=== PATIENT | female | born 1945 | race Caucasian/White ===

== ENCOUNTER 2016-10-10 14:11 | Emergency (ER) | payer OTHER ==
[~2016-10-10] VITALS: Ht 152.4 cm; Wt 106.4 kg
[~2016-10-10 14:11] MED LIST: AMB5 PO; ASPEC325 PO; CLC100 PO; CLR10 PO; CMBIN INH; FRRG PO; HYDR-5688 PO; LYR75 PO; MLXESC PO; MOMLX PO; MULT-589 PO; PRT40 PO
[2016-10-10 14:21] VITALS: TEMP 36.8; Ht 152.4 cm; Wt 106.4 kg
[2016-10-10 14:27] VITALS: O2SAT 99
[2016-10-10] MEDS ORDERED: SODIUM CHLORIDE 0.9% 1000ML 1,000 ML IV STA (14:37)
--- NOTE | 2016-10-10 14:56 | EMERGENCY ROOM VISIT NOTE ---
History Report prepared by Charanjit: Brittney Houston Under the Supervision of: Dr. Kadie Weber D.O. 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 She had just finished eating lunch with her family at [facility] when she suddenly became very hot and nauseated. Her vision started to go black and she was dizzy. She denies feeling like the room was spinning and states that she just felt very lightheaded. Her states that suddenly her head dropped to the side while she was sitting down. He called to her, but she did not respond or look at him. states that she was very pale and her face felt cold, wet, and clammy. The patient does not think that she completely lost consciousness, but she does not remember hearing her talking to her. When she regained complete consciousness, she felt better and was no longer nauseated or lightheaded. denies any shaking or seizure-like activity with today's episode. The patient denies any personal or family history of seizures. Her states that the episodes lasted for about 5-10 minutes before the patient felt better. She states that she is feeling much better now and has no complaints at this time. The patient has had similar episodes over the past several months. She states that it seems to happen after she eats a big meal, although, it has also occurred before she has eaten a meal. She has talked to her telecommunications professional about these episodes. 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 Pt denies headache, blurry vision fevers, chills, chest pain, palpitations, shortness of breath, vomiting, diarrhea, pain with urination, melena, recent illness, and any new swelling in her legs. Source of History: patient, spouse/significant other Onset: SURVEILLANCE SPECIALIST Position: other (global) Quality: other (syncope) Timing: other (episode) Modifying Factors (Worsening): eating Modifying Factors (Relieving): other (time) Associated Symptoms: + nausea, No SOB, No chest pain, No chills, No diarrhea , No fevers, No headache, No melena, No urinary symptoms, No vomiting Note: Pt felt hot, dizzy, and lightheaded. Review of Systems See HPI for pertinent positives & negatives. A total of 10 systems reviewed and were otherwise negative. Past Medical & Surgical Medical Problems: (1) Esophageal reflux (2) Large cell lymphoma, lymph nodes of head, face, and neck (3) Lymphoma in remission (4) right hip AVN Family History No pertinent history stated. Social History Smoking Status: Former Smoker Alcohol Use: none Marital Status: Housing Status: lives with significant other Current/Historical Medications Scheduled Atorvastatin (Lipitor), 20 MG PO DAILY Lisinopril (Lisinopril), 5 MG PO DAILY Metoprolol Succinate (Metoprolol Succinate ER), 25 MG PO DAILY Scheduled PRN Diphenhydramine Hcl (Allergy Relief), 25 MG PO DAILY PRN for ALLERGIC REACTION Ibuprofen (Advil), 400 MG PO Q6 PRN for Pain Allergies Coded Allergies: Penicillins (Verified Allergy, Severe, ANAPHYLAXIS, 10/10/16) Uncoded Allergies: BASE METALS (Allergy, Mild, RASH, 10/30/12) Physical Exam Vital Signs Date Time Temp Pulse Resp B/P Pulse Ox O2 Delivery O2 Flow Rate FiO2 10/10/16 18:08 55 139/73 98 10/10/16 17:31 130/68 10/10/16 17:16 59 14 97 10/10/16 16:31 103/60 10/10/16 16:16 60 20 97 10/10/16 16:00 96/55 10/10/16 15:46 61 17 10/10/16 15:11 61 19 10/10/16 14:41 73 10/10/16 14:30 105/54 10/10/16 14:28 68 10/10/16 14:27 99 Room Air 10/10/16 14:21 36.8 72 19 106/61 99 Room Air 10/10/16 14:19 106/61 Physical Exam GENERAL: alert, well appearing, well nourished, no distress, non-toxic EYE EXAM: normal conjunctiva, PERRL and EOM's grossly intact OROPHARYNX: no exudate, no erythema, lips, buccal mucosa, and tongue normal and mucous membranes are moist NECK: supple, no nuchal rigidity, no adenopathy, non-tender LUNGS: Clear to auscultation. Normal chest wall mechanics HEART: no murmurs, S1 normal and S2 normal ABDOMEN: abdomen soft, non-tender, normo-active bowel sounds, no masses, no rebound or guarding. BACK: Back is symmetrical on inspection and there is no deformity, no midline tenderness, no CVA tenderness. SKIN: no rashes and no bruising UPPER EXTREMITIES: upper extremities are grossly normal. LOWER EXTREMITIES: No pitting edema. NEURO EXAM: Normal sensorium, cranial nerves II-XII grossly intact, normal speech, limited ROM testing of the bilateral lower extremities - pt states is chronic. Sensation intact. Negative pronator drift, no ataxia, no facial droop. Medical Decision & Procedures ER Provider Diagnostic Interpretation: Radiology results have been interpreted by the radiologist and reviewed by me. HEAD CT NONCONTRAST CT DOSE: 537.48 mGy.cm HISTORY: syncope, hx brain tumor TECHNIQUE: Multiaxial CT images of the head were performed without the use of intravenous contrast. Automated exposure control was utilized for this study. Comparison: Head CT 09/18/2008. Brain MRI 09/28/2008. Findings: The paranasal sinuses and mastoid air cells are clear. There are right frontal and parietal desiree holes. There is metallic plate overlying the right parietal desiree hole. No calvarial fractures. There are no masses identified on this noncontrast study. There is no hematoma, midline shift, acute infarct. There is abnormal hypodensity within the white matter of the frontal and parietal lobes. There is mild atrophy within the brain. Impression: 1. No acute hemorrhage. 2. No acute infarct. 3. Abnormal hypodensity within the white matter of the frontal and parietal lobes. This favors posttreatment changes. Comparison to a recent study would be helpful to assess for stability. No definite masses identified. Electronically signed by: Tarun Howard M.D. 10/10/2016 3:51 PM Dictated Date/Time: 10/10/2016 3:47 PM CHEST ONE VIEW PORTABLE HISTORY: syncope COMPARISON: Chest 09/28/2008. FINDINGS: No focal lung consolidations to suggest pneumonia. No evidence for pulmonary edema. The heart is top normal in size. There are low lung volumes. No pleural effusions. No pneumothorax. Cholecystectomy. Increased markings within the right medial lung base is likely due to vascular crowding from the low lung volumes. IMPRESSION: No acute process. Electronically signed by: Tarun Howard M.D. 10/10/2016 3:56 PM Dictated Date/Time: 10/10/2016 3:55 PM CHEST CTA for PULMONARY ARTERIES CT DOSE: 599.79 mGy.cm HISTORY: Syncope. TECHNIQUE: Multiaxial CT images of the chest were performed following the intravenous administration of contrast to evaluate the pulmonary arteries. Maximal intensity projection images were also obtained. COMPARISON STUDY: None. FINDINGS: There is a normal caliber thoracic aorta with no evidence for dissection. There is no evidence for pulmonary embolus. No pleural effusions. No pneumothorax. The liver and spleen are unremarkable. No mediastinal or hilar lymphadenopathy. The central airways are patent. Cholecystectomy. Mild elevation of the right hemidiaphragm. Question of bilateral faint perihilar airspace opacities and mild bronchial wall thickening. IMPRESSION: 1. No evidence for pulmonary embolus. 2. There appears be faint bilateral perihilar airspace opacities and mild bronchial wall thickening. This could be due to air trapping. However, a low-grade pneumonitis or developing mild congestive change could also have a similar appearance. Electronically signed by: Tarun Howard M.D. 10/10/2016 5:10 PM Dictated Date/Time: 10/10/2016 5:04 PM Laboratory Results 10/10/16 14:55 Red Blood Count 3.60, Mean Corpuscular Volume 99.7, Mean Corpuscular Hemoglobin 31.9, Mean Corpuscular Hemoglobin Concent 32.0, Mean Platelet Volume 10.6, Neutrophils (%) (Auto) 78.9, Lymphocytes (%) (Auto) 13.7, Monocytes (%) (Auto) 6.2, Eosinophils (%) (Auto) 0.8, Basophils (%) (Auto) 0.2, Neutrophils # (Auto) 4.98, Lymphocytes # (Auto) 0.86, Monocytes # (Auto) 0.39, Eosinophils # (Auto) 0.05, Basophils # (Auto) 0.01 10/10/16 14:55 Test 10/10/16 14:55 10/10/16 17:10 White Blood Count 6.30 K/uL (4.8-10.8) Red Blood Count 3.60 M/uL (4.2-5.4) Hemoglobin 11.5 g/dL (12.0-16.0) Hematocrit 35.9 % (37-47) Mean Corpuscular Volume 99.7 fL (80-100) Mean Corpuscular Hemoglobin 31.9 pg (25-34) Mean Corpuscular Hemoglobin Concent 32.0 g/dl (32-36) Platelet Count 170 K/uL (130-400) Mean Platelet Volume 10.6 fL (7.4-10.4) Neutrophils (%) (Auto) 78.9 % Lymphocytes (%) (Auto) 13.7 % Monocytes (%) (Auto) 6.2 % Eosinophils (%) (Auto) 0.8 % Basophils (%) (Auto) 0.2 % Neutrophils # (Auto) 4.98 K/uL (1.4-6.5) Lymphocytes # (Auto) 0.86 K/uL (1.2-3.4) Monocytes # (Auto) 0.39 K/uL (0.11-0.59) Eosinophils # (Auto) 0.05 K/uL (0-0.5) Basophils # (Auto) 0.01 K/uL (0-0.2) RDW Standard Deviation 50.8 fL (36.4-46.3) RDW Coefficient of Variation 13.9 % (11.5-14.5) Immature Granulocyte % (Auto) 0.2 % Immature Granulocyte # (Auto) 0.01 K/uL (0.00-0.02) D-Dimer 870 ug/L FEU (0-500) Anion Gap 7.0 mmol/L (3-11) Est Creatinine Clear Calc Drug Dose 60.1 ml/min Estimated GFR () 69.4 Estimated GFR (Non- 59.9 BUN/Creatinine Ratio 20.3 (10-20) Calcium Level 7.9 mg/dl (8.5-10.1) Total Bilirubin 0.4 mg/dl (0.2-1) Aspartate Amino Transf (AST/SGOT) 13 U/L (15-37) Alanine Aminotransferase (ALT/SGPT) 17 U/L (12-78) Alkaline Phosphatase 138 U/L (45-117) Troponin I < 0.015 ng/ml (0-0.045) Total Protein 6.2 gm/dl (6.4-8.2) Albumin 3.1 gm/dl (3.4-5.0) Globulin 3.1 gm/dl (2.5-4.0) Albumin/Globulin Ratio 1.0 (0.9-2) Urine Color YELLOW Urine Appearance CLEAR (CLEAR) Urine pH 5.0 (4.5-7.5) Urine Specific [place] 1.022 (1.000-1.030) Urine Protein NEG (NEG) Urine Glucose (UA) NEG (NEG) Urine Ketones NEG (NEG) Urine Occult Blood NEG (NEG) Urine Nitrite NEG (NEG) Urine Bilirubin NEG (NEG) Urine Urobilinogen NEG (NEG) Urine Leukocyte Esterase NEG (NEG) Laboratory results per my review. Medications Administered Medications (Trade) Dose Ordered Sig/Rissa Route Start Time Stop Time Status Last Admin Dose Admin Sodium Chloride (Nss 1000ml) 1,000 ml @ 250 mls/hr Q4H STAT IV 10/10/16 14:37 10/10/16 18:32 DC 10/10/16 15:39 250 MLS/HR ECG Indication: syncope Rate (beats per minute): 60 Rhythm: normal sinus Findings: LBBB, no acute ischemic change, other (normal axis) Comparison ECG Date: 10/14/14 Change: no significant change ED Course 1424: The patient was evaluated in room B9. A complete history and physical exam was performed. 1437: NSS 1000 ml @ 250 mls/hr IV 1526: The patient is at CT. 1610: I reevaluated the patient and she is doing well. 1735: I reassessed the patient at this time. She is feeling better and resting comfortably. She and states is similar to prior episodes and that they feel the episodes typically happen after eating a large meal. She was up to go to the bathroom and felt steady on her feet. I discussed the results and treatment plan with the patient and her family. I answered all pertaining questions that they had. They expressed understanding and verbalized agreement. The patient will be discharged home. Medical Decision Differential diagnosis includes etiologies such as vasovagal event, infection, hypoglycemia, electrolyte abnormalities, cardiac sources, intracerebral event, toxicologic, neurologic, as well as others were entertained. Patient well-appearing here throughout, labs and imaging reassuring. Discussed all results with patient at bedside. Patient and related with a steady gait, had no recurrence of any symptoms, and tolerated by mouth. Discussed given pattern of events related to eating and description of event today, more likely vasovagal event. No evidence of dysrhythmias noted on telemetry, doubt seizure , occult infectious etiology, ACS, dissection, no evidence of PE, doubt CVA, patient mildly dehydrated but otherwise well-appearing. No other change in patient's multiple chronic conditions and medications. Doubt adverse reaction of medication. Discussed with patient close follow-up with family doctor and cardiology as a precaution, symptoms to watch and return for, they verbalized understanding were agreeable with plan. Mild elevation patient's alkaline phosphatase, do not feel this is clinically significant or relevant to the patient's presentation today. Impression Primary Impression: Syncope Scribe Attestation The scribe's documentation has been prepared under my direction and personally reviewed by me in its entirety. I confirm that the note above accurately reflects all work, treatment, procedures, and medical decision making performed by me. Departure Information Dispostion Home / Self-Care Referrals Reid Young M.D.(ZAKIA) (PCP) Forms HOME CARE DOCUMENTATION FORM, IMPORTANT VISIT INFORMATION Patient Instructions My [facility] Additional Instructions Please follow-up with your family doctor about the episode you had today. Please continue regular medications as prescribed. Please drink plenty of water. If you have any recurrent episodes of lightheadedness, nausea, feel hot or cold, develop chest pain or pressure, trouble breathing, feel you are unable to walk, or you have any other new concerns, please return the emergency room. Problem Qualifiers Primary Impression: Syncope Syncope type: vasovagal syncope Qualified Codes: R55 - Syncope and collapse
[2016-10-10] MEDS ORDERED: LSN5 PO (15:08)
[2016-10-10] MEDS ORDERED: ATOR-22 PO (15:08)
[2016-10-10] MEDS ORDERED: TPRSR/25 PO (15:08)
[2016-10-10] MEDS ORDERED: DIPH25CA PO (15:10)
[2016-10-10] MEDS ORDERED: IBUP-1050 PO (15:10)
[2016-10-10 15:11] LABS: BASO % 0.2 %; BASO ABS # 0.01 K/uL (0-0.2); COMPLETE YES; EOS % 0.8 %; HEMATOCRIT 35.9 % (37-47); IG% 0.2 %; LYMPH % 13.7 %; LYMPH ABS # 0.86 K/uL (1.2-3.4); MEAN CELL VOLUME 99.7 fL (80-100); MEAN CORPUSCULAR HEMOGLOBIN 31.9 pg (25-34); MEAN PLATELET VOLUME 10.6 fL (7.4-10.4); MONO % 6.2 %; NEUT % 78.9 %; PLATELET COUNT 170 K/uL (130-400)
[2016-10-10 15:24] LABS: ALT/SGPT 17 U/L (12-78); AST/SGOT 13 U/L (15-37); BLOOD UREA NITROGEN 19 mg/dl (7-18); BUN/CREATININE RATIO 20.3 (10-20); CALCIUM 7.9 mg/dl (8.5-10.1); CARBON DIOXIDE 26 mmol/L (21-32); CHLORIDE 111 mmol/L (98-107); CREATININE 0.96 mg/dl (0.60-1.20); GLUCOSE 108 mg/dl (70-99); POTASSIUM 3.8 mmol/L (3.5-5.1); SODIUM 144 mmol/L (136-145)
[2016-10-10 15:29] LABS: ALKALINE PHOSPHATASE 138 U/L (45-117)
--- NOTE | 2016-10-10 15:53 | DIAGNOSTIC IMAGING REPORT ---
HEAD CT NONCONTRAST CT DOSE: 537.48 mGy.cm HISTORY: syncope, hx brain tumor TECHNIQUE: Multiaxial CT images of the head were performed without the use of intravenous contrast. Automated exposure control was utilized for this study. Comparison: Head CT 09/18/2008. Brain MRI 09/28/2008. Findings: The paranasal sinuses and mastoid air cells are clear. There are right frontal and parietal desiree holes. There is metallic plate overlying the right parietal desiree hole. No calvarial fractures. There are no masses identified on this noncontrast study. There is no hematoma, midline shift, acute infarct. There is abnormal hypodensity within the white matter of the frontal and parietal lobes. There is mild atrophy within the brain. Impression: 1. No acute hemorrhage. 2. No acute infarct. 3. Abnormal hypodensity within the white matter of the frontal and parietal lobes. This favors posttreatment changes. Comparison to a recent study would be helpful to assess for stability. No definite masses identified. Electronically signed by: Tarun Howard M.D. 10/10/2016 3:51 PM Dictated Date/Time: 10/10/2016 3:47 PM
--- NOTE | 2016-10-10 15:57 | DIAGNOSTIC IMAGING REPORT ---
CHEST ONE VIEW PORTABLE HISTORY: syncope COMPARISON: Chest 09/28/2008. FINDINGS: No focal lung consolidations to suggest pneumonia. No evidence for pulmonary edema. The heart is top normal in size. There are low lung volumes. No pleural effusions. No pneumothorax. Cholecystectomy. Increased markings within the right medial lung base is likely due to vascular crowding from the low lung volumes. IMPRESSION: No acute process. Electronically signed by: Tarun Howard M.D. 10/10/2016 3:56 PM Dictated Date/Time: 10/10/2016 3:55 PM
[2016-10-10] MEDS ORDERED: OPTIRAY 320 IV PRN (16:45)
--- NOTE | 2016-10-10 17:12 | DIAGNOSTIC IMAGING REPORT ---
CHEST CTA for PULMONARY ARTERIES CT DOSE: 599.79 mGy.cm HISTORY: Syncope. TECHNIQUE: Multiaxial CT images of the chest were performed following the intravenous administration of contrast to evaluate the pulmonary arteries. Maximal intensity projection images were also obtained. COMPARISON STUDY: None. FINDINGS: There is a normal caliber thoracic aorta with no evidence for dissection. There is no evidence for pulmonary embolus. No pleural effusions. No pneumothorax. The liver and spleen are unremarkable. No mediastinal or hilar lymphadenopathy. The central airways are patent. Cholecystectomy. Mild elevation of the right hemidiaphragm. Question of bilateral faint perihilar airspace opacities and mild bronchial wall thickening. IMPRESSION: 1. No evidence for pulmonary embolus. 2. There appears be faint bilateral perihilar airspace opacities and mild bronchial wall thickening. This could be due to air trapping. However, a low-grade pneumonitis or developing mild congestive change could also have a similar appearance. Electronically signed by: Tarun Howard M.D. 10/10/2016 5:10 PM Dictated Date/Time: 10/10/2016 5:04 PM
[2016-10-10 17:25] LABS: URINE APPEARANCE CLEAR (CLEAR); URINE BILIRUBIN NEG (NEG); URINE COLOR YELLOW; URINE NITRITE NEG (NEG); URINE SPECIFIC GRAVITY 1.022 (1.000-1.030); UROBILINOGEN NEG (NEG); ZZUR CULT IF INDIC CLEAN CATCH NO
[2016-10-10 17:29] LABS: MANUAL MICROSCOPIC REQUIRED? NO; REVIEW REQ? NO
[2016-10-10 18:08] VITALS: BP 139/73; PULSE 55; O2SAT 98
== END 2016-10-10 18:09 | disposition home or self-care (01) ==
LOC: EDBD 14:11 → C.EDB 14:12
DX: R55 Syncope and collapse (principal); R11.0 Nausea; R42 Dizziness and giddiness; Z85.72 Personal history of non-Hodgkin lymphomas; Z85.841 Personal history of malignant neoplasm of brain; M87.051 Idiopathic aseptic necrosis of right femur; K21.9 Gastro-esophageal reflux disease without esophagitis; Z87.891 Personal history of nicotine dependence

== ENCOUNTER 2016-11-19 08:16 | Emergency (ER) | payer OTHER ==
[~2016-11-19] VITALS: Ht 152.4 cm; Wt 102.0 kg
[~2016-11-19 08:16] MED LIST changes: -AMB5 PO; -ASPEC325 PO; +ATOR-22 PO; -CLC100 PO; -CLR10 PO; -CMBIN INH; +DIPH25CA PO; -FRRG PO; -HYDR-5688 PO; +IBUP-1050 PO; +LSN5 PO; -LYR75 PO; -MLXESC PO; -MOMLX PO; -MULT-589 PO; -PRT40 PO; +TPRSR/25 PO
[2016-11-19 08:20] VITALS: TEMP 36.6; Ht 152.4 cm; Wt 102.0 kg
[2016-11-19] MEDS ORDERED: ONDANSETRON INJ 2 MG/ML 2 ML VIAL IV STA (08:52)
[2016-11-19] MEDS ORDERED: MoRPHine SULFATE 4 MG/ML 1 ML CARP\\VIAL IV STA ×2 (08:52→11:02)
--- NOTE | 2016-11-19 08:59 | EMERGENCY ROOM VISIT NOTE ---
History Report prepared by Charanjit: Lizz Armendariz Under the Supervision of: Dr. Endy Long M.D. First contact with patient: 08:40 Chief Complaint: FALL Stated Complaint: FELL,HURT R SHOULDER/KNEE, A LOT OF PAIN History of Present Illness The patient is a 71 year old female who presents to the Emergency Room with complaints of an episode of a fall beginning 3 hours ago. The patient states that she fell this morning after getting out of bed and tripping on her cat. She reports that she fell onto her right side. She complains of throbbing pain in her right knee and right shoulder that radiates into the wrist. The patient denies any chest pain, dizziness, shortness of breath, neck pain, back pain, abdominal pain, numbness, and weakness. She notes that she has a history of cancer and hip replacement that is doing well. Source of History: patient, spouse/significant other Onset: 3 hours ago Position: other (global) Quality: other (throbbing) Timing: other (episode) Associated Symptoms: No neck pain, No chest pain, No SOB, No abdominal pain , No back pain, No weakness, No numbness Note: Pt complains of right knee and shoulder pain that radiates into the hip. The patient denies any dizziness. Review of Systems See HPI for pertinent positives & negatives. A total of 10 systems reviewed and were otherwise negative. Past Medical & Surgical Medical Problems: (1) Esophageal reflux (2) Large cell lymphoma, lymph nodes of head, face, and neck (3) Lymphoma in remission (4) right hip AVN Old medical records were reviewed. Nurse's notes were reviewed and I agree with. Family History No pertinent family history stated. Social History Smoking Status: Former Smoker Alcohol Use: none Marital Status: Housing Status: lives with significant other Current/Historical Medications Scheduled Atorvastatin (Lipitor), 20 MG PO DAILY Lisinopril (Lisinopril), 5 MG PO DAILY Metoprolol Succinate (Metoprolol Succinate ER), 25 MG PO DAILY Scheduled PRN Oxycodone Immediate Rel Tab (Roxicodone Ir), 1 TAB PO Q6 PRN for Severe Pain Allergies Coded Allergies: Penicillins (Verified Allergy, Severe, ANAPHYLAXIS, 10/10/16) Uncoded Allergies: BASE METALS (Allergy, Mild, RASH, 10/30/12) Physical Exam Vital Signs Date Time Temp Pulse Resp B/P (MAP) Pulse Ox O2 Delivery O2 Flow Rate FiO2 11/19/16 11:23 60 18 119/69 94 Room Air 11/19/16 10:54 60 18 131/80 94 11/19/16 08:20 36.6 96 18 101/60 95 Room Air Physical Exam General: Well developed well nourished in no acute distress, breathing comfortably on room air. Normal speech. Mildly uncomfortable appearing older female. HEENT: Normal cephalic atraumatic. Pupils are equal round and reactive to light. Sclerae are anicteric. Extraocular movements are intact. Oropharynx is pink with moist mucous membranes. No swelling of the mouth lips or tongue. Neck: Supple with a midline trachea. No meningeal signs or stiffness, no JVD or bruits. No Stridor. Chest: Clear to auscultation bilaterally. No wheezes or rhonchi. No increased work of breathing. Heart: regular rate and rhythm. Abdomen: Soft nontender, nondistended without rebound guarding or rigidity. Extremities: No cyanosis clubbing or edema. No calf tenderness or assymetry. Right shoulder has mild pain with movement but has full ROM, right knee is tender to palpation. Spine/Back. Non tender to palpation. No CVA tenderness Skin: Good turgor without rashes. Neurologic exam: Cranial nerves two through 12 are intact. Motor and sensation are intact and symmetrical throughout. GCS 15. Medical Decision & Procedures ER Provider Diagnostic Interpretation: X-ray results as stated below per interpretation by me and the radiologist: RIGHT SHOULDER 3 VIEWS FINDINGS: There is no fracture or dislocation. Soft tissues are unremarkable. No radiopaque foreign bodies. IMPRESSION: No fractures. Electronically signed by: Tarun Howard M.D. 11/19/2016 9:48 AM Dictated Date/Time: 11/19/2016 9:47 AM RIGHT KNEE 2 VIEWS FINDINGS: AP and crosstable lateral portable views of the right knee are obtained. No prior studies are available for comparison at the time of dictation. The skeletal structures are osteopenic. No fracture is seen. There is mild tricompartmental degenerative joint space narrowing. Small patellar enthesophytes are observed. No joint effusion is seen. Mild prepatellar soft tissue swelling is noted. IMPRESSION: 1. Mild soft tissue swelling. No fracture is identified. 2. Osteopenia and minimal degenerative change as above. Electronically signed by: Renaldo Leong M.D. 11/19/2016 9:46 AM Dictated Date/Time: 11/19/2016 9:45 AM CHEST ONE VIEW PORTABLE FINDINGS: The cardiac and mediastinal contours are normal. There is no evidence of focal pulmonary consolidation. There is no evidence of failure. No pleural effusions are visualized.[ There is no pneumothorax. Surgical clips are visualized the base the left neck. There are right upper quadrant surgical clips likely secondary to a prior cholecystectomy. IMPRESSION: No active disease in the chest. Electronically signed by: Domenico Dee M.D. 11/19/2016 9:52 AM Dictated Date/Time: 11/19/2016 9:51 AM Medications Administered Medications (Trade) Dose Ordered Sig/Rissa Route Start Time Stop Time Status Last Admin Dose Admin Morphine Sulfate (MoRPHine SULFATE INJ) 4 mg NOW STAT IV 11/19/16 08:52 11/19/16 08:54 DC 11/19/16 09:02 4 MG Ondansetron HCl (Zofran Inj) 4 mg NOW STAT IV 11/19/16 08:52 11/19/16 08:54 DC 11/19/16 09:02 4 MG Morphine Sulfate (MoRPHine SULFATE INJ) 4 mg NOW STAT IV 11/19/16 11:02 11/19/16 11:04 DC 11/19/16 11:17 4 MG ED Course 0840: Past medical records reviewed. The patient was evaluated in room B7, and a complete history and physical examination were performed. 0852: Zofran Inj 4mg IV, Morphine Sulfate 4mg IV. 1059: I reevaluated the patient. She is having some pain. 1102: Morphine Sulfate 4mg IV. 1131: Upon reevaluation, the patient is doing well. I discussed the results and treatment plan with the patient. She verbalized agreement of the treatment plan. The patient was discharged home. Medical Decision Differential diagnosis includes fracture, dislocation, sprain, contusion. Blood pressure Screening: Patient was found to have normal blood pressure on screening and does not require follow-up. Medication Reconciliation: I attest that I have personally reviewed the patient' s current medication list. This patient comes in as described above. She was placed in room B7. She is here for treatment and evaluation of a mechanical fall. She has pain in the right shoulder and knee. I obtained x-rays of the right knee, shoulder and chest. There are no acute fractures or abnormalities seen most likely she has sprains and contusions. She was given IV morphine and Zofran twice while she was here she was given a sling and Esteban wrap . she should rest, ice ,and elevate .use ibuprofen for pain. For breakthrough pain, she can use OxyIR 5 mg, one or 2 pills every 4-6 hours as needed. She was warned that OxyIR could make her drowsy and do not take for drinking, driving, working. She was happy with plan and discharged to home. Impression Primary Impression: Contusion of right shoulder Additional Impression: Contusion of right knee Scribe Attestation The scribe's documentation has been prepared under my direction and personally reviewed by me in its entirety. I confirm that the note above accurately reflects all work, treatment, procedures, and medical decision making performed by me. Departure Information Dispostion Home / Self-Care Prescriptions Oxycodone Immediate Rel Tab (ROXICODONE IR) 5 Mg Tab 1 TAB PO Q6 Y for Severe Pain, #24 TAB Prov: Endy Long M.D. 11/19/16 Referrals Reid Young M.D.([facility]) (PCP) Forms HOME CARE DOCUMENTATION FORM, IMPORTANT VISIT INFORMATION Patient Instructions My [facility] Additional Instructions Rest. Drink plenty of fluids. Ice intermittently. Use sling and Esteban wrap for comfort. Use ibuprofen 400 mg every 6 hours, take with food For more severe pain use OxyIR 5 mg, 1 pill every 6 hours as needed OxyIR may make you drowsy- do not take before drinking, driving, working Return if: Increasing pain, worseningof symptoms, shortness of breath, fever chills, any new problems or concerns. Follow-up with your doctor Tuesday for recheck Problem Qualifiers
--- NOTE | 2016-11-19 09:48 | DIAGNOSTIC IMAGING REPORT ---
RIGHT KNEE 2 VIEWS CLINICAL HISTORY: Right knee pain. FINDINGS: AP and crosstable lateral portable views of the right knee are obtained. No prior studies are available for comparison at the time of dictation. The skeletal structures are osteopenic. No fracture is seen. There is mild tricompartmental degenerative joint space narrowing. Small patellar enthesophytes are observed. No joint effusion is seen. Mild prepatellar soft tissue swelling is noted. IMPRESSION: 1. Mild soft tissue swelling. No fracture is identified. 2. Osteopenia and minimal degenerative change as above. Electronically signed by: Renaldo Leong M.D. 11/19/2016 9:46 AM Dictated Date/Time: 11/19/2016 9:45 AM
--- NOTE | 2016-11-19 09:49 | DIAGNOSTIC IMAGING REPORT ---
RIGHT SHOULDER 3 VIEWS HISTORY: Right shoulder pain. eval for trauma Right COMPARISON: None. FINDINGS: There is no fracture or dislocation. Soft tissues are unremarkable. No radiopaque foreign bodies. IMPRESSION: No fractures. Electronically signed by: Tarun Howard M.D. 11/19/2016 9:48 AM Dictated Date/Time: 11/19/2016 9:47 AM
--- NOTE | 2016-11-19 09:53 | DIAGNOSTIC IMAGING REPORT ---
CHEST ONE VIEW PORTABLE CLINICAL HISTORY: Atypical chest pain. Trauma. COMPARISON STUDY: 10/10/2016 FINDINGS: The cardiac and mediastinal contours are normal. There is no evidence of focal pulmonary consolidation. There is no evidence of failure. No pleural effusions are visualized.[ There is no pneumothorax. Surgical clips are visualized the base the left neck. There are right upper quadrant surgical clips likely secondary to a prior cholecystectomy. IMPRESSION: No active disease in the chest. Electronically signed by: Domenico Dee M.D. 11/19/2016 9:52 AM Dictated Date/Time: 11/19/2016 9:51 AM
[2016-11-19] MEDS ORDERED: OXYC1TAB3 PO (11:05)
[2016-11-19 11:23] VITALS: BP 119/69; PULSE 60; O2SAT 94
== END 2016-11-19 11:53 | disposition home or self-care (01) ==
LOC: C.EDB 08:17
DX: S40.011A Contusion of right shoulder, initial encounter (principal); S80.01XA Contusion of right knee, initial encounter; W01.0XXA Fall on same level from slipping, tripping and stumbling without subsequent striking against object, initial encounter; Z96.649 Presence of unspecified artificial hip joint; C85.91 Non-Hodgkin lymphoma, unspecified, lymph nodes of head, face, and neck; Z87.891 Personal history of nicotine dependence; Z79.899 Other long term (current) drug therapy

== ENCOUNTER 2017-10-12 17:43 | Emergency (ER) | payer OTHER ==
[~2017-10-12] VITALS: Ht 152.4 cm; Wt 96.4 kg
[~2017-10-12 17:43] MED LIST changes: -DIPH25CA PO; -IBUP-1050 PO
[2017-10-12 17:50] VITALS: TEMP 36.5; Ht 152.4 cm; Wt 96.4 kg
[2017-10-12] MEDS ORDERED: IBUPROFEN 600 MG TAB PO STA (18:13)
[2017-10-12] MEDS ORDERED: LSN25 PO (18:26)
[2017-10-12] MEDS ORDERED: DIPH1TAB87 PO (18:26)
[2017-10-12] MEDS ORDERED: IBUP-1050 PO (18:26)
--- NOTE | 2017-10-12 19:21 | DIAGNOSTIC IMAGING REPORT ---
HEAD CT NONCONTRAST CT DOSE: 720.95 mGycm HISTORY: fall, balance issues, chronic left sided weakness TECHNIQUE: Multiaxial CT images of the head were performed without the use of intravenous contrast. Automated exposure control was utilized for this study. A dose lowering technique was utilized adhering to the principles of ALARA. Comparison: Head CT 10/10/2016. Findings: The paranasal sinuses and mastoid air cells are clear. There are right frontal and parietal desiree holes. There is metallic plate overlying the right parietal desiree hole. No calvarial fractures. There are no masses identified on this noncontrast study. There is no hematoma, midline shift, acute infarct. There is abnormal hypodensity within the white matter of the frontal and parietal lobes. There is mild atrophy within the brain. Impression: 1. No acute hemorrhage. 2. No acute infarct. 3. Overall, no significant change. Abnormal hypodensity within the white matter of the frontal and parietal lobes. Electronically signed by: Tarun Howard M.D. 10/12/2017 7:20 PM Dictated Date/Time: 10/12/2017 7:13 PM
--- NOTE | 2017-10-12 19:21 | DIAGNOSTIC IMAGING REPORT ---
CERVICAL SPINE W/O CT DOSE: 583.66 mGycm CLINICAL HISTORY: 71 years-old Female with fall, balance issues, . Acute neck injury status post fall COMPARISON: CT head of same day TECHNIQUE: Multiple axial CT images of the cervical spine were obtained without contrast. A dose lowering technique was utilized adhering to the principles of ALARA. FINDINGS: The bones appear mildly demineralized. Circumscribed cystic lesion about the occiput, 1.6 cm suggests arachnoid granulation. Moderate multilevel facet arthrosis. Moderate intervertebral disc space narrowing at C4-C5, C5-C6 and C6-C7. Evaluation of the central canal and neural foramina is better assessed by MRI. Mastoid air cells and middle ear cavities appear clear. Mild mucoperiosteal thickening about the right maxillary sinus. There is no acute cervical spine fracture or subluxation identified. Ill-defined groundglass opacities of the right lung apex may reflect atelectasis. No pneumothorax. Surgical clips within the left supraclavicular tissues. No adenopathy. IMPRESSION: No acute cervical spine fracture or subluxation. The above report was generated using voice recognition software. It may contain grammatical, syntax or spelling errors. Electronically signed by: Naseem Tony M.D. 10/12/2017 7:19 PM Dictated Date/Time: 10/12/2017 7:16 PM
--- NOTE | 2017-10-12 19:23 | DIAGNOSTIC IMAGING REPORT ---
R SHOULDER MIN 2 VIEWS ROUTINE HISTORY: 71 years-old Female fall, r shoulder pain acute right shoulder pain status post fall COMPARISON: Right shoulder radiographs 11/19/2016 TECHNIQUE: 3 views of the right shoulder FINDINGS: Mild degenerative changes without acute fracture or dislocation. The bones appear mildly demineralized. Lung arciniega appear clear. IMPRESSION: No acute fracture or dislocation. The above report was generated using voice recognition software. It may contain grammatical, syntax or spelling errors. Electronically signed by: Naseem Tony M.D. 10/12/2017 7:22 PM Dictated Date/Time: 10/12/2017 7:21 PM
--- NOTE | 2017-10-12 19:25 | DIAGNOSTIC IMAGING REPORT ---
PELVIS/BILATERAL HIP 2 VIEWS HISTORY: 71 years-old Female fall, pelvic pain acute pelvic pain status post fall COMPARISON: None available TECHNIQUE: AP view the pelvis with 2 views of the bilateral hips FINDINGS: The bones appear mildly demineralized. Degenerative changes of the lower lumbar spine, SI joints and pubic symphysis. Moderate left hip osteoarthritis. Right hip arthroplasty with satisfactory alignment. No pelvic ring fracture identified. No opaque foreign body. Peripheral arterial calcifications are noted. IMPRESSION: No acute fracture or dislocation. The above report was generated using voice recognition software. It may contain grammatical, syntax or spelling errors. Electronically signed by: Naseem Tony M.D. 10/12/2017 7:24 PM Dictated Date/Time: 10/12/2017 7:22 PM
--- NOTE | 2017-10-12 20:35 | EMERGENCY ROOM VISIT NOTE ---
History First contact with patient: 17:49 Chief Complaint: FALL Stated Complaint: FALL, R HIP PAIN History of Present Illness The patient is a 71 year old female who presents to the Emergency Room with complaints of a fall 1 hour prior to arrival. Patient states she was in her bedroom, closing a door to put her cats in the bathroom when she lost her balance, fell backward into a window ledge and then ended up on the ground. Patient is chronically weak and states she never has the energy to lift herself up on her own. She does have a cane and walker to ambulate around her house but wasn't using it - she was balancing herself on the perea. Patient has had inpatient rehab at [facility] for previous falls. Patient's PMHx includes a lymphome and brain tumor that have given her chronic left sided weakness which is the reason for her abnormal balance. Patient states that she is in no pain at present but when she moves her limbs there's pain. She doesn't think she broke anything. She did fall about a year ago and didn't come to the ER and then was in a lot of pain. She states that this time she can earlier before her pain can go away. Pt is able to take Ibuprofen without contraindication according to her. Review of Systems See HPI for pertinent positives and negatives. A total of ten systems were reviewed and were otherwise negative. 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 Social History Smoking Status: Former Smoker Alcohol Use: none Marital Status: Housing Status: lives with significant other Current/Historical Medications Scheduled Atorvastatin (Lipitor), 20 MG PO DAILY Lisinopril (Lisinopril), 2.5 MG PO DAILY Metoprolol Succinate (Metoprolol Succinate ER), 12.5 MG PO DAILY Scheduled PRN Diphenhydramine Hcl (Benadryl Allergy), 25-50 MG PO DIRECTED PRN for Seasonal Allergies Ibuprofen (Advil), 200-600 MG PO Q4H PRN for Pain Physical Exam Vital Signs Date Time Temp Pulse Resp B/P (MAP) Pulse Ox O2 Delivery O2 Flow Rate FiO2 10/12/17 17:50 36.5 98 18 135/78 97 Room Air Physical Exam Gen: No acute distress. HEENT: Head - normocephalic and atraumatic. Pupils are equal, round, and reactive to light. Extraocular eye muscles are intact and sclera are anicteric. Nose - moist nasal mucosa without discharge. Mouth - moist buccal mucosa. Oropharynx is nonerythematous and there is no tonsillar exudate or edema noted. Neck: Supple; no JVD, nuchal rigidity, cervical lymphadenopathy, or auscultated bruits. Heart: Regular rate and rhythm. There is a normal S1 and S2 with no murmurs, clicks, or gallops appreciated. Lungs: Clear to auscultation bilaterally with no wheezes, rales, or rhonchi. Abdomen: Soft, completely nontender, nondistended, with good bowel sounds. There are no palpable pulsatile masses or hepatosplenomegaly. There is no guarding, rigidity, or rebound noted. Extremities: No evidence of cyanosis, clubbing, or edema. There are easily palpable peripheral pulses. Neuro:The patient is awake and alert, oriented to day, time, and place. MSK: Muscle strength is 5/5 in all 4 extremities. Pelvis is stable. FROM ( Active and passive) normal in the shoulders, elbows, hips, knees and ankles bilaterally. No obvious signs of trauma anywhere on the body. No cervical or lumbar tenderness. The patient has equal handle turner strength and equal pedal push and pull. There are no cerebellar signs. Medical Decision & Procedures ER Provider Diagnostic Interpretation: CERVICAL SPINE W/O CT DOSE: 583.66 mGycm CLINICAL HISTORY: 71 years-old Female with fall, balance issues, . Acute neck injury status post fall COMPARISON: CT head of same day TECHNIQUE: Multiple axial CT images of the cervical spine were obtained without contrast. A dose lowering technique was utilized adhering to the principles of ALARA. FINDINGS: The bones appear mildly demineralized. Circumscribed cystic lesion about the occiput, 1.6 cm suggests arachnoid granulation. Moderate multilevel facet arthrosis. Moderate intervertebral disc space narrowing at C4-C5, C5-C6 and C6-C7. Evaluation of the central canal and neural foramina is better assessed by MRI. Mastoid air cells and middle ear cavities appear clear. Mild mucoperiosteal thickening about the right maxillary sinus. There is no acute cervical spine fracture or subluxation identified. Ill-defined groundglass opacities of the right lung apex may reflect atelectasis. No pneumothorax. Surgical clips within the left supraclavicular tissues. No adenopathy. IMPRESSION: No acute cervical spine fracture or subluxation. HEAD CT NONCONTRAST CT DOSE: 720.95 mGycm HISTORY: fall, balance issues, chronic left sided weakness TECHNIQUE: Multiaxial CT images of the head were performed without the use of intravenous contrast. Automated exposure control was utilized for this study. A dose lowering technique was utilized adhering to the principles of ALARA. Comparison: Head CT 10/10/2016. Findings: The paranasal sinuses and mastoid air cells are clear. There are right frontal and parietal desiree holes. There is metallic plate overlying the right parietal desiree hole. No calvarial fractures. There are no masses identified on this noncontrast study. There is no hematoma, midline shift, acute infarct. There is abnormal hypodensity within the white matter of the frontal and parietal lobes. There is mild atrophy within the brain. Impression: 1. No acute hemorrhage. 2. No acute infarct. 3. Overall, no significant change. Abnormal hypodensity within the white matter of the frontal and parietal lobes. PELVIS/BILATERAL HIP 2 VIEWS HISTORY: 71 years-old Female fall, pelvic pain acute pelvic pain status post fall COMPARISON: None available TECHNIQUE: AP view the pelvis with 2 views of the bilateral hips FINDINGS: The bones appear mildly demineralized. Degenerative changes of the lower lumbar spine, SI joints and pubic symphysis. Moderate left hip osteoarthritis. Right hip arthroplasty with satisfactory alignment. No pelvic ring fracture identified. No opaque foreign body. Peripheral arterial calcifications are noted. IMPRESSION: No acute fracture or dislocation. R SHOULDER MIN 2 VIEWS ROUTINE HISTORY: 71 years-old Female fall, r shoulder pain acute right shoulder pain status post fall COMPARISON: Right shoulder radiographs 11/19/2016 TECHNIQUE: 3 views of the right shoulder FINDINGS: Mild degenerative changes without acute fracture or dislocation. The bones appear mildly demineralized. Lung arciniega appear clear. IMPRESSION: No acute fracture or dislocation. Medications Administered Medications (Trade) Dose Ordered Sig/Rissa Route Start Time Stop Time Status Last Admin Dose Admin Ibuprofen (Motrin Tab) 600 mg NOW STAT PO 10/12/17 18:13 10/12/17 18:16 DC 10/12/17 19:14 600 MG Medical Decision The patient's care and disposition was discussed with Dr. Weber, Attending ED Physician. This is a 71F presenting after a fall. Differential diagnosis include vasovagal event, mechanical fall, hypoglycemia, electrolyte abnormalities, cardiac sources, intracerebral event, toxicologic, neurologic, as well as others were entertained. Triage Nursing notes were reviewed. ED Course included an extensive history and physical exam, labs X-ray and CT Scan. Due to this patients known history of unsteady gait and previous falls the fall is likely due to pt's underlying medical condition causing her unsteady gait. X-rays and CT Scan were unremarkable. See above. The pt was informed about the findings as listed above. All questions were answered. Return instructions were outlined and the patient was discharged in good condition. The patient was referred to PCP for recheck of the current condition. Head Trauma GCS Score: 15 Impression Primary Impression: Fall Departure Information Dispostion Home / Self-Care Condition GOOD Referrals No Doctor, Assigned (PCP) Patient Instructions ED Prevention Fall, Falls Prevent Exercise, My [facility] Additional Instructions The CT scan of your head and the X-rays of your pelvis, right hip and right shoulder were normal. Please take 400mg Ibuprofen every 8 hours for the next two days to prevent swelling and inflammation from your fall. You may take Ibuprofen every 8 hours as needed thereafter. Please follow up with your primary care provider. You might benefit from a physical therapy referral to strengthen your muscles and improve your balance. Please walk with a walker or other assisting device. Please avoid wearing flip flops or sandals around the house. We recommend wearing proper shoes. Return to the ER if your pain becomes unbearable or you are unable to bear weight on your legs in a standing position. Also return if you become confused , extremely dizzy or delirious. Information on preventing falls will be printed for you on discharge. Please read this information carefully. Resident Involvement: Resident Care Provided Care Provided: Adult [facility]
[2017-10-12 20:53] VITALS: BP 130/72; PULSE 75; O2SAT 95
--- NOTE | 2017-10-12 21:08 | EMERGENCY ROOM VISIT NOTE ---
History Report prepared by Charanjit: Lata Hillman Under the Supervision of: Dr. Kadie Weber D.O. First contact with patient: 17:44 Chief Complaint: FALL Stated Complaint: FALL, R HIP PAIN History of Present Illness The patient is a 71 year old female who presents to the Emergency Room with complaints of an episode of fall ONLINE MERCHANDISING COORDINATOR. The patient was closing a door when lost her balance and fell backwards. She did not have her cane or walker with her. She hit her lower back on the door frame. She complains of right hip, right knee , lower back, and right arm pain. She denies any head injury, LOC, or dizziness. She has a history of right hip replacement. 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 This causes her to be off balance at times making her fall. She last fell several months ago. She is not on blood thinners. She denies any history of back problems. This patient was seen in conjunction with the resident. Please see his notes for additional details also. Source of History: patient Onset: ONLINE MERCHANDISING COORDINATOR Position: back Quality: other (fall) Timing: other (episodic) Associated Symptoms: + back pain Note: Pt reports right hip pain, right knee pain, right arm pain. Review of Systems See HPI for pertinent positives & negatives. A total of 10 systems reviewed and were otherwise negative. Past Medical & Surgical Medical Problems: (1) Esophageal reflux (2) Large cell lymphoma, lymph nodes of head, face, and neck (3) Lymphoma in remission (4) right hip AVN Family History FHx: cancer Heart disease Social History Smoking Status: Former Smoker Alcohol Use: none Marital Status: Housing Status: lives with significant other Current/Historical Medications Scheduled Atorvastatin (Lipitor), 20 MG PO DAILY Lisinopril (Lisinopril), 2.5 MG PO DAILY Metoprolol Succinate (Metoprolol Succinate ER), 12.5 MG PO DAILY Scheduled PRN Diphenhydramine Hcl (Benadryl Allergy), 25-50 MG PO DIRECTED PRN for Seasonal Allergies Ibuprofen (Advil), 200-600 MG PO Q4H PRN for Pain Allergies Coded Allergies: Penicillins (Verified Allergy, Severe, ANAPHYLAXIS, 10/12/17) POLLEN (Verified Allergy, Intermediate, ITCHY EYES, SNEEZING, CONGESTION, 10/12/17) Uncoded Allergies: BASE METALS (Allergy, Mild, RASH, 10/30/12) Physical Exam Vital Signs Date Time Temp Pulse Resp B/P (MAP) Pulse Ox O2 Delivery O2 Flow Rate FiO2 10/12/17 20:53 75 18 130/72 95 10/12/17 20:00 84 18 151/90 98 Room Air 10/12/17 17:50 36.5 98 18 135/78 97 Room Air Physical Exam GENERAL: obese, alopecia, alert, well appearing, no distress, non-toxic EYE EXAM: normal conjunctiva, PERRL and EOM's grossly intact OROPHARYNX: no exudate, no erythema, lips, buccal mucosa, and tongue normal and mucous membranes are moist NECK: supple, no nuchal rigidity, no adenopathy, non-tender LUNGS: Clear to auscultation. Normal chest wall mechanics HEART: no murmurs, S1 normal and S2 normal ABDOMEN: abdomen soft, non-tender, normo-active bowel sounds, no masses, no rebound or guarding. BACK: Back is symmetrical on inspection and there is no deformity, no midline tenderness, no CVA tenderness. SKIN: no rashes and no bruising UPPER EXTREMITIES: Point tenderness at the AC joint, but FROM. No other bony tenderness. LUE was atraumatic. LOWER EXTREMITIES: Right hip pain at the area of the inguinal ligament, no pain over the hip. Knee was tender in the suprapatellar region, no joint effusion. No evidence of trauma to bilateral lower extremities. Good pulses. NEURO EXAM: Normal sensorium, cranial nerves II-XII grossly intact, normal speech, no gross weakness of arms, no gross weakness of legs. Medical Decision & Procedures ER Provider Diagnostic Interpretation: Radiology results have been interpreted by the radiologist and reviewed by me. R SHOULDER MIN 2 VIEWS ROUTINE HISTORY: 71 years-old Female fall, r shoulder pain acute right shoulder pain status post fall COMPARISON: Right shoulder radiographs 11/19/2016 TECHNIQUE: 3 views of the right shoulder FINDINGS: Mild degenerative changes without acute fracture or dislocation. The bones appear mildly demineralized. Lung arciniega appear clear. IMPRESSION: No acute fracture or dislocation. The above report was generated using voice recognition software. It may contain grammatical, syntax or spelling errors. Electronically signed by: Naseem Tony M.D. 10/12/2017 7:22 PM Dictated Date/Time: 10/12/2017 7:21 PM PELVIS/BILATERAL HIP 2 VIEWS HISTORY: 71 years-old Female fall, pelvic pain acute pelvic pain status post fall COMPARISON: None available TECHNIQUE: AP view the pelvis with 2 views of the bilateral hips FINDINGS: The bones appear mildly demineralized. Degenerative changes of the lower lumbar spine, SI joints and pubic symphysis. Moderate left hip osteoarthritis. Right hip arthroplasty with satisfactory alignment. No pelvic ring fracture identified. No opaque foreign body. Peripheral arterial calcifications are noted. IMPRESSION: No acute fracture or dislocation. The above report was generated using voice recognition software. It may contain grammatical, syntax or spelling errors. Electronically signed by: Naseem Tony M.D. 10/12/2017 7:24 PM Dictated Date/Time: 10/12/2017 7:[address]AST CT DOSE: 720.95 mGycm HISTORY: fall, balance issues, chronic left sided weakness TECHNIQUE: Multiaxial CT images of the head were performed without the use of intravenous contrast. Automated exposure control was utilized for this study. A dose lowering technique was utilized adhering to the principles of ALARA. Comparison: Head CT 10/10/2016. Findings: The paranasal sinuses and mastoid air cells are clear. There are right frontal and parietal desiree holes. There is metallic plate overlying the right parietal desiree hole. No calvarial fractures. There are no masses identified on this noncontrast study. There is no hematoma, midline shift, acute infarct. There is abnormal hypodensity within the white matter of the frontal and parietal lobes. There is mild atrophy within the brain. Impression: 1. No acute hemorrhage. 2. No acute infarct. 3. Overall, no significant change. Abnormal hypodensity within the white matter of the frontal and parietal lobes. Electronically signed by: Tarun Howard M.D. 10/12/2017 7:20 PM Dictated Date/Time: 10/12/2017 7:13 PM CERVICAL SPINE W/O CT DOSE: 583.66 mGycm CLINICAL HISTORY: 71 years-old Female with fall, balance issues, . Acute neck injury status post fall COMPARISON: CT head of same day TECHNIQUE: Multiple axial CT images of the cervical spine were obtained without contrast. A dose lowering technique was utilized adhering to the principles of ALARA. FINDINGS: The bones appear mildly demineralized. Circumscribed cystic lesion about the occiput, 1.6 cm suggests arachnoid granulation. Moderate multilevel facet arthrosis. Moderate intervertebral disc space narrowing at C4-C5, C5-C6 and C6-C7. Evaluation of the central canal and neural foramina is better assessed by MRI. Mastoid air cells and middle ear cavities appear clear. Mild mucoperiosteal thickening about the right maxillary sinus. There is no acute cervical spine fracture or subluxation identified. Ill-defined groundglass opacities of the right lung apex may reflect atelectasis. No pneumothorax. Surgical clips within the left supraclavicular tissues. No adenopathy. IMPRESSION: No acute cervical spine fracture or subluxation. The above report was generated using voice recognition software. It may contain grammatical, syntax or spelling errors. Electronically signed by: Naseem Tony M.D. 10/12/2017 7:19 PM Dictated Date/Time: 10/12/2017 7:16 PM Medications Administered Medications (Trade) Dose Ordered Sig/Rissa Route Start Time Stop Time Status Last Admin Dose Admin Ibuprofen (Motrin Tab) 600 mg NOW STAT PO 10/12/17 18:13 10/12/17 18:16 DC 10/12/17 19:14 600 MG ED Course 1932: The patient was evaluated in room B12B. A complete history and physical exam was performed. 1812: Ibuprofen 600 mg PO. 2049: Upon reevaluation, the patient is feeling better. Discussed the findings and the treatment plan with the patient. She verbalizes agreement and understanding. She was discharged home. Patient unable to ambulate here in her usual fashion and felt improved. Patient had no worsening shoulder, neck, back, or hip pain. Patient felt steady on her feet. Patient encouraged to use her cane or walker at all times to help avoid any additional falls. Discussed with patient symptoms to watch and return for. The resident is going to help assure close follow-up with her family doctor. Medical Decision Differential diagnoses include major intracranial, cervical, spinal, thoracic, abdominal, pelvic and neurologic injury. Fracture, contusion, sprain, strain, laceration, abrasions included as well. Patient well-appearing here throughout, imaging negative. Did not feel warranted additional imaging at this time. Patient able to ambulate here without any worsening pain and I have a low suspicion for any additional occult fracture or other occult traumatic injury. Patient not anticoagulated and low risk of additional occult bleeding secondary to trauma. Patient encouraged to use her ambulatory assistive device at all times to help minimize any additional falls. Medication Reconcilliation Current Medication List: was personally reviewed by me Blood Pressure Screening Patient's blood pressure: Elevated blood pressure Blood pressure disposition: Elevated BP felt to be situational Impression Primary Impression: Fall Additional Impressions: Right hip pain Right shoulder pain Scribe Attestation The scribe's documentation has been prepared under my direction and personally reviewed by me in its entirety. I confirm that the note above accurately reflects all work, treatment, procedures, and medical decision making performed by me. Departure Information Dispostion Home / Self-Care Referrals No Doctor, Assigned (PCP) Forms HOME CARE DOCUMENTATION FORM, IMPORTANT VISIT INFORMATION Patient Instructions ED Prevention Fall, Falls Prevent Exercise, [facility] Additional Instructions The CT scan of your head and the X-rays of your pelvis, right hip and right shoulder were normal. Please take 400mg Ibuprofen every 8 hours for the next two days to prevent swelling and inflammation from your fall. You may take Ibuprofen every 8 hours as needed thereafter. Please follow up with your primary care provider. You might benefit from a physical therapy referral to strengthen your muscles and improve your balance. Please walk with a walker or other assisting device. Please avoid wearing flip flops or sandals around the house. We recommend wearing proper shoes. Return to the ER if your pain becomes unbearable or you are unable to bear weight on your legs in a standing position. Also return if you become confused , extremely dizzy or delirious. Information on preventing falls will be printed for you on discharge. Please read this information carefully. Problem Qualifiers Primary Impression: Fall Encounter type: initial encounter Qualified Codes: W19.XXXA - Unspecified fall, initial encounter Additional Impressions: Right shoulder pain Chronicity: acute Qualified Codes: M25.511 - Pain in right shoulder
== END 2017-10-12 20:54 | disposition home or self-care (01) ==
LOC: EDBD 17:43 → C.EDB 17:44
DX: M25.551 Pain in right hip (principal); M25.511 Pain in right shoulder; W19.XXXA Unspecified fall, initial encounter; Y92.003 Bedroom of unspecified non-institutional (private) residence as the place of occurrence of the external cause; E66.9 Obesity, unspecified; Z85.72 Personal history of non-Hodgkin lymphomas; Z91.81 History of falling; Z87.891 Personal history of nicotine dependence; Z79.899 Other long term (current) drug therapy; Z88.0 Allergy status to penicillin; Z91.048 Other nonmedicinal substance allergy status

== ENCOUNTER 2020-06-29 00:57 | Inpatient (IN) ==
[2020-06-29 01:58] LABS: Appearance Urine Turbid (Clear); Bacteria Urine Automated 1+ (Negative); Bilirubin Urine Negative (Negative); Blood Urine 2+ (Negative); Color Urine Yellow; Epithelial Cell Urine Auto >30 /lpf (0-5); Glucose Urine UA Negative (Negative); Ketones Urine Negative (Negative); Leukocyte Esterase Urine 3+ (Negative); Nitrite Urine Positive (Negative); Protein Urine 1+ (Negative); Urobilinogen Urine Negative (Negative); WBC Urine Automated >30 /hpf (0-5); pH Urine 5.5 (4.5-7.5)
[2020-06-29 02:05] LABS: Basophils # (auto) 0.01 K/uL (0-0.2); Basophils % (auto) 0.1 %; Eosinophils # (auto) 0.06 K/uL (0-0.5); Eosinophils % (auto) 0.7 %; Hemoglobin 11.6 g/dL (12.0-16.0); Immature Granulocytes # (auto) 0.02 K/uL (0.00-0.02); Immature Granulocytes % (auto) 0.2 %; Lymphocytes % (auto) 10.9 %; Mean Corpuscular Hemoglobin 32.2 pg (25-34); Mean Corpuscular Hgb Conc 32.2 g/dL (32-36); Mean Platelet Volume 10.6 fL (7.4-10.4); Monocytes # (auto) 0.88 K/uL (0.11-0.59); Monocytes % (auto) 10.6 %; Neutrophils # (auto) 6.42 K/uL (1.4-6.5); Neutrophils % (auto) 77.5 %; Platelet Count 203 K/uL (130-400); RDW Coefficient of Variation 13.2 % (11.5-14.5); RDW Standard Deviation 48.3 fL (36.4-46.3); White Blood Count 8.29 K/uL (4.8-10.8)
[2020-06-29] MEDS ORDERED: SODIUM CHLORIDE 0.9% 500 ML IV ONE ×2 (02:07→03:18)
[2020-06-29 02:15] LABS: INR 0.9 (0.9-1.1); Partial Thromboplastin Ratio 0.8; Partial Thromboplastin Time 22.9 Seconds (21.0-31.0); Prothrombin Time 9.9 Seconds (9.0-12.0)
[2020-06-29 02:18] LABS: Cast Urine Automated 0 /lpf (0-5)
[2020-06-29 02:23] LABS: Alanine Aminotransferase 15 U/L (12-78); Albumin Level 2.7 gm/dl (3.4-5.0); Aspartate Aminotransferase 14 U/L (15-37); BUN Creatinine Ratio 18.6 (10-20); Blood Urea Nitrogen 24 mg/dl (7-18); Calcium 8.2 mg/dl (8.5-10.1); Carbon Dioxide 30 mmol/L (21-32); Chloride 112 mmol/L (98-107); Est GFR (African American) 47.2; Est GFR (Non-African American) 40.8; Glucose 101 mg/dl (70-99); Magnesium 2.4 mg/dl (1.8-2.4); Potassium 4.3 mmol/L (3.5-5.1); Sodium 143 mmol/L (136-145)
[2020-06-29 02:25] LABS: Albumin Globulin Ratio 0.7 (0.9-2); Alkaline Phosphatase 134 U/L (45-117); Bilirubin,Total 0.2 mg/dl (0.2-1); Globulin 3.9 gm/dl (2.5-4.0); Total Protein 6.6 gm/dl (6.4-8.2)
[2020-06-29] MEDS ORDERED: levoFLOXacin/D5W 750 MG/150 ML BAG IV STA (03:22)
--- NOTE | 2020-06-29 03:48 | Emergency Department Note ---
Impression & Plan Acute hypotension, Acute UTI ED Provider Note NAME: SVETA NAVARRO AGE: 74 SEX: F ARRIVES VIA: Ambulance INFORMANT: Patient ED PROVIDER(S): Mari Harrison DO CHIEF COMPLAINT: Dysuria PLAN: Disposition: Admitted to the [facility] Condition: Guarded MEDICAL DECISION MAKING: This is a 74-year-old female patient who has had worsening dysuria over the past 3 to 4 days. Patient has a history of previous urinary tract infections. Tonight, she had such extreme weakness that she was unable to get off of the toilet. EMS was called and found her to be significantly hypotensive. They initiated an IV and gave her a bolus of IV fluids. Patient remained hypertensive here in the emergency department was given IV crystalloid therapy. Urinalysis revealed evidence of UTI. Previous urine cultures were reviewed. 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 She was treated with IV Levaquin. A septic protocol was performed. She had a lactate of 2.1. Despite being hypotensive, the patient was not tachycardic and was easily able to mentate. She was bolused with 30 mL/kg of normal saline solution for ideal body weight. I discussed the case with the [facility] and they will evaluate for further management. Triage Nursing notes reviewed and agree them. Prior medical records reviewed Vital Signs: reviewed and remarkable for hypotension Differential diagnosis: UTI; sepsis; dehydration; renal failure; hypoglycemia ER treatment provided: IV normal saline boluses IV Levaquin Diagnostics interpreted by me: ECG: Normal sinus rhythm at a rate of 69. There is a left bundle branch block with no ectopy. There are no obvious signs of ischemia. This is compared to an EKG from November 2019 and is unchanged. Cardiac Monitoring: Normal sinus rhythm at a rate of 70 Laboratory studies: See below HPI: 74/F arrives for evaluation of dysuria. The patient has had worsening dysuria over the past 3 to 4 days and has developed increasing weakness. Patient has a previous history of urinary tract infections. Patient states that she has been eating and drinking normally but has become increasingly weak to the point that she was unable to get off the toilet today and had to call EMS. Her tried to help her but was unsuccessful. She denies any nausea or vomiting. She denies any fever. ROS: See above HPI for pertinent positives & negatives. A total of 10 systems reviewed and were otherwise negative. PAST MEDICAL HISTORY:See Below PAST SURGICAL HISTORY:See Below FAMILY HISTORY:See Below SOCIAL HISTORY:See Below HOME MEDICATIONS:See list ALLERGIES:See list VITALS:See Below PHYSICAL EXAMINATION: HEENT: Head - normocephalic and atraumatic Pupils are equal, round, and reactive to light. Extraocular eye muscles are intact, and sclera are a nicteric. Nose - moist nasal mucosa without discharge. Mouth - moist buccal mucosa. Oropharynx is nonerythematous and there is no tonsillar exudate or edema noted. Neck: Supple; no JVD or thyromegaly Heart: Regular rate and rhythm. There is a normal S1 and S2 with no murmurs, clicks, or gallops appreciated. Lungs: Clear to auscultation bilaterally with no wheezes, rales, or rhonchi. Abdomen: Soft, completely nontender, mildly distended, with good bowel sounds. There are no palpable pulsatile masses or hepatosplenomegaly. There is no guarding, rigidity, or rebound noted. Extremities: No evidence of cyanosis, clubbing, or edema. There are easily palpable peripheral pulses. Skin: Pale, warm and dry with good turgor and no rashes. ED COURSE: Times/Reassessments: 0115: Patient was evaluated in room a 11. A complete history and physical was performed. An order was placed for continuous cardiac monitoring. The patient was in a normal sinus rhythm at a rate of 70. A septic protocol was performed. The patient was bolused with IV normal saline solution as she was hypotensive. Patient was catheterized for a urine specimen. The patient has severe excoriation around the genitalia. She complained of extreme dysuria. I reviewed multiple previous urine cultures and sensitivities. She will receive IV Levaquin for the urine. She remained hypotensive and was given another bolus of IV normal saline solution. 0320: Patient's blood pressure has improved at this time. I will discuss the case with the [facility] and they can evaluate for further management. I have personally spent greater than 50 minutes of critical care time in the direct management of this patient. This includes bedside care, interpretation of diagnostic studies, and testing, discussion with consultants, patient, and family members, and other required patient management activities. This 50 minutes is in excess of all separately billable procedures. Mari Harrison DO Past Med/Surg History Medical History (Updated 06/30/20 @ 00:47 by Mari Harrison DO) Brain tumor Esophageal reflux Large cell lymphoma, lymph nodes of head, face, and neck Lymphoma in remission Surgical History S/P hip replacement Family History Other Cancer Heart disease Social History Smoking Status: Former smoker Tobacco Type: Cigarettes Hx Alcohol Use: No Hx Substance Use: No Preferred Language: Pashto Communication Ability: Effective [employer] Required: No Beliefs That Will Affect Care: None marital status: Current Living Situation: Spouse current occupational status: retired Feels Safe at Home: Yes Safety Concerns: Feels Safe At This Time Assistive Devices: Walker Allergies Allergies Allergy/AdvReac Type Severity Reaction Status Date / Time Penicillins Allergy Severe Anaphylaxis Verified 06/29/20 01:38 pollen extracts Allergy Intermediate ITCHY Verified 06/29/20 01:38 EYES, SNEEZING, CONGESTION BASE METALS Allergy Mild Rash Uncoded 06/29/20 01:38 Home Meds Home Medications Medication Instructions Recorded Confirmed atorvastatin 20 mg PO QAM 11/10/18 06/29/20 ibuprofen 200 - 600 mg PO Q6H PRN 11/10/18 06/29/20 lisinopril 2.5 mg PO QAM 11/10/18 06/29/20 metoprolol succinate 12.5 mg PO QAM 11/10/18 06/29/20 escitalopram oxalate 5 mg PO DAILY 12/05/19 06/29/20 gabapentin 100 mg PO BID 12/05/19 06/29/20 pantoprazole 40 mg PO DAILY 12/05/19 06/29/20 sulfamethoxazole-trimethoprim 1 tab PO BID 06/29/20 06/29/20 Results & Data (ED) Vital Signs Vital Signs - 24 hr 06/29/20 01:10 06/29/20 01:41 06/29/20 02:17 Temperature 36.5 C Temperature Source Oral Pulse Rate 69 69 Pulse Rate [Left Brachial] 69 69 70 Pulse Rhythm Regular Pulse Rhythm [Left Brachial] Regular Pulse Strength Normal Respiratory Rate 16 20 20 Respiratory Effort / Characteristics Non-Labored Non-Labored Non-Labored Respiratory Depth Normal Blood Pressure 103/64 Blood Pressure [Right Arm] 103/64 98/68 L 96/51 L Blood Pressure Mean 77 Blood Pressure Mean [Right Arm] 77 78 66 Blood Pressure Position Lying Blood Pressure Position [Right Arm] Lying Pulse Oximetry 97 98 98 Oxygen Delivery Method Room Air Room Air Room Air Sepsis Recent Fever Within 48 Hours No Sepsis New/Unexplained Change in Mental Status Yes Sepsis Action Taken by Nursing No Action Required 06/29/20 03:14 06/29/20 03:38 Temperature Temperature Source Pulse Rate Pulse Rate [Left Brachial] 72 67 Pulse Rhythm Pulse Rhythm [Left Brachial] Pulse Strength Respiratory Rate 20 20 Respiratory Effort / Characteristics Non-Labored Non-Labored Respiratory Depth Blood Pressure Blood Pressure [Right Arm] 94/46 L 118/48 L Blood Pressure Mean Blood Pressure Mean [Right Arm] 62 71 Blood Pressure Position Blood Pressure Position [Right Arm] Pulse Oximetry 98 97 Oxygen Delivery Method Room Air Room Air Sepsis Recent Fever Within 48 Hours Sepsis New/Unexplained Change in Mental Status Sepsis Action Taken by Nursing Laboratory Data Result diagrams: 06/29/20 01:56 06/29/20 01:56 Lab Results 06/29/20 06/29/20 06/29/20 Range/Units 01:56 01:56 01:56 WBC 8.29 (4.8-10.8) K/uL RBC 3.60 L (4.2-5.4) M/uL Hgb 11.6 L (12.0-16.0) g/dL Hct 36.0 L (37-47) % MCV 100.0 (80-100) fL MCH 32.2 (25-34) pg MCHC 32.2 (32-36) g/dL RDW Std Deviation 48.3 H (36.4-46.3) fL RDW Coeff of Lizette 13.2 (11.5-14.5) % Plt Count 203 (130-400) K/uL MPV 10.6 H (7.4-10.4) fL Immature Gran % (Auto) 0.2 % Neut % (Auto) 77.5 % Lymph % (Auto) 10.9 % Meeker % (Auto) 10.6 % Eos % (Auto) 0.7 % Baso % (Auto) 0.1 % Neut # (Auto) 6.42 (1.4-6.5) K/uL Lymph # (Auto) 0.90 L (1.2-3.4) K/uL Meeker # (Auto) 0.88 H (0.11-0.59) K/uL Eos # (Auto) 0.06 (0-0.5) K/uL Baso # (Auto) 0.01 (0-0.2) K/uL Immature Gran # (Auto) 0.02 (0.00-0.02) K/uL PT 9.9 (9.0-12.0) Seconds INR 0.9 (0.9-1.1) APTT 22.9 (21.0-31.0) Seconds PTT Ratio 0.8 Sodium 143 (136-145) mmol/L Potassium 4.3 (3.5-5.1) mmol/L Chloride 112 H (98-107) mmol/L Carbon Dioxide 30 (21-32) mmol/L Anion Gap 1.0 L (3-11) BUN 24 H (7-18) mg/dl Creatinine 1.29 H (0.6-1.2) mg/dl Est Cr Clr Drug Dosing 40.0 ml/min Est GFR ( Amer) 47.2 Est GFR (Non-Af Amer) 40.8 BUN/Creatinine Ratio 18.6 (10-20) Glucose 101 H (70-99) mg/dl Lactate (0.4-2.0) mmol/L Calcium 8.2 L (8.5-10.1) mg/dl Magnesium 2.4 (1.8-2.4) mg/dl Total Bilirubin 0.2 (0.2-1) mg/dl AST 14 L (15-37) U/L ALT 15 (12-78) U/L Alkaline Phosphatase 134 H (45-117) U/L Troponin I < 0.015 (0-0.045) ng/ml Total Protein 6.6 (6.4-8.2) gm/dl Albumin 2.7 L (3.4-5.0) gm/dl Globulin 3.9 (2.5-4.0) gm/dl Albumin/Globulin Ratio 0.7 L (0.9-2) TSH 3.160 (0.300-4.500) uIu/ml COVID-19 Eval Order SARS-CoV-2, RNA, NAAT (NEGATIVE) 06/29/20 06/29/20 06/29/20 Range/Units 02:06 03:58 03:58 WBC (4.8-10.8) K/uL RBC (4.2-5.4) M/uL Hgb (12.0-16.0) g/dL Hct (37-47) % MCV (80-100) fL MCH (25-34) pg MCHC (32-36) g/dL RDW Std Deviation (36.4-46.3) fL RDW Coeff of Lizette (11.5-14.5) % Plt Count (130-400) K/uL MPV (7.4-10.4) fL Immature Gran % (Auto) % Neut % (Auto) % Lymph % (Auto) % Meeker % (Auto) % Eos % (Auto) % Baso % (Auto) % Neut # (Auto) (1.4-6.5) K/uL Lymph # (Auto) (1.2-3.4) K/uL Meeker # (Auto) (0.11-0.59) K/uL Eos # (Auto) (0-0.5) K/uL Baso # (Auto) (0-0.2) K/uL Immature Gran # (Auto) (0.00-0.02) K/uL PT (9.0-12.0) Seconds INR (0.9-1.1) APTT (21.0-31.0) Seconds PTT Ratio Sodium (136-145) mmol/L Potassium (3.5-5.1) mmol/L Chloride (98-107) mmol/L Carbon Dioxide (21-32) mmol/L Anion Gap (3-11) BUN (7-18) mg/dl Creatinine (0.6-1.2) mg/dl Est Cr Clr Drug Dosing ml/min Est GFR ( Amer) Est GFR (Non-Af Amer) BUN/Creatinine Ratio (10-20) Glucose (70-99) mg/dl Lactate 2.1 H* (0.4-2.0) mmol/L Calcium (8.5-10.1) mg/dl Magnesium (1.8-2.4) mg/dl Total Bilirubin (0.2-1) mg/dl AST (15-37) U/L ALT (12-78) U/L Alkaline Phosphatase (45-117) U/L Troponin I (0-0.045) ng/ml Total Protein (6.4-8.2) gm/dl Albumin (3.4-5.0) gm/dl Globulin (2.5-4.0) gm/dl Albumin/Globulin Ratio (0.9-2) TSH (0.300-4.500) uIu/ml COVID-19 Eval Order Covid19 IDNow [facility] SARS-CoV-2, RNA, NAAT NEGATIVE (NEGATIVE) Administered Medications Atorvastatin Calcium (Atorvastatin 20 Mg Tab) 20 mg PO QAM STEVE Stop: 07/29/20 08:59 Last Admin: 06/29/20 09:07 Dose: 20 mg Documented by: [id number] Escitalopram Oxalate (Escitalopram Oxalate 10 Mg Tab) 5 mg PO DAILY STEVE Stop: 07/29/20 08:59 Last Admin: 06/29/20 09:07 Dose: 5 mg Documented by: [id number] Pantoprazole Sodium (Pantoprazole 40 Mg Tab) 40 mg PO DAILY STEVE Stop: 07/29/20 08:59 Last Admin: 06/29/20 09:07 Dose: 40 mg Documented by: [id number] Discontinued Medications Sodium Chloride (Nss) 500 mls @ 999 mls/hr IV .Q31M ONE Stop: 06/29/20 02:37 Last Infusion: 06/29/20 03:14 Dose: 0 mls/hr Documented by: [id number] Admin: 06/29/20 02:17 Dose: 999 mls/hr Documented by: [id number] Sodium Chloride (Nss) 500 mls @ 999 mls/hr IV .Q31M ONE Stop: 06/29/20 03:48 Last Infusion: 06/29/20 03:52 Dose: 0 mls/hr Documented by: [id number] Admin: 06/29/20 03:20 Dose: 999 mls/hr Documented by: [id number] Levofloxacin/Dextrose (Levaquin/D5w) 750 mg in 150 mls @ 100 mls/hr IV NOW STA Stop: 06/29/20 04:51 Last Infusion: 06/29/20 04:49 Dose: 0 mls/hr Documented by: [id number] Admin: 06/29/20 03:32 Dose: 100 mls/hr Documented by: [id number] Cefepime HCl (Maxipime) 2,000 mg in 20 mls @ 5 mls/min IV NOW STA; Protocol Stop: 06/29/20 04:11 Last Admin: 06/29/20 04:44 Dose: 5 mls/min Documented by: [id number] Sodium Chloride (1/2 Nss) 1,000 mls @ 50 mls/hr IV .Q20H STEVE Stop: 06/30/20 00:44 Last Admin: 06/29/20 04:54 Dose: 50 mls/hr Documented by: [id number] Discharge Plan Visit Data Chief Complaint: Hypotension Stated Complaint: LETHARGIC/ALTERED MENTAL STATUS ED Provider: Mari Harrison Discharge Problem: Acute hypotension, Acute UTI Patient Disposition: Admitted As Inpatient Discharge Instructions Interventions: ED Discharge Assessment Last Done: 06/29/20 05:12
[2020-06-29] MEDS ORDERED: CEFEPIME 2,000 MG/20 ML VIAL IV STA (04:08)
--- NOTE | 2020-06-29 04:08 | History & Physical Report ---
Date of Service June 29, 2020 Assessment & Plan (1) Encephalopathy: Patient currently mentating well after initial intervention at the ER. 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 It may contain grammatical or spelling errors. Kindly contact undersigned for clarification of any documentation item in question. History of Present Illness Chief Complaint: Weakness, UTI, altered mental status as per records Primary Care Provider: Reid Young MD History obtained from patient and records. 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 Last confinement 2014 under Orthopedics service for right hip surgery. 1 week history of urinary frequency and dysuria with back pain symptoms. No hematuria symptoms. No fever, no chills. No chest pain, no S OB, no cough symptoms. No headache symptoms. PCP office ordered UA. Bactrim prescribed outpatient. Increasing generalized weakness. Patient unable to get up from the toilet. EMS summoned by patient's spouse. Patient found to be hypotensive at the ER. SBP 90s to 100s upon arrival at the ER. Levaquin given for UTI. Medical History as above Surgical History : Lymph node biopsy, VPS shunt placement, ankle surgery, vascular device placement, cataract surgery, BTL, cholecystectomy, hip replacement Family History : Breast cancer, multiple myeloma, AAA, heart disease, stroke, DM Personal/Social history : Past tobacco abuse, occasional EtOH intake, retired manager military Allergies Allergy/AdvReac Type Severity Reaction Status Date / Time Penicillins Allergy Severe Anaphylaxis Verified 06/29/20 01:38 pollen extracts Allergy Intermediate ITCHY Verified 06/29/20 01:38 EYES, SNEEZING, CONGESTION BASE METALS Allergy Mild Rash Uncoded 06/29/20 01:38 Home Medications Medication Instructions Recorded Confirmed Type atorvastatin 20 mg PO QAM 11/10/18 06/29/20 History ibuprofen 200 - 600 mg PO Q6H PRN 11/10/18 06/29/20 History lisinopril 2.5 mg PO QAM 11/10/18 06/29/20 History metoprolol succinate 12.5 mg PO QAM 11/10/18 06/29/20 History escitalopram oxalate 5 mg PO DAILY 12/05/19 06/29/20 History gabapentin 100 mg PO BID 12/05/19 06/29/20 History pantoprazole 40 mg PO DAILY 12/05/19 06/29/20 History sulfamethoxazole-trimethoprim 1 tab PO BID 06/29/20 06/29/20 History Past Med/Surg History Medical History (Updated 06/29/20 @ 04:41 by Rl Hodgson MD) Brain tumor Esophageal reflux Large cell lymphoma, lymph nodes of head, face, and neck Lymphoma in remission Surgical History S/P hip replacement Family History Other Cancer Heart disease Social History Smoking Status: Former smoker Tobacco Type: Cigarettes Hx Alcohol Use: No Hx Substance Use: No Preferred Language: Namibian Communication Ability: Effective Marine Structural Designer Required: No Beliefs That Will Affect Care: None marital status: Current Living Situation: Spouse current occupational status: retired Feels Safe at Home: Yes Safety Concerns: Feels Safe At This Time Assistive Devices: Cane, Denture - Lower and Glasses Review of Systems Review of Systems: As per HPI, all 10 systems reviewed, all other ROS negative Physical Exam Physical Exam: GENERAL: Slightly uncomfortable, morbidly obese, coherent, no respiratory distress SKIN: Pallor , warm HEENT: Sparse hair, pale palpebral conjunctivae, no ptosis, dry buccal mucosa NECK : Supple, short neck, no tenderness CHEST : CTA, no tenderness HEART : Diminished S1-S2 , no obvious murmurs ABDOMEN: Some distention, nontender EXTREMITIES : Minimal LE swelling, no LE tenderness, no other conspicuous deformities noted NEUROLOGIC : Coherent, no facial asymmetry, no other gross focality Results & Data Results & Data ([facility]) Vital Signs (Past 12 Hours) Vital Signs Temp Pulse Pulse Resp BP BP Pulse Ox 06/29/20 03:38 67 20 118/48 L 97 06/29/20 03:14 72 20 94/46 L 98 06/29/20 02:17 70 20 96/51 L 98 06/29/20 01:41 69 69 20 98/68 L 98 06/29/20 01:10 36.5 C 69 69 16 103/64 103/64 97 Laboratory Results Laboratory Results WBC 8.29 K/uL (4.8-10.8) 06/29/20 01:56 RBC 3.60 M/uL (4.2-5.4) L 06/29/20 01:56 Hgb 11.6 g/dL (12.0-16.0) L 06/29/20 01:56 Hct 36.0 % (37-47) L 06/29/20 01:56 MCV 100.0 fL (80-100) 06/29/20 01:56 MCH 32.2 pg (25-34) 06/29/20 01:56 MCHC 32.2 g/dL (32-36) 06/29/20 01:56 RDW Std Deviation 48.3 fL (36.4-46.3) H 06/29/20 01:56 RDW Coeff of Lizette 13.2 % (11.5-14.5) 06/29/20 01:56 Plt Count 203 K/uL (130-400) 06/29/20 01:56 MPV 10.6 fL (7.4-10.4) H 06/29/20 01:56 Immature Gran % (Auto) 0.2 % 06/29/20 01:56 Neut % (Auto) 77.5 % 06/29/20 01:56 Lymph % (Auto) 10.9 % 06/29/20 01:56 [place] % (Auto) 10.6 % 06/29/20 01:56 Eos % (Auto) 0.7 % 06/29/20 01:56 Baso % (Auto) 0.1 % 06/29/20 01:56 Neut # (Auto) 6.42 K/uL (1.4-6.5) 06/29/20 01:56 Lymph # (Auto) 0.90 K/uL (1.2-3.4) L 06/29/20 01:56 [place] # (Auto) 0.88 K/uL (0.11-0.59) H 06/29/20 01:56 Eos # (Auto) 0.06 K/uL (0-0.5) 06/29/20 01:56 Baso # (Auto) 0.01 K/uL (0-0.2) 06/29/20 01:56 Immature Gran # (Auto) 0.02 K/uL (0.00-0.02) 06/29/20 01:56 PT 9.9 Seconds (9.0-12.0) 06/29/20 01:56 INR 0.9 (0.9-1.1) 06/29/20 01:56 APTT 22.9 Seconds (21.0-31.0) 06/29/20 01:56 PTT Ratio 0.8 06/29/20 01:56 Sodium 143 mmol/L (136-145) 06/29/20 01:56 Potassium 4.3 mmol/L (3.5-5.1) 06/29/20 01:56 Chloride 112 mmol/L (98-107) H 06/29/20 01:56 Carbon Dioxide 30 mmol/L (21-32) 06/29/20 01:56 Anion Gap 1.0 (3-11) L 06/29/20 01:56 BUN 24 mg/dl (7-18) H 06/29/20 01:56 Creatinine 1.29 mg/dl (0.6-1.2) H 06/29/20 01:56 Est Cr Clr Drug Dosing 40.0 ml/min 06/29/20 01:56 Est GFR ( Amer) 47.2 06/29/20 01:56 Est GFR (Non-Af Amer) 40.8 06/29/20 01:56 BUN/Creatinine Ratio 18.6 (10-20) 06/29/20 01:56 Glucose 101 mg/dl (70-99) H 06/29/20 01:56 Lactate 2.1 mmol/L (0.4-2.0) H* 06/29/20 02:06 Calcium 8.2 mg/dl (8.5-10.1) L 06/29/20 01:56 Magnesium 2.4 mg/dl (1.8-2.4) 06/29/20 01:56 Total Bilirubin 0.2 mg/dl (0.2-1) 06/29/20 01:56 AST 14 U/L (15-37) L 06/29/20 01:56 ALT 15 U/L (12-78) 06/29/20 01:56 Alkaline Phosphatase 134 U/L (45-117) H 06/29/20 01:56 Total Protein 6.6 gm/dl (6.4-8.2) 06/29/20 01:56 Albumin 2.7 gm/dl (3.4-5.0) L 06/29/20 01:56 Globulin 3.9 gm/dl (2.5-4.0) 06/29/20 01:56 Albumin/Globulin Ratio 0.7 (0.9-2) L 06/29/20 01:56 TSH 3.160 uIu/ml (0.300-4.500) 06/29/20 01:56 Urine Color Yellow 06/29/20 Unknown Urine Appearance Turbid (Clear) A 06/29/20 Unknown Urine pH 5.5 (4.5-7.5) 06/29/20 Unknown Ur Specific [place] 1.020 (1.000-1.030) 06/29/20 Unknown Urine Protein 1+ (Negative) H 06/29/20 Unknown Urine Glucose (UA) Negative (Negative) 06/29/20 Unknown Urine Ketones Negative (Negative) 06/29/20 Unknown Urine Blood 2+ (Negative) H 06/29/20 Unknown Urine Nitrite Positive (Negative) A 06/29/20 Unknown Urine Bilirubin Negative (Negative) 06/29/20 Unknown Urine Urobilinogen Negative (Negative) 06/29/20 Unknown Ur Leukocyte Esterase 3+ (Negative) H 06/29/20 Unknown Urine WBC (Auto) >30 /hpf (0-5) H 06/29/20 Unknown Urine RBC (Auto) 10-30 /hpf (0-4) H 06/29/20 Unknown U Hyaline Cast (Auto) 0 /lpf (0-5) 06/29/20 Unknown U Epithel Cells (Auto) >30 /lpf (0-5) H 06/29/20 Unknown Urine Bacteria (Auto) 1+ (Negative) H 06/29/20 Unknown Urine Yeast Not Reportable 06/29/20 Unknown COVID-19 Eval Order Covid19 IDNow [facility] 06/29/20 03:[address] head initial read: No intracranial hemorrhage or mass-effect, advanced white matter changes most pronounced in the frontal lobes. PMS and mastoid air cells are clear. No fracture. CT abdomen pelvis initial read: No acute abnormality along GI tract. Normal appendix. Status post cholecystectomy. Grossly unremarkable liver pancreas spleen. Extrarenal pelvis in the kidneys. No free fluid or free air. Chest x-ray as per my interpretation elevated right hemidiaphragm EKG as per my interpretation : Rate 70, NSR, LAD, LAFB, LBBB
[2020-06-29] MEDS ORDERED: SODIUM CHLORIDE 0.45 % 1,000 ML IV SCH (04:45)
[2020-06-29 04:56] LABS: Troponin I < 0.015 ng/ml (0-0.045)
[2020-06-29] MEDS ORDERED: ACETAMINOPHEN 325 MG TAB PO PRN (05:51)
[2020-06-29] MEDS ORDERED: CEFEPIME CONSULT ACTIVE PRN (05:51)
[2020-06-29] MEDS ORDERED: oxyCODONE HCL IR 5 MG TAB (IMMEDIATE RELEASE) PO PRN (05:51)
[2020-06-29] MEDS ORDERED: PROMETHAZINE HCL 12.5 MG in SODIUM CHLORIDE 0.9% 50 ML IV PRN (05:51)
--- NOTE | 2020-06-29 07:36 | CT Scan Report ---
CT OF THE HEAD WITHOUT CONTRAST CLINICAL HISTORY: ams, hx brain tumor COMPARISON STUDY: Head CT December 05, 2019. MRI of the brain May 15, 2019. CT DOSE: 2609.59 mGy.cm TECHNIQUE: Helical axial images of the head were obtained without IV contrast. Automated exposure con trol was utilized for the study. A dose lowering technique was utilized adhering to the principles o f ALARA. FINDINGS: No acute intracranial hemorrhage, midline shift or mass effect is present. Ventricular syst em is stable. Basilar cisterns are patent. There are no extra-axial collections. Extensive white remi er hypodensities are unchanged. There are no findings to suggest acute dural sinus thrombosis or acut e territorial infarct. No calvarial fracture is present. [place] holes are again noted. IMPRESSION: No acute intracranial findings. No change in appearance of the brain with extensive white matter hypo densities which may reflect posttreatment change. ACT 112: Negative or not required by law. Electronically signed by: Rancho Bauer M.D. 06/29/2020 7:34 AM
--- NOTE | 2020-06-29 07:49 | CT Scan Report ---
CT OF THE ABDOMEN AND PELVIS WITHOUT CONTRAST CLINICAL HISTORY: back pain, uti COMPARISON STUDY: CT of the abdomen and pelvis November 10, 2018. TECHNIQUE: Axial images of the abdomen and pelvis were obtained without IV contrast. Images were revi ewed in the axial, sagittal, and coronal planes. Automated exposure control was utilized for the joshua dy. A dose lowering technique was utilized adhering to the principles of ALARA. FINDINGS: Lung bases are unremarkable. No pneumatosis, free air or portal venous gas is present. No r enal, ureteral or bladder calculi are identified although evaluation of the distal ureters is subopti mal given streak artifact from right hip arthroplasty. Right collecting system dilatation is similar to CT of November 10, 2018. Note is made of hypodensities within the left renal sinus which could reflect collecting system dilatation or parapelvic cysts. This is similar to prior exam as well. Unenhanced images of liver, spleen, adrenal glands and pancreas are unremarkable. There is no biliary ductal dil atation status post cholecystectomy. There is no evidence for a bowel obstruction. Avascular necrosis of the left femoral head is noted. No acute fracture is noted within visualized skeletal structures. IMPRESSION: 1. No urinary calculi. No change in right collecting system dilatation since prior CT. This suggests a UPJ type obstruction. Hypodensities within the left renal sinus could reflect parapelvic cysts or c ollecting system dilatation. 2. No bowel obstruction. No bowel wall thickening on unenhanced examination. 3. Avascular necrosis of the left femoral head. ACT 112: Negative or not required by law. Electronically signed by: Rancho Bauer M.D. 06/29/2020 7:47 AM
--- NOTE | 2020-06-29 08:05 | XRay Report ---
XR chest 1V portable CLINICAL HISTORY: Renal failure. COMPARISON STUDY: Chest radiograph May 13, 2019. FINDINGS: Lung volumes are normal. Lungs are clear. There is no pneumothorax or pleural effusion. Car diac size is normal. Mediastinal contours are normal. There is no evidence for pulmonary edema. Incid ental note is made of cholecystectomy clips. IMPRESSION: No acute cardiopulmonary findings. ACT 112: Negative or not required by law. Electronically signed by: Rancho Bauer M.D. 06/29/2020 8:03 AM
[2020-06-29] MEDS: PANTOprazole 40 MG TAB PO SCH (09:07)
[2020-06-29] MEDS: ATORVASTATIN 20 MG TAB PO SCH (09:07)
[2020-06-29] MEDS: ESCITALOPRAM OXALATE 10 MG TAB PO SCH (09:07)
--- NOTE | 2020-06-29 12:35 | Electrocardiogram Report ---
Test Reason : Blood Pressure : / mmHG Vent. Rate : 069 BPM Atrial Rate : 069 BPM P-R Int : 200 ms QRS Dur : 126 ms QT Int : 476 ms P-R-T Axes : 071 -25 142 degrees QTc Int : 510 ms Poor data quality, interpretation may be adversely affected Normal sinus rhythm Left bundle branch block Abnormal ECG When compared with ECG of 05-DEC-2019 13:47, No significant change was found Confirmed by Bobby Scott ([id number]) on 06/29/2020 12:35:17 PM Referred By: REFERRED SELF Confirmed By:Bobby Scott
--- NOTE | 2020-06-29 13:14 | Hospitalist Progress Note ---
Date of Service June 29, 2020 Assessment & Plan (1) Encephalopathy: Metabolic encephalopathy likely secondary to Multifactorial : Complicated UTI, possible sepsis ARF, hypotension Home neuropsychotropic meds contributory --Patient today awake, alert, oriented x3 Afebrile, no leukocytosis, lactic acidosis resolved --CT head:No acute intracranial findings. No change in appearance of the brain with extensive white matter hypodensities which may reflect posttreatment change. 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 Full code Admission and Anticipated Discharge Date Admission Date: June 29, 2020 Subjective Follow-up for encephalopathy, UTI, etc. Pain sitting up in chair, just had lunch, awake and alert, oriented x2, answers all questions appropriately States she feels fine overall Denies headache, fevers chills, nausea vomiting, abdominal pain or flank pain or back pain, denies urinary symptoms No chest pain, shortness of breath or palpitations, dizziness No other symptoms Review of Systems Review of Systems: All systems reviewed & are unremarkable except as noted in Subjective Physical Exam Physical Exam: General- oriented x 3, not in distress, speaks in sentences with no effort or accessory muscle use Head- atraumatic Positive alopecia Eyes- PERRL, EOMI, anicteric ENT- oropharynx clear Neck- supple, no JVD, no adenopathy, no thyromegaly; carotids +2/2, no bruits appreciated Lungs- clear to auscultation bilaterally, no rales/wheezes Heart- normal rate, regular rhythm; no murmur, no gallop, no rub appreciated Abdomen- normal bowel sounds, nondistended, soft, nontender, no masses or hepatosplenomegaly Extremities- no pretibial edema, no calf tenderness; peripheral pulses intact Neuro- alert, oriented x 3; CN 2-12 grossly intact; motor 5/5 bilaterally;sensation 100% on all extremities; no other gross focal neurologic deficits Skin- warm & dry Results & Data Results & Data ([facility]) Vital Signs (Past 12 Hours) Vital Signs Temp Pulse Pulse Resp BP BP BP 06/29/20 11:00 36.7 C 89 18 107/67 06/29/20 08:00 69 06/29/20 07:47 36.9 C 70 20 121/77 06/29/20 06:15 73 06/29/20 05:24 36.9 C 72 16 115/82 06/29/20 04:48 75 20 103/67 06/29/20 03:38 67 20 118/48 L 06/29/20 03:14 72 20 94/46 L 06/29/20 02:17 70 20 96/51 L 06/29/20 01:41 69 69 20 98/68 L 06/29/20 01:10 36.5 C 69 69 16 103/64 103/64 Pulse Ox 06/29/20 11:00 94 06/29/20 08:00 06/29/20 07:47 96 06/29/20 06:15 06/29/20 05:24 95 06/29/20 04:48 96 06/29/20 03:38 97 06/29/20 03:14 98 06/29/20 02:17 98 06/29/20 01:41 98 06/29/20 01:10 97 Laboratory Results Laboratory Results - last 24 hr 06/29/20 06/29/20 06/29/20 01:56 01:56 01:56 WBC 8.29 RBC 3.60 L Hgb 11.6 L Hct 36.0 L MCV 100.0 MCH 32.2 MCHC 32.2 RDW Std Deviation 48.3 H RDW Coeff of Lizette 13.2 Plt Count 203 MPV 10.6 H Immature Gran % (Auto) 0.2 Neut % (Auto) 77.5 Lymph % (Auto) 10.9 [place] % (Auto) 10.6 Eos % (Auto) 0.7 Baso % (Auto) 0.1 Neut # (Auto) 6.42 Lymph # (Auto) 0.90 L [place] # (Auto) 0.88 H Eos # (Auto) 0.06 Baso # (Auto) 0.01 Immature Gran # (Auto) 0.02 PT 9.9 INR 0.9 APTT 22.9 PTT Ratio 0.8 Sodium 143 Potassium 4.3 Chloride 112 H Carbon Dioxide 30 Anion Gap 1.0 L BUN 24 H Creatinine 1.29 H Est Cr Clr Drug Dosing 40.0 Est GFR ( Amer) 47.2 Est GFR (Non-Af Amer) 40.8 BUN/Creatinine Ratio 18.6 Glucose 101 H Lactate Calcium 8.2 L Magnesium 2.4 Total Bilirubin 0.2 AST 14 L ALT 15 Alkaline Phosphatase 134 H Troponin I < 0.015 Total Protein 6.6 Albumin 2.7 L Globulin 3.9 Albumin/Globulin Ratio 0.7 L TSH 3.160 Urine Color Urine Appearance Urine pH Ur Specific [place] Urine Protein Urine Glucose (UA) Urine Ketones Urine Blood Urine Nitrite Urine Bilirubin Urine Urobilinogen Ur Leukocyte Esterase Urine WBC (Auto) Urine RBC (Auto) U Hyaline Cast (Auto) U Epithel Cells (Auto) Urine Bacteria (Auto) Urine Yeast COVID-19 Eval Order SARS-CoV-2, RNA, NAAT 06/29/20 06/29/20 06/29/20 02:06 03:58 03:58 WBC RBC Hgb Hct MCV MCH MCHC RDW Std Deviation RDW Coeff of Lizette Plt Count MPV Immature Gran % (Auto) Neut % (Auto) Lymph % (Auto) [place] % (Auto) Eos % (Auto) Baso % (Auto) Neut # (Auto) Lymph # (Auto) [place] # (Auto) Eos # (Auto) Baso # (Auto) Immature Gran # (Auto) PT INR APTT PTT Ratio Sodium Potassium Chloride Carbon Dioxide Anion Gap BUN Creatinine Est Cr Clr Drug Dosing Est GFR ( Amer) Est GFR (Non-Af Amer) BUN/Creatinine Ratio Glucose Lactate 2.1 H* Calcium Magnesium Total Bilirubin AST ALT Alkaline Phosphatase Troponin I Total Protein Albumin Globulin Albumin/Globulin Ratio TSH Urine Color Urine Appearance Urine pH Ur Specific [place] Urine Protein Urine Glucose (UA) Urine Ketones Urine Blood Urine Nitrite Urine Bilirubin Urine Urobilinogen Ur Leukocyte Esterase Urine WBC (Auto) Urine RBC (Auto) U Hyaline Cast (Auto) U Epithel Cells (Auto) Urine Bacteria (Auto) Urine Yeast COVID-19 Eval Order Covid19 IDNow [facility] SARS-CoV-2, RNA, NAAT NEGATIVE 06/29/20 06/29/20 05:03 Unknown WBC RBC Hgb Hct MCV MCH MCHC RDW Std Deviation RDW Coeff of Lizette Plt Count MPV Immature Gran % (Auto) Neut % (Auto) Lymph % (Auto) [place] % (Auto) Eos % (Auto) Baso % (Auto) Neut # (Auto) Lymph # (Auto) [place] # (Auto) Eos # (Auto) Baso # (Auto) Immature Gran # (Auto) PT INR APTT PTT Ratio Sodium Potassium Chloride Carbon Dioxide Anion Gap BUN Creatinine Est Cr Clr Drug Dosing Est GFR ( Amer) Est GFR (Non-Af Amer) BUN/Creatinine Ratio Glucose Lactate 1.6 Calcium Magnesium Total Bilirubin AST ALT Alkaline Phosphatase Troponin I Total Protein Albumin Globulin Albumin/Globulin Ratio TSH Urine Color Yellow Urine Appearance Turbid A Urine pH 5.5 Ur Specific [place] 1.020 Urine Protein 1+ H Urine Glucose (UA) Negative Urine Ketones Negative Urine Blood 2+ H Urine Nitrite Positive A Urine Bilirubin Negative Urine Urobilinogen Negative Ur Leukocyte Esterase 3+ H Urine WBC (Auto) >30 H Urine RBC (Auto) 10-30 H U Hyaline Cast (Auto) 0 U Epithel Cells (Auto) >30 H Urine Bacteria (Auto) 1+ H Urine Yeast Not Reportable COVID-19 Eval Order SARS-CoV-2, RNA, NAAT
[2020-06-30] MEDS: CEFEPIME 2,000 MG in SYRINGE 0 ML IV SCH (05:35)
[2020-06-30 06:59] LABS: Basophils # (auto) 0.01 K/uL (0-0.2); Basophils % (auto) 0.2 %; Eosinophils # (auto) 0.18 K/uL (0-0.5); Eosinophils % (auto) 3.3 %; Hematocrit (blood only) 32.4 % (37-47); Hemoglobin 10.3 g/dL (12.0-16.0); Lymphocytes # (auto) 0.95 K/uL (1.2-3.4); Lymphocytes % (auto) 17.5 %; Mean Corpuscular Hemoglobin 31.4 pg (25-34); Mean Corpuscular Hgb Conc 31.8 g/dL (32-36); Mean Corpuscular Volume 98.8 fL (80-100); Mean Platelet Volume 10.3 fL (7.4-10.4); Monocytes # (auto) 0.62 K/uL (0.11-0.59); Monocytes % (auto) 11.4 %; Neutrophils # (auto) 3.66 K/uL (1.4-6.5); Neutrophils % (auto) 67.6 %; Platelet Count 172 K/uL (130-400); RDW Coefficient of Variation 13.4 % (11.5-14.5); RDW Standard Deviation 48.2 fL (36.4-46.3); Red Blood Count 3.28 M/uL (4.2-5.4); White Blood Count 5.42 K/uL (4.8-10.8)
[2020-06-30 07:27] LABS: Calcium 8.7 mg/dl (8.5-10.1); Creatinine Clr Calc Pharmacy 41.6 ml/min; Est GFR (Non-African American) 43.2; Potassium 4.5 mmol/L (3.5-5.1)
[2020-06-30] MEDS: ESCITALOPRAM OXALATE 10 MG TAB PO SCH (08:42)
[2020-06-30] MEDS: ATORVASTATIN 20 MG TAB PO SCH (08:43)
[2020-06-30] MEDS: PANTOprazole 40 MG TAB PO SCH (08:43)
[2020-06-30] MEDS: METOPROLOL SUCC 25MG EXT REL TAB PO SCH (08:44)
--- NOTE | 2020-06-30 13:32 | Hospitalist Progress Note ---
Date of Service June 30, 2020 Assessment & Plan (1) Encephalopathy: Metabolic encephalopathy likely secondary to Multifactorial : Complicated UTI, possible sepsis ARF, hypotension Home neuropsychotropic meds contributory --Patient awake, alert, oriented x3 Afebrile, no leukocytosis, lactic acidosis resolved --CT head:No acute intracranial findings. No change in appearance of the brain with extensive white matter hypodensities which may reflect posttreatment change. --Urine culture: Gram negative bacilli Blood cultures pending --Continue IV cefepime day #2 given gentle IV fluids --Monitor closely PT and OT evaluation Chronic systolic heart failure secondary to chemotherapy-induced cardiomyopathy (EF 37%, TTE 2018) --Patient on the dry side given gentle IV hydration -- now appears euvolemic Chronic LBBB Hypertension --Patient presented with low blood pressure --Hold lisinopril for now BP stable overall Hyperlipidemia on statin Rx Recurrent NHL with intracranial spread status post chemotherapy status post radiation, currently in remission Chronic anemia, hemoglobin at baseline Past tobacco abuse DVT prophylaxis. 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 Full code Disposition pending PT recommending d/c to Rehab Admission and Anticipated Discharge Date Admission Date: June 29, 2020 Subjective ff up for UTI, encephalopathy, etc seen resting in bed, comfortable oriented x 3 states she continues to feel improved still has some suprapubic discomfort and dysuria denies headache, nausea/vomiting, chills no chest pain, dyspnea, palpitations no other symptoms Review of Systems Review of Systems: All systems reviewed & are unremarkable except as noted in Subjective Physical Exam Physical Exam: General- oriented x 3, not in distress, speaks in sentences with no effort or accessory muscle use Eyes- anicteric Neck- no JVD Lungs- clear BS BL no crackles, no wheezing Heart- normal rate, regular rhythm; no murmurs Abdomen- normal bowel sounds, nondistended, soft, nontender no CVA tenderness Extremities- no pretibial edema, no calf tenderness Neuro- alert, oriented x 3; no gross focal neurologic deficits Skin- warm & dry Results & Data Results & Data ([facility]) Vital Signs (Past 12 Hours) Vital Signs Temp Pulse Pulse Resp BP Pulse Ox 06/30/20 11:45 36.7 C 67 20 128/69 90 06/30/20 07:36 36.7 C 61 20 137/78 95 02/01/21 07:33 58 L 06/30/20 04:18 36.6 C 63 20 110/73 96 06/30/20 02:18 63 Laboratory Results Laboratory Results - last 24 hr 06/30/20 06/30/20 06:29 06:29 WBC 5.42 RBC 3.28 L Hgb 10.3 L Hct 32.4 L MCV 98.8 MCH 31.4 MCHC 31.8 L RDW Std Deviation 48.2 H RDW Coeff of [place] 13.4 Plt Count 172 MPV 10.3 Immature Gran % (Auto) 0.0 Neut % (Auto) 67.6 Lymph % (Auto) 17.5 [place] % (Auto) 11.4 Eos % (Auto) 3.3 Baso % (Auto) 0.2 Neut # (Auto) 3.66 Lymph # (Auto) 0.95 L [place] # (Auto) 0.62 H Eos # (Auto) 0.18 Baso # (Auto) 0.01 Immature Gran # (Auto) 0.00 Sodium 142 Potassium 4.5 Chloride 111 H Carbon Dioxide 27 Anion Gap 3.0 BUN 18 Creatinine 1.23 H Est Cr Clr Drug Dosing 41.6 Est GFR ( Amer) 50.0 Est GFR (Non-Af Amer) 43.2 BUN/Creatinine Ratio 15.0 Glucose 96 Calcium 8.7
[2020-07-01] MEDS: CEFEPIME 2,000 MG in SYRINGE 0 ML IV SCH (05:46)
[2020-07-01] MEDS: PANTOprazole 40 MG TAB PO SCH (07:34)
[2020-07-01] MEDS: ATORVASTATIN 20 MG TAB PO SCH (07:34)
[2020-07-01] MEDS: METOPROLOL SUCC 25MG EXT REL TAB PO SCH (07:34)
[2020-07-01] MEDS: ESCITALOPRAM OXALATE 10 MG TAB PO SCH (07:34)
--- NOTE | 2020-07-01 12:35 | Hospitalist Progress Note ---
Date of Service July 01, 2020 Assessment & Plan (1) Encephalopathy: Metabolic encephalopathy likely secondary to Multifactorial : Complicated UTI, possible sepsis ARF, hypotension Home neuropsychotropic meds contributory --Patient awake, alert, oriented x3 Afebrile, no leukocytosis, lactic acidosis resolved --CT head:No acute intracranial findings. No change in appearance of the brain with extensive white matter hypodensities which may reflect posttreatment change. 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 Full code Disposition transition to [facility] ff up with PCP in 1 week after discharge from Rehab Admission and Anticipated Discharge Date Admission Date: June 29, 2020 Subjective ff up for UTI seen resting in bed, comfortable oriented x 3, answers all questions appropriately states she feels fine overall no headache, dizziness, chest pain, dyspnea, abdominal pain, nausea/vomiting, abdominal pain no other symptoms states she is ready for discharge today Review of Systems Review of Systems: All systems reviewed & are unremarkable except as noted in Subjective Physical Exam Physical Exam: General- oriented x 3, not in distress, speaks in sentences with no effort or accessory muscle use Eyes- anicteric Neck- no JVD Lungs- clear breath sounds BL no rales/wheezing Heart- normal rate, regular rhythm; no murmurs Abdomen- normal bowel sounds, nondistended, soft, nontender Extremities- no pretibial edema, no calf tenderness Neuro- alert, oriented x 3; no gross focal neurologic deficits Skin- warm & dry Results & Data Results & Data ([facility]) Vital Signs (Past 12 Hours) Vital Signs Temp Pulse Resp BP BP Pulse Ox 07/01/20 11:36 36.6 C 59 L 18 142/81 H 95 07/01/20 07:28 36.6 C 52 L 16 122/58 L 95 07/01/20 03:19 37.0 C 59 L 18 120/63 96
[2020-07-01] MEDS ORDERED: lisinopril 2.5 MG TAB PO SCH (13:00)
--- NOTE | 2020-07-01 14:11 | Discharge Summary ---
Date of Service July 01, 2020 Admission HPI Per Admitting Provider History obtained from patient and records. Medical history significant for chronic systolic heart failure secondary to chemotherapy-induced cardiomyopathy (EF 37%, TTE 2018), chronic LBBB, HTN, hyperlipidemia, history recurrent NHL with intracranial spread status post chemotherapy status post radiation, recurrent UTIs, chronic anemia (baseline hemoglobin of 11), past tobacco abuse. Last confinement 2014 under Orthopedics service for right hip surgery. 1 week history of urinary frequency and dysuria with back pain symptoms. No hematuria symptoms. No fever, no chills. No chest pain, no S OB, no cough symptoms. No headache symptoms. PCP office ordered UA. Bactrim prescribed outpatient. Increasing generalized weakness. Patient unable to get up from the toilet. EMS summoned by patient's spouse. Patient found to be hypotensive at the ER. SBP 90s to 100s upon arrival at the ER. Levaquin given for UTI. Medical History as above Surgical History : Lymph node biopsy, VPS shunt placement, ankle surgery, vascular device placement, cataract surgery, BTL, cholecystectomy, hip replacement Family History : Breast cancer, multiple myeloma, AAA, heart disease, stroke, DM Personal/Social history : Past tobacco abuse, occasional EtOH intake, retired fast food attendant Admission Exam Per Admitting Provider GENERAL: Slightly uncomfortable, morbidly obese, coherent, no respiratory distress SKIN: Pallor , warm HEENT: Sparse hair, pale palpebral conjunctivae, no ptosis, dry buccal mucosa NECK : Supple, short neck, no tenderness CHEST : CTA, no tenderness HEART : Diminished S1-S2 , no obvious murmurs ABDOMEN: Some distention, nontender EXTREMITIES : Minimal LE swelling, no LE tenderness, no other conspicuous deformities noted NEUROLOGIC : Coherent, no facial asymmetry, no other gross focality Principal Diagnosis ENCEPHALOPATHY FROM E COLI URINARY TRACT INFECTION Discharge Exam General- oriented x 3, not in distress, speaks in sentences with no effort or accessory muscle use Eyes- anicteric Neck- no JVD Lungs- clear breath sounds BL no rales/wheezing Heart- normal rate, regular rhythm; no murmurs Abdomen- normal bowel sounds, nondistended, soft, nontender Extremities- no pretibial edema, no calf tenderness Neuro- alert, oriented x 3; no gross focal neurologic deficits Skin- warm & dry Discharge Data Allergies Allergy/AdvReac Type Severity Reaction Status Date / Time Penicillins Allergy Severe Anaphylaxis Verified 06/29/20 01:38 pollen extracts Allergy Intermediate ITCHY Verified 06/29/20 01:38 EYES, SNEEZING, CONGESTION BASE METALS Allergy Mild Rash Uncoded 06/29/20 01:38 Consultations 06/29/20 03:25 ED Decision to Admit Stat Ordered Studies 06/29/20 04:08 CT abd pelvis wo con [facility] COMPARISON STUDY: CT of the abdomen and pelvis November 10, 2018. TECHNIQUE: Axial images of the abdomen and pelvis were obtained without IV contrast. Images were reviewed in the axial, sagittal, and coronal planes. Automated exposure control was utilized for the study. A dose lowering technique was utilized adhering to the principles of ALARA. FINDINGS: Lung bases are unremarkable. No pneumatosis, free air or portal venous gas is present. No renal, ureteral or bladder calculi are identified although evaluation of the distal ureters is suboptimal given streak artifact from right hip arthroplasty. Right collecting system dilatation is similar to CT of November 10, 2018. Note is made of hypodensities within the left renal sinus which could reflect collecting system dilatation or parapelvic cysts. This is similar to prior exam as well. Unenhanced images of liver, spleen, adrenal glands and pancreas are unremarkable. There is no biliary ductal dilatation status post cholecystectomy. There is no evidence for a bowel obstruction. Avascular necrosis of the left femoral head is noted. No acute fracture is noted within visualized skeletal structures. IMPRESSION: 1. No urinary calculi. No change in right collecting system dilatation since prior CT. This suggests a UPJ type obstruction. Hypodensities within the left renal sinus could reflect parapelvic cysts or collecting system dilatation. 2. No bowel obstruction. No bowel wall thickening on unenhanced examination. 3. Avascular necrosis of the left femoral head. CT head/brain wo con [facility] FINDINGS: No acute intracranial hemorrhage, midline shift or mass effect is present. Ventricular system is stable. Basilar cisterns are patent. There are no extra-axial collections. Extensive white matter hypodensities are unchanged. There are no findings to suggest acute dural sinus thrombosis or acute territorial infarct. No calvarial fracture is present. Dewey holes are again noted. IMPRESSION: No acute intracranial findings. No change in appearance of the brain with extensive white matter hypodensities which may reflect posttreatment change. Hospital Course (1) Encephalopathy: Metabolic encephalopathy likely secondary to Complicated UTI, possible sepsis --Patient awake, alert, oriented x3 Afebrile, no leukocytosis, lactic acidosis resolved --CT head:No acute intracranial findings. No change in appearance of the brain with extensive white matter hypodensities which may reflect posttreatment change. 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 Full code Disposition transition to [facility] ff up with PCP in 1 week after discharge from Rehab Total Time Total Time Spent Total Time Spent (In Minutes): 45 minutes Discharge Plan Discharge Items Patient Disposition: Transfer Inpatient Rehab Fac Reason For Visit: TRANSIENT HYPOTENSION, COMP UTI Discharge Diagnosis: ENCEPHALPATHY SERCONDARY TO E COLI UTI Activity: Resume your previous activity Activity Comment: FALL PRECAUTIONS Non-emergency contact: Primary Care Provider Call non-emergency contact if: you have any medication questions, your symptoms worsen, your pain is not controlled, your pain is worsening, your pain is unusual for you, your pain is concerning for you and you have a fever Follow-up/Referrals: Reid Young MD [Primary Care Provider] - Diet: Heart Healthy Addtl Attending Provider Instructions: PLEASE REFER TO [facility] DISCHARGE SUMMARY. Pending Studies at Discharge: No Stand-Alone Forms: [facility] Skilled Items Patient informed of condition?: Yes DNR: No Discharge Level of Care: Acute rehab Communicable Disease: No Discharge Prognosis: Stable Lines: None Urinary Catheter: No Medications and DC Order Prescriptions: New cefdinir 300 mg Capsule 300 mg PO BID Qty: 10 RF: 0 Continued atorvastatin 20 mg tablet 20 mg PO QAM RF: 0 metoprolol succinate 25 mg tablet extended release 24 hr 12.5 mg PO QAM RF: 0 lisinopril 2.5 mg tablet 2.5 mg PO QAM RF: 0 pantoprazole 40 mg Tablet,Delayed Release (Dr/Ec) 40 mg PO DAILY RF: 0 gabapentin 100 mg Capsule 100 mg PO BID RF: 0 escitalopram oxalate 5 mg Tablet 5 mg PO DAILY RF: 0 Discontinued ibuprofen 200 mg Tablet 200 - 600 mg PO Q6H PRN (Reason: Pain) RF: 0 sulfamethoxazole-trimethoprim 800-160 mg tablet 1 tab PO BID RF: 0 Discharge Orders: Discharge Order (Routine); Ordered 07/01/20 Ordered By: Terry Shah Admission Data Admit Date/Time: 06/29/20 04:35 Attending Provider: Terry Shah Admit Provider: Rl Hodgson Primary Care Provider: Reid Young Other Providers: Rl Hodgson ; [facility] Other Interventions: Discharge Summary Assessment (RN) Last Done: 07/01/20 13:07
--- NOTE | 2020-07-01 15:57 | Hospitalist Progress Note ---
Date of Service July 01, 2020 Assessment & Plan (1) Encephalopathy: Metabolic encephalopathy likely secondary to Complicated UTI, possible sepsis --Patient awake, alert, oriented x3 Afebrile, no leukocytosis, lactic acidosis resolved --CT head:No acute intracranial findings. No change in appearance of the brain with extensive white matter hypodensities which may reflect posttreatment change. 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
[2020-07-01] MEDS ORDERED: CEFDINIR 300 MG CAP PO SCH (21:00)
== END 2020-07-01 16:09 | DRG 871 ==
LOC: ED 00:57 → 2N 04:35 → 2W 07-01 02:26

== ENCOUNTER 2020-10-23 12:10 | Inpatient (IN) ==
--- NOTE | 2020-10-23 13:19 | XRay Report ---
XR chest 1V portable CLINICAL HISTORY: weakness COMPARISON STUDY: 06/29/2020 FINDINGS: The cardiac and mediastinal contours are normal. There is no evidence of focal pulmonary co nsolidation. There is no evidence of failure. No pleural effusions are visualized.[Surgical clips pro ject over the left apex/base of the left neck. IMPRESSION: No active disease in the chest. ACT 112: Negative or not required by law. Electronically signed by: Domenico Dee M.D. 10/23/2020 1:17 PM
--- NOTE | 2020-10-23 13:30 | CT Scan Report ---
CT head/brain wo con CLINICAL HISTORY: Head pain status post trauma COMPARISON STUDY: 06/29/2020 TECHNIQUE: Axial CT of the brain is performed from the vertex to the skull base. IV contrast was not administered for this examination. A dose lowering technique was utilized adhering to the principles of ALARA. CT DOSE: 729.78 mGycm FINDINGS: No intra or extra-axial mass lesions are visualized. There is no CT evidence of acute cortical infarc tion. There is no evidence of midline shift. There is no acute hemorrhage. No calvarial fractures ar e visualized. There are extensive white matter hypodensities possibly secondary to post radiation change or other t reatment given the history of SCOUT LEASER lymphoma.. There is a right frontal desiree hole with an area of right frontal encephalomalacia unchanged from the prior study. There is a right posterior parietal desiree ho le. There is no evidence of pathologic ventricular dilatation. 9 due to IMPRESSION: No acute intracranial findings ACT 112: Negative or not required by law. Electronically signed by: Domenico Dee M.D. 10/23/2020 1:29 PM
--- NOTE | 2020-10-23 13:41 | Emergency Department Note ---
Impression & Plan COVID-19, Weakness, High serum chloride ED Provider Note NAME: SVETA NAVARRO AGE: 74 SEX: F : 1945 ARRIVES VIA: Ambulance INFORMANT: Patient ED PROVIDER(S): Reyes Preston DO CHIEF COMPLAINT: Weakness HPI: Patient is a 74-year-old female that presents to the ER for weakness. Office of aging has been following this family. The can long no longer take care on the . She is unable to get up and to go to the bathroom. She denies any headache or neck pain. No chest pain or shortness of breath. No nausea, vomiting, or diarrhea. She has had some delusions. ROS: See above HPI for pertinent positives & negatives. A total of 10 systems reviewed and were otherwise negative. PAST MEDICAL HISTORY:See Below PAST SURGICAL HISTORY:See Below FAMILY HISTORY:See Below SOCIAL HISTORY:See Below HOME MEDICATIONS:See Below ALLERGIES:See Below VITALS:See Below PHYSICAL EXAMINATION: GENERAL: Sitting up in bed, alert, well appearing, well nourished, no distress, non-toxic EYE EXAM: normal conjunctiva. OROPHARYNX: mucous membranes are dry NECK: supple, no nuchal rigidity, no adenopathy, non-tender LUNGS: Clear to auscultation. Normal chest wall mechanics HEART: no murmurs, S1 normal and S2 normal ABDOMEN: abdomen soft, non-tender, normo-active bowel sounds, no masses, no rebound or guarding. UPPER EXTREMITIES: upper extremities are grossly normal. LOWER EXTREMITIES: No pitting edema. NEURO EXAM: Oriented to person, place, year and month, cranial nerves II-XII intact, normal speech, no gross weakness of arms, no gross weakness of legs. MEDICAL DECISION MAKING: Patient is a 74-year-old female was brought in as the can no longer take care of her at home. IV was established blood work was obtained. Labs show no significant leukocytosis or anemia. INR unremarkable. BMP with a slightly e levated chloride. LFTs bilirubin was unremarkable. Magnesium slightly elevated. Troponin was negative. TSH was unremarkable. UA was negative. Covid was positive. CT head was negative. Patient was updated bedside. Unable to place currently due to the Covid positive per care management. Discussed with hospitalist Dr. Heard for further evaluation. Observation Status: Indication: Placement Patient with a family history of cancer, was seen first at 1210 hrs and was necessary in order to determine placement and avoid unnecessary admission. Upon reevaluation, 4 hours of observation revealed that the patient should be admitted. Disposition date and time 10/17 at 5 PM. Triage Nursing notes reviewed. Limited review of prior medical records performed Vital Signs: reviewed and remarkable for HTN Differential diagnosis: Infection, dehydration, metabolic abnormality, hypo/hyperglycemia, electrolyte disturbance, anemia, hypoxia, cardiac sources, intracerebral event, toxicologic, neurologic, as well as other pathologies. ER treatment provided: See below Diagnostics interpreted by me: ECG: none Cardiac Monitoring: An order was placed for continuous cardiac monitoring. The monitor shows a rate of 58 with sinus rhythm. Laboratory studies: As discussed below and above Consultation(s): CT head shows no acute pathology Portable AP upright 1 view of the chest was unremarkable Procedures: none Critical Care: None Past Med/Surg History Medical History (Updated 10/23/20 @ 17:15 by Reyes Preston DO) Brain tumor Esophageal reflux Large cell lymphoma, lymph nodes of head, face, and neck Lymphoma in remission Surgical History S/P hip replacement Family History Other Cancer Heart disease Social History Smoking Status: Never smoker Tobacco Type: Cigarettes Hx Alcohol Use: No Hx Substance Use: No Preferred Language: Tamazight Communication Ability: Effective Dental Treatment Coordinator Required: No Beliefs That Will Affect Care: None marital status: Current Living Situation: Spouse current occupational status: retired Feels Safe at Home: Yes Assistive Devices: Walker Allergies Allergies Allergy/AdvReac Type Severity Reaction Status Date / Time Penicillins Allergy Severe Anaphylaxis Verified 10/23/20 16:32 pollen extracts Allergy Intermediate ITCHY Verified 10/23/20 16:32 EYES, SNEEZING, CONGESTION BASE METALS Allergy Mild Rash Uncoded 10/23/20 16:32 Home Meds Home Medications Medication Instructions Recorded Confirmed atorvastatin 20 mg PO QAM 11/10/18 10/23/20 lisinopril 2.5 mg PO QAM 11/10/18 10/23/20 metoprolol succinate 12.5 mg PO QAM 11/10/18 10/23/20 escitalopram oxalate 5 mg PO DAILY 12/05/19 10/23/20 gabapentin 100 mg PO BID 12/05/19 10/23/20 pantoprazole 40 mg PO DAILY 12/05/19 10/23/20 Results & Data (ED) Vital Signs Vital Signs - 24 hr 10/23/20 12:18 10/23/20 14:00 10/23/20 14:30 Temperature 36.5 C Temperature Source Oral Pulse Rate 66 55 L 57 L Respiratory Rate 18 13 17 Blood Pressure 145/82 H 121/69 124/60 Blood Pressure Mean 103 86 81 Pulse Oximetry 97 95 95 Oxygen Delivery Method Room Air Sepsis Recent Fever Within 48 Hours No Sepsis New/Unexplained Change in Mental Status N/A Sepsis Action Taken by Nursing No Action Required Laboratory Data Result diagrams: 10/23/20 13:40 10/23/20 13:40 Lab Results 10/23/20 10/23/20 10/23/20 Range/Units 13:40 13:40 13:40 WBC 5.61 (4.8-10.8) K/uL RBC 3.75 L (4.2-5.4) M/uL Hgb 12.2 (12.0-16.0) g/dL Hct 37.5 (37-47) % MCV 100.0 (80-100) fL MCH 32.5 (25-34) pg MCHC 32.5 (32-36) g/dL RDW Std Deviation 53.0 H (36.4-46.3) fL RDW Coeff of Lizette 14.5 (11.5-14.5) % Plt Count 173 (130-400) K/uL MPV 10.7 H (7.4-10.4) fL Immature Gran % (Auto) 0.2 % Neut % (Auto) 63.4 % Lymph % (Auto) 24.6 % [place] % (Auto) 9.6 % Eos % (Auto) 2.0 % Baso % (Auto) 0.2 % Neut # (Auto) 3.56 (1.4-6.5) K/uL Lymph # (Auto) 1.38 (1.2-3.4) K/uL [place] # (Auto) 0.54 (0.11-0.59) K/uL Eos # (Auto) 0.11 (0-0.5) K/uL Baso # (Auto) 0.01 (0-0.2) K/uL Immature Gran # (Auto) 0.01 (0.00-0.02) K/uL PT 9.7 (9.0-12.0) Seconds INR 1.0 (0.9-1.1) Sodium 141 (136-145) mmol/L Potassium 4.0 (3.5-5.1) mmol/L Chloride 109 H (98-107) mmol/L Carbon Dioxide 28 (21-32) mmol/L Anion Gap 4.0 (3-11) BUN 23 H (7-18) mg/dl Creatinine 0.96 (0.6-1.2) mg/dl Est Cr Clr Drug Dosing 54.1 ml/min Est GFR ( Amer) 67.5 ml/min Est GFR (Non-Af Amer) 58.3 ml/min BUN/Creatinine Ratio 23.5 H (10-20) Glucose 88 (70-99) mg/dl Calcium 9.0 (8.5-10.1) mg/dl Magnesium 2.5 H (1.8-2.4) mg/dl Total Bilirubin 0.5 (0.2-1) mg/dl AST 13 L (15-37) U/L ALT 14 (12-78) U/L Alkaline Phosphatase 118 H (45-117) U/L Troponin I < 0.015 (0-0.045) ng/ml Total Protein 6.9 (6.4-8.2) gm/dl Albumin 3.2 L (3.4-5.0) gm/dl Globulin 3.7 (2.5-4.0) gm/dl Albumin/Globulin Ratio 0.9 (0.9-2) TSH 2.080 (0.300-4.500) uIu/ml Urine Color Urine Appearance (Clear) Urine pH (4.5-7.5) Ur Specific [place] (1.000-1.030) Urine Protein (Negative) Urine Glucose (UA) (Negative) Urine Ketones (Negative) Urine Blood (Negative) Urine Nitrite (Negative) Urine Bilirubin (Negative) Urine Urobilinogen (Negative) Ur Leukocyte Esterase (Negative) COVID-19 Eval Order SARS-CoV-2 (PCR) (Negative) 05/27/21 05/27/21 05/27/21 Range/Units 14:00 14:14 14:14 WBC (4.8-10.8) K/uL RBC (4.2-5.4) M/uL Hgb (12.0-16.0) g/dL Hct (37-47) % MCV (80-100) fL MCH (25-34) pg MCHC (32-36) g/dL RDW Std Deviation (36.4-46.3) fL RDW Coeff of Lizette (11.5-14.5) % Plt Count (130-400) K/uL MPV (7.4-10.4) fL Immature Gran % (Auto) % Neut % (Auto) % Lymph % (Auto) % [place] % (Auto) % Eos % (Auto) % Baso % (Auto) % Neut # (Auto) (1.4-6.5) K/uL Lymph # (Auto) (1.2-3.4) K/uL [place] # (Auto) (0.11-0.59) K/uL Eos # (Auto) (0-0.5) K/uL Baso # (Auto) (0-0.2) K/uL Immature Gran # (Auto) (0.00-0.02) K/uL PT (9.0-12.0) Seconds INR (0.9-1.1) Sodium (136-145) mmol/L Potassium (3.5-5.1) mmol/L Chloride (98-107) mmol/L Carbon Dioxide (21-32) mmol/L Anion Gap (3-11) BUN (7-18) mg/dl Creatinine (0.6-1.2) mg/dl Est Cr Clr Drug Dosing ml/min Est GFR ( Amer) ml/min Est GFR (Non-Af Amer) ml/min BUN/Creatinine Ratio (10-20) Glucose (70-99) mg/dl Calcium (8.5-10.1) mg/dl Magnesium (1.8-2.4) mg/dl Total Bilirubin (0.2-1) mg/dl AST (15-37) U/L ALT (12-78) U/L Alkaline Phosphatase (45-117) U/L Troponin I (0-0.045) ng/ml Total Protein (6.4-8.2) gm/dl Albumin (3.4-5.0) gm/dl Globulin (2.5-4.0) gm/dl Albumin/Globulin Ratio (0.9-2) TSH (0.300-4.500) uIu/ml Urine Color Yellow Urine Appearance Clear (Clear) Urine pH 7.0 (4.5-7.5) Ur Specific [place] 1.020 (1.000-1.030) Urine Protein Negative (Negative) Urine Glucose (UA) Negative (Negative) Urine Ketones Negative (Negative) Urine Blood Negative (Negative) Urine Nitrite Negative (Negative) Urine Bilirubin Negative (Negative) Urine Urobilinogen Negative (Negative) Ur Leukocyte Esterase Negative (Negative) COVID-19 Eval Order Covid19 at [facility] SARS-CoV-2 (PCR) POSITIVE A* (Negative) Imaging Data Radiologist's Impression: Chest X-Ray 10/23/20 12:58 XR chest 1V portable CLINICAL HISTORY: weakness COMPARISON STUDY: 06/29/2020 FINDINGS: The cardiac and mediastinal contours are normal. There is no evidence of focal pulmonary consolidation. There is no evidence of failure. No pleural effusions are visualized.[Surgical clips project over the left apex/base of the left neck. IMPRESSION: No active disease in the chest. ACT 112: Negative or not required by law. Electronically signed by: Domenico Dee M.D. 10/23/2020 1:[address] 10/23/20 13:03 CT head/brain wo con CLINICAL HISTORY: Head pain status post trauma COMPARISON STUDY: 06/29/2020 TECHNIQUE: Axial CT of the brain is performed from the vertex to the skull base. IV contrast was not administered for this examination. A dose lowering technique was utilized adhering to the principles of ALARA. CT DOSE: 729.78 mGycm FINDINGS: No intra or extra-axial mass lesions are visualized. There is no CT evidence of acute cortical infarction. There is no evidence of midline shift. There is no acute hemorrhage. No calvarial fractures are visualized. There are extensive white matter hypodensities possibly secondary to post radiation change or other treatment given the history of [employer] lymphoma.. There is a right frontal desiree hole with an area of right frontal encephalomalacia unchanged from the prior study. There is a right posterior parietal desiree hole. There is no evidence of pathologic ventricular dilatation. 9 due to IMPRESSION: No acute intracranial findings ACT 112: Negative or not required by law. Electronically signed by: Domenico Dee M.D. 10/23/2020 1:29 PM Chest X-Ray 10/23/20 13:48 XR chest 1V portable HISTORY: Respiratory distress c/w COVID-19 COMPARISON: Chest 10/23/2020. FINDINGS: The lungs are clear. Cardiac silhouette remains borderline enlarged. No pleural effusions. No pneumothorax. Left supraclavicular surgical clips are again noted. Prior cholecystectomy. IMPRESSION: Borderline cardiomegaly, unchanged. No new focal lung consolidations to suggest pneumonia. ACT 112: Negative or not required by law. Electronically signed by: Tarun Howard M.D. 10/23/2020 2:33 PM Discharge Plan Visit Data Chief Complaint: Weakness Stated Complaint: weakness/decline ED Provider: Reyes Preston Discharge Problem: COVID-19, Weakness, High serum chloride Forms Stand Alone Forms: My [facility] Prescriptions Prescriptions: No Action atorvastatin 20 mg tablet 20 mg PO QAM RF: 0 metoprolol succinate 25 mg tablet extended release 24 hr 12.5 mg PO QAM RF: 0 lisinopril 2.5 mg tablet 2.5 mg PO QAM RF: 0 pantoprazole 40 mg Tablet,Delayed Release (Dr/Ec) 40 mg PO DAILY RF: 0 gabapentin 100 mg Capsule 100 mg PO BID RF: 0 escitalopram oxalate 5 mg Tablet 5 mg PO DAILY RF: 0
[2020-10-23 13:52] LABS: Basophils # (auto) 0.01 K/uL (0-0.2); Basophils % (auto) 0.2 %; Eosinophils # (auto) 0.11 K/uL (0-0.5); Hematocrit (blood only) 37.5 % (37-47); Hemoglobin 12.2 g/dL (12.0-16.0); Immature Granulocytes # (auto) 0.01 K/uL (0.00-0.02); Immature Granulocytes % (auto) 0.2 %; Lymphocytes # (auto) 1.38 K/uL (1.2-3.4); Lymphocytes % (auto) 24.6 %; Mean Corpuscular Hemoglobin 32.5 pg (25-34); Mean Corpuscular Hgb Conc 32.5 g/dL (32-36); Mean Platelet Volume 10.7 fL (7.4-10.4); Monocytes # (auto) 0.54 K/uL (0.11-0.59); Monocytes % (auto) 9.6 %; Neutrophils # (auto) 3.56 K/uL (1.4-6.5); Neutrophils % (auto) 63.4 %; Platelet Count 173 K/uL (130-400); RDW Coefficient of Variation 14.5 % (11.5-14.5); Red Blood Count 3.75 M/uL (4.2-5.4); White Blood Count 5.61 K/uL (4.8-10.8)
[2020-10-23 14:02] LABS: Prothrombin Time 9.7 Seconds (9.0-12.0)
[2020-10-23 14:10] LABS: Blood Urea Nitrogen 23 mg/dl (7-18); Carbon Dioxide 28 mmol/L (21-32); Chloride 109 mmol/L (98-107); Sodium 141 mmol/L (136-145)
[2020-10-23 14:11] LABS: Alanine Aminotransferase 14 U/L (12-78); Albumin Level 3.2 gm/dl (3.4-5.0); Aspartate Aminotransferase 13 U/L (15-37); BUN Creatinine Ratio 23.5 (10-20); Creatinine Clr Calc Pharmacy 54.1 ml/min; Est GFR (African American) 67.5 ml/min; Est GFR (Non-African American) 58.3 ml/min; Glucose 88 mg/dl (70-99); Magnesium 2.5 mg/dl (1.8-2.4)
[2020-10-23 14:12] LABS: Appearance Urine Clear (Clear); Bilirubin Urine Negative (Negative); Blood Urine Negative (Negative); Color Urine Yellow; Glucose Urine UA Negative (Negative); Ketones Urine Negative (Negative); Leukocyte Esterase Urine Negative (Negative); Nitrite Urine Negative (Negative); Protein Urine Negative (Negative); Urobilinogen Urine Negative (Negative)
[2020-10-23 14:21] LABS: Albumin Globulin Ratio 0.9 (0.9-2); Alkaline Phosphatase 118 U/L (45-117); Bilirubin,Total 0.5 mg/dl (0.2-1); Globulin 3.7 gm/dl (2.5-4.0); Total Protein 6.9 gm/dl (6.4-8.2); Troponin I < 0.015 ng/ml (0-0.045)
--- NOTE | 2020-10-23 14:34 | XRay Report ---
XR chest 1V portable HISTORY: Respiratory distress c/w COVID-19 COMPARISON: Chest 10/23/2020. FINDINGS: The lungs are clear. Cardiac silhouette remains borderline enlarged. No pleural effusions. No pneumothorax. Left supraclavicular surgical clips are again noted. Prior cholecystectomy. IMPRESSION: Borderline cardiomegaly, unchanged. No new focal lung consolidations to suggest pneumonia. ACT 112: Negative or not required by law. Electronically signed by: Tarun Howard M.D. 10/23/2020 2:33 PM
--- NOTE | 2020-10-23 15:52 | Electrocardiogram Report ---
Test Reason : Blood Pressure : / mmHG Vent. Rate : 057 BPM Atrial Rate : 056 BPM P-R Int : 000 ms QRS Dur : 140 ms QT Int : 500 ms P-R-T Axes : 000 -33 049 degrees QTc Int : 486 ms Sinus bradycardia Left axis deviation Left bundle branch block Abnormal ECG When compared with ECG of 29-JUN-2020 01:12, No significant change Confirmed by Bobby Scott ([id number]) on 10/23/2020 3:51:44 PM Referred By: REFERRED SELF Confirmed By:Bobby Scott
--- NOTE | 2020-10-23 15:54 | History & Physical Report ---
Date of Service October 23, 2020 Assessment & Plan (1) Weakness: Generalized weakness Generalized debility/deconditioning secondary to comorbidities Multiple Falls CT head: No acute intracranial findings TSH: Normal Check Vit B12 Fall precautions PT OT May need permanent placement Case management consulted (2) COVID-19: COVID-19 infection CXR:Borderline cardiomegaly, unchanged. No new focal lung consolidations to suggest pneumonia. Reports minimal nonexpectorant cough Saturating well on room air Currently does not meet any treatment criteria Chronic hallucinations Unclear etiology Will consult Psychiatry Hypertension Continue lisinopril, metoprolol Dyslipidemia Continue atorvastatin Chronic left bundle branch block Chemotherapy-induced cardiomyopathy Monitor volume status Not on diuretics chronically Consider diuretics as needed GERD Continue pantoprazole CKD stage III Renal function at baseline Monitor renal function Past tobacco use As per records History of recurrent non-Hodgkin's lymphoma History of brain metastasis S/P chemotherapy, radiation therapy Currently in remission DVT Px: SCDs Code Status Full Code Disposition To be determined History of Present Illness Chief Complaint: Generalized weakness Primary Care Provider: NO PCP Patient is a 74-year-old female with history of chemotherapy-induced cardiomyopathy, CKD stage III, dyslipidemia, non-Hodgkin's lymphoma with intracranial spread, lymphoma, chronic left bundle branch block, past tobacco use and other medical problems presents with history of generalized weakness since 2 weeks duration. Patient is a poor historian. History is also obtained from patient's , old records and ER physician. Patient has been states that she has been falling multiple times since last few weeks secondary to lower extremity weakness. He states that he is no longer able to take care of his . Patient is having difficulty even to go to bathroom. Patient has been having hallucinations since about 2 years as per family. Patient uses walker for ambulation at baseline. She was tested positive for Covid while in ED. She denies any sick contact, recent travel but admits that her was tested positive as well. She has minimal non expectorant cough intermittently. She denies getting vaccinated for Covid. Denies any history of chest pain, SOB, dizziness, hemoptysis, fever, chills, headache, change in vision, nausea, vomiting, abdominal pain, diarrhea, change in appetite, weight loss, dysuria, hematuria, recent change in medications. Allergies Allergy/AdvReac Type Severity Reaction Status Date / Time Penicillins Allergy Severe Anaphylaxis Verified 10/23/20 16:32 pollen extracts Allergy Intermediate ITCHY Verified 10/23/20 16:32 EYES, SNEEZING, CONGESTION BASE METALS Allergy Mild Rash Uncoded 10/23/20 16:32 Home Medications Medication Instructions Recorded Confirmed Type atorvastatin 20 mg PO QAM 11/10/18 10/23/20 History lisinopril 2.5 mg PO QAM 11/10/18 10/23/20 History metoprolol succinate 12.5 mg PO QAM 11/10/18 10/23/20 History escitalopram oxalate 5 mg PO DAILY 12/05/19 10/23/20 History gabapentin 100 mg PO BID 12/05/19 10/23/20 History pantoprazole 40 mg PO DAILY 12/05/19 10/23/20 History Past Med/Surg History Medical History Brain tumor Esophageal reflux Large cell lymphoma, lymph nodes of head, face, and neck Lymphoma in remission Surgical History S/P hip replacement Family History Other Cancer Heart disease Social History Smoking Status: Never smoker Tobacco Type: Cigarettes Hx Alcohol Use: No Hx Substance Use: No Preferred Language: Nauruan Communication Ability: Effective Head Counselor Required: No Beliefs That Will Affect Care: None marital status: Current Living Situation: Spouse current occupational status: retired Feels Safe at Home: Yes Assistive Devices: Walker Review of Systems Review of Systems: All systems reviewed & are unremarkable except as noted in HPI & below Physical Exam Physical Exam: Physical Exam: Vitals signs as noted above General Appearance:Obese, +Alopecia, Chronic ill appearing, no apparent distress Head: normocephalic, Atraumatic Eyes: normal inspection, EOMI Neck: supple, Trachea midline Respiratory/Chest: Normal breath sounds, CTA Cardiovascular: S1, S2, No murmur Abdomen/GI:Soft, Non tender, Bowel sounds present Extremities/Musculoskeletal:normal inspection, 1-1+ B/L LE edema Neurologic/Psych:AAOX3, grossly moves all extremities Skin: normal color, warm Results & Data Results & Data ([place]) Vital Signs (Past 12 Hours) Vital Signs Temp Pulse Resp BP Pulse Ox 10/23/20 14:30 57 L 17 124/60 95 10/23/20 14:00 55 L 13 121/69 95 10/23/20 12:18 36.5 C 66 18 145/82 H 97 Laboratory Results Short CBC 10/23/20 Range/Units 13:40 WBC 5.61 (4.8-10.8) K/uL Hgb 12.2 (12.0-16.0) g/dL Hct 37.5 (37-47) % Plt Count 173 (130-400) K/uL BMP 10/23/20 13:40 Sodium 141 Potassium 4.0 Chloride 109 H Carbon Dioxide 28 BUN 23 H Creatinine 0.96 Glucose 88 Calcium 9.0 Cardiac Enzymes 10/23/20 Range/Units 13:40 Troponin I < 0.015 (0-0.045) ng/ml Liver Function 10/23/20 Range/Units 13:40 Total Bilirubin 0.5 (0.2-1) mg/dl AST 13 L (15-37) U/L ALT 14 (12-78) U/L Alkaline Phosphatase 118 H (45-117) U/L Albumin 3.2 L (3.4-5.0) gm/dl Urine 10/23/20 Range/Units 14:00 Urine Color Yellow Urine Appearance Clear (Clear) Urine pH 7.0 (4.5-7.5) Ur Specific [place] 1.020 (1.000-1.030) Urine Protein Negative (Negative) Urine Glucose (UA) Negative (Negative) Diagnostic Findings CXR:Borderline cardiomegaly, unchanged. No new focal lung consolidations to suggest pneumonia. CT Head:No acute intracranial findings ECG Additional Comments: EKG: Sinus bradycardia, left axis deviation, left bundle branch block, QTC 486.
[2020-10-23] MEDS ORDERED: ACETAMINOPHEN 325 MG TAB PO PRN (19:47)
[2020-10-23] MEDS ORDERED: SODIUM CHLORIDE 0.9% 1000ML 1,000 ML IV ONE (19:47)
[2020-10-23] MEDS ORDERED: POLYETHYLENE (MIRALAX) 17 GM PACK PO PRN (19:47)
[2020-10-23] MEDS: GABAPENTIN 100 MG CAP PO SCH (21:16)
[2020-10-24 07:14] LABS: Hematocrit (blood only) 36.2 % (37-47); Hemoglobin 11.5 g/dL (12.0-16.0); Mean Corpuscular Hemoglobin 32.1 pg (25-34); Mean Corpuscular Hgb Conc 31.8 g/dL (32-36); Mean Corpuscular Volume 101.1 fL (80-100); Mean Platelet Volume 10.4 fL (7.4-10.4); Platelet Count 161 K/uL (130-400); RDW Coefficient of Variation 14.6 % (11.5-14.5); RDW Standard Deviation 54.2 fL (36.4-46.3); Red Blood Count 3.58 M/uL (4.2-5.4); White Blood Count 5.19 K/uL (4.8-10.8)
[2020-10-24 07:44] LABS: BUN Creatinine Ratio 23.1 (10-20); Calcium 8.1 mg/dl (8.5-10.1); Creatinine Clr Calc Pharmacy 63.7 ml/min; Est GFR (African American) 71.1 ml/min; Est GFR (Non-African American) 61.3 ml/min; Magnesium 2.5 mg/dl (1.8-2.4); Potassium 4.1 mmol/L (3.5-5.1)
[2020-10-24] MEDS: GABAPENTIN 100 MG CAP PO SCH ×2 (07:56→20:15)
[2020-10-24] MEDS: PANTOprazole 40 MG TAB PO SCH (07:56)
[2020-10-24] MEDS: lisinopril 2.5 MG TAB PO SCH (07:57)
[2020-10-24] MEDS: ESCITALOPRAM OXALATE 10 MG TAB PO SCH (07:57)
[2020-10-24] MEDS: METOPROLOL SUCC 25MG EXT REL TAB PO SCH (07:57)
[2020-10-24] MEDS: ATORVASTATIN 20 MG TAB PO SCH (07:57)
--- NOTE | 2020-10-24 09:20 | Hospitalist Progress Note ---
Date of Service October 24, 2020 Assessment & Plan (1) Weakness: Generalized weakness Generalized debility/deconditioning secondary to comorbidities Multiple Falls CT head: No acute intracranial findings TSH: Normal Check Vit B12 Fall precautions PT OT May need permanent placement Case management consulted (2) COVID-19: COVID-19 infection CXR:Borderline cardiomegaly, unchanged. No new focal lung consolidations to suggest pneumonia. Reports minimal nonexpectorant cough Saturating well on room air Currently does not meet any treatment criteria Chronic hallucinations Unclear etiology Will consult Psychiatry Hypertension Continue lisinopril, metoprolol Dyslipidemia Continue atorvastatin Chronic left bundle branch block Chemotherapy-induced cardiomyopathy Monitor volume status Not on diuretics chronically Consider diuretics as needed GERD Continue pantoprazole CKD stage III Renal function at baseline Monitor renal function Past tobacco use As per records History of recurrent non-Hodgkin's lymphoma History of brain metastasis S/P chemotherapy, radiation therapy Currently in remission DVT Px: SCDs Code Status Full Code Disposition To be determined Labs Checked ROS-No Headache, No Visual Changes, No Nausea, No Vomiting, No Fever, No Chills, No Neck Pain or Stiffness, No Chest Pain, No Palpitations, No SOB, No NELSON, No Cough, No Sputum, No Wheezing, No Abdominal Pain, No Diarrhea, No Hematemesis, No Hemoptysis, No Unexpected Weight Loss, No Flank pain, No Melena, No Hematochezia, No Frequency, No Urgency, No Burning, No Hematuria, No Rashes, No Diaphoresis. Appetite is Normal, Weak Physical Exam Gen-AAO x 3, NAD, Afebrile, obese Head-NCAT, EOMI, PERRLA, Anicteric Sclera, No Posterior Pharyngeal Erythema Neck-Supple, No JVD, No Thyromegaly, No Masses, No LAD, No Bruits Lungs-Clear to Auscultation Bilaterally, No Rales, No Rhonchi, No Wheezing, No Crepitus Chest-No S4, +S1, +S2, No S3, No Murmurs, No Rubs, No Gallops, No Ectopy Abdomen-Soft, Bowel Sounds Present, Non Tender, Non Distended, No Hepatomegaly, No Splenomegaly, No Palpable Masses, No Rebound, No Rigidity, No Guarding Musculoskeletal-Full Range of Motion Bilaterally, No CVAT Extremities-No Cyanosis, No Clubbing, No Edema Nuero-Cranial Nerves II-XII grossly intact, Motor WNL, DTRs WNL, Strength WNL, Non Focal Psych-Normal Mood Admission and Anticipated Discharge Date Admission Date: October 23, 2020 Results & Data Results & Data ([facility]) Vital Signs (Past 12 Hours) Vital Signs Temp Pulse Pulse Resp BP Pulse Ox 10/24/20 07:46 61 20 119/78 98 10/24/20 03:50 36.5 C 66 19 115/73 94 10/24/20 03:38 64 10/23/20 22:19 36.5 C 62 19 114/69 97
--- NOTE | 2020-10-24 12:46 | Psychiatric Consultation ---
Date of Consultation October 24, 2020 Impression / Recommendations Impression 74 yo female with a history of brain tumor presents with progressive physical and cognitive decline prior to COVID. Visual ernandez seem most explained by her neurologic condition and do not seem to indicate any sign of underlying psychosis, delirium, or seizure. Although they occur with some regularity, they do not result in agitated behavior that would justify risks of an atypical antipsychotic. She is psychiatric stable for discharge to appropriate level of nursing care, ie SNF as recommended by primary service. Psych History Identifying Data 74 yo female admit for progressive decline at home, COVID positive with hx of visual ernandez. Consult is by hospitalist group and is limited by isolation status and patient's limited ability to provide history by phone. Liaison nurse gathered collateral from . Chief Complaint "whatever world she is in seems happy"--per to liaison. History of Present Illness Reported as having paranoia since 2019, on clarification reports doesn't believe things she sees aren't real or where she is at times. 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 EEG on file shows R posterior slowing which was ordered to rule out seizure for encephalopathy/intermittent worsening of AMS. visual ernandze initial started as part of UTIs but currently occur intermittently at home, perhaps more toward evening seeing a child or branches on the floor. reports she is sleeping well and denies depression or anxiety. She doesn't become agitated and never aggressive in response to these visual phenomena. Appears that she has been on steady, low dose of Lexapro following her cancer treatment. Otherwise no reported stigmata of serotonin syndrome such as tachy, flushing, hyperreflexia. Past Psychiatric History Previous Psych History: none Allergies Allergy/AdvReac Type Severity Reaction Status Date / Time Penicillins Allergy Severe Anaphylaxis Verified 10/23/20 16:32 pollen extracts Allergy Intermediate ITCHY Verified 10/23/20 16:32 EYES, SNEEZING, CONGESTION BASE METALS Allergy Mild Rash Uncoded 10/23/20 16:32 Home Medications Medication Instructions Recorded Confirmed Type atorvastatin 20 mg PO QAM 11/10/18 10/23/20 History lisinopril 2.5 mg PO QAM 11/10/18 10/23/20 History metoprolol succinate 12.5 mg PO QAM 11/10/18 10/23/20 History escitalopram oxalate 5 mg PO DAILY 12/05/19 10/23/20 History gabapentin 100 mg PO BID 12/05/19 10/23/20 History pantoprazole 40 mg PO DAILY 12/05/19 10/23/20 History Family History denies Substance Abuse History denies Personal History Living Arrangements: Home Employment Status: Retired Marital Status: Beliefs That Will Affect Care: None Patient History Medical History Brain tumor Esophageal reflux Large cell lymphoma, lymph nodes of head, face, and neck Lymphoma in remission Surgical History S/P hip replacement Family History Other Cancer Heart disease Social History Smoking Status: Former smoker Tobacco Type: Cigarettes Smoking End Date: 20 years ago; Second Hand Exposure: No; Do You Dip or Chew Tobacco: No; Tobacco Cessation Education Requested by Patient: No Hx Alcohol Use: No Hx Substance Use: No Preferred Language: Greek Communication Ability: Effective Concrete Buster Operator Required: No Beliefs That Will Affect Care: None marital status: Current Living Situation: Spouse current occupational status: retired Other Information That Helps Us Care for You: No Feels Safe at Home: Yes Safety Concerns: Feels Safe At This Time Assistive Devices: Walker Physical Exam Mental Examination: pleasant on the phone, poor memory, brief answers, denies ernandez at this time. Denies SI. Vital Signs (Past 24 Hours): Last Vital Signs Temp 36.3 C L 10/24/20 11:57 Pulse 63 10/24/20 11:57 Resp 18 10/24/20 11:57 BP 136/81 10/24/20 11:57 Pulse Ox 95 10/24/20 11:57 Review of Systems Unobtainable due to cognitive status Results & Data (PSY) Medications Administered Atorvastatin Calcium (Atorvastatin 20 Mg Tab) 20 mg PO QAM [facility] Stop: 11/23/20 08:59 Last Admin: 10/24/20 07:57 Dose: 20 mg Documented by: [id number] Escitalopram Oxalate (Escitalopram Oxalate 10 Mg Tab) 5 mg PO DAILY [facility] Stop: 11/23/20 08:59 Last Admin: 10/24/20 07:57 Dose: 5 mg Documented by: [id number] Gabapentin (Gabapentin 100 Mg Cap) 100 mg PO BID [facility] Stop: 11/22/20 20:59 Last Admin: 10/24/20 07:56 Dose: 100 mg Documented by: [id number] Admin: 10/23/20 21:16 Dose: 100 mg Documented by: [id number] Lisinopril (Lisinopril 2.5 Mg Tab) [facility] Stop: 11/23/20 08:59 Last Admin: 10/24/20 07:57 Dose: 2.5 mg Documented by: [id number] Metoprolol Succinate (Metoprolol Succ 25mg Ext Rel Tab) 12.5 mg PO [facility] Stop: 11/23/20 08:59 Last Admin: 10/24/20 07:57 Dose: 12.5 mg Documented by: [id number] Pantoprazole Sodium (Pantoprazole 40 Mg Tab) 40 mg PO DAILY [facility] Stop: 11/23/20 08:59 Last Admin: 10/24/20 07:56 Dose: 40 mg Documented by: [id number] Coding Level of Care Code 16487 U Intl Hosp Care Lvl 1
[2020-10-25] MEDS ORDERED: MICONAZOLE NITRATE POWDER 43 GM EXT PRN (04:42)
[2020-10-25 06:57] LABS: Basophils # (auto) 0.01 K/uL (0-0.2); Basophils % (auto) 0.2 %; Eosinophils # (auto) 0.14 K/uL (0-0.5); Eosinophils % (auto) 2.8 %; Hematocrit (blood only) 35.1 % (37-47); Hemoglobin 11.3 g/dL (12.0-16.0); Immature Granulocytes # (auto) 0.01 K/uL (0.00-0.02); Immature Granulocytes % (auto) 0.2 %; Lymphocytes # (auto) 1.57 K/uL (1.2-3.4); Lymphocytes % (auto) 31.4 %; Mean Corpuscular Hemoglobin 31.8 pg (25-34); Mean Corpuscular Hgb Conc 32.2 g/dL (32-36); Mean Corpuscular Volume 98.9 fL (80-100); Mean Platelet Volume 10.6 fL (7.4-10.4); Monocytes # (auto) 0.47 K/uL (0.11-0.59); Monocytes % (auto) 9.4 %; Platelet Count 157 K/uL (130-400); RDW Coefficient of Variation 14.4 % (11.5-14.5); RDW Standard Deviation 51.6 fL (36.4-46.3); Red Blood Count 3.55 M/uL (4.2-5.4)
[2020-10-25 07:31] LABS: BUN Creatinine Ratio 27.9 (10-20); Calcium 8.6 mg/dl (8.5-10.1); Creatinine Clr Calc Pharmacy 49.2 ml/min; Est GFR (African American) 52.1 ml/min; Est GFR (Non-African American) 44.9 ml/min; Potassium 4.3 mmol/L (3.5-5.1)
[2020-10-25] MEDS: METOPROLOL SUCC 25MG EXT REL TAB PO SCH (08:39)
--- NOTE | 2020-10-25 09:03 | Hospitalist Progress Note ---
Date of Service October 25, 2020 Assessment & Plan (1) Weakness: Generalized weakness Generalized debility/deconditioning secondary to comorbidities Multiple Falls CT head: No acute intracranial findings TSH: Normal Check Vit B12 Fall precautions PT/OT May need permanent placement Case management consulted (2) COVID-19: COVID-19 infection CXR:Borderline cardiomegaly, unchanged. No new focal lung consolidations to suggest pneumonia. Reports cough Saturating well on room air Currently does not meet any treatment criteria Chronic hallucinations Unclear etiology Psychiatry note reviewed Hypertension Continue lisinopril, metoprolol Dyslipidemia Continue atorvastatin Chronic left bundle branch block Chemotherapy-induced cardiomyopathy GERD Continue pantoprazole CKD stage III Renal function at baseline Monitor renal function Past tobacco use As per records History of recurrent non-Hodgkin's lymphoma History of brain metastasis S/P chemotherapy, radiation therapy Currently in remission DVT Px: SCDs Code Status Full Code Disposition To be determined Labs Checked ROS-No Headache, No Visual Changes, No Nausea, No Vomiting, No Fever, No Chills, No Neck Pain or Stiffness, No Chest Pain, No Palpitations, No SOB, No NELSON, No Cough, No Sputum, No Wheezing, No Abdominal Pain, No Diarrhea, No Hematemesis, No Hemoptysis, No Unexpected Weight Loss, No Flank pain, No Melena, No Hematochezia, No Frequency, No Urgency, No Burning, No Hematuria, No Rashes, No Diaphoresis. Appetite is Normal, Weak Physical Exam Gen-AAO x 3, NAD, Afebrile, obese Head-NCAT, EOMI, PERRLA, Anicteric Sclera, No Posterior Pharyngeal Erythema Neck-Supple, No JVD, No Thyromegaly, No Masses, No LAD, No Bruits Lungs-Clear to Auscultation Bilaterally, No Rales, No Rhonchi, No Wheezing, No Crepitus Chest-No S4, +S1, +S2, No S3, No Murmurs, No Rubs, No Gallops, No Ectopy Abdomen-Soft, Bowel Sounds Present, Non Tender, Non Distended, No Hepatomegaly, No Splenomegaly, No Palpable Masses, No Rebound, No Rigidity, No Guarding Musculoskeletal-Full Range of Motion Bilaterally, No CVAT Extremities-No Cyanosis, No Clubbing, No Edema Nuero-Cranial Nerves II-XII grossly intact, Motor WNL, DTRs WNL, Strength WNL, Non Focal Psych-Normal Mood Admission and Anticipated Discharge Date Admission Date: October 23, 2020 Results & Data Results & Data ([facility]) Vital Signs (Past 12 Hours) Vital Signs Temp Pulse Pulse Resp BP Pulse Ox 10/25/20 08:02 36.6 C 58 L 18 126/72 96 10/25/20 07:20 50 L 10/25/20 03:49 36.6 C 68 18 126/68 93 10/25/20 00:50 58 L 10/24/20 23:33 36.9 C 59 L 16 116/70 97
[2020-10-25] MEDS: ESCITALOPRAM OXALATE 10 MG TAB PO SCH (09:09)
[2020-10-25] MEDS: GABAPENTIN 100 MG CAP PO SCH ×2 (09:09→21:21)
[2020-10-25] MEDS: ATORVASTATIN 20 MG TAB PO SCH (09:09)
[2020-10-25] MEDS: PANTOprazole 40 MG TAB PO SCH (09:10)
[2020-10-25] MEDS: lisinopril 2.5 MG TAB PO SCH (09:10)
[2020-10-26 07:36] LABS: BUN Creatinine Ratio 33.4 (10-20); Calcium 8.5 mg/dl (8.5-10.1); Creatinine Clr Calc Pharmacy 54.7 ml/min; Est GFR (African American) 59.2 ml/min; Est GFR (Non-African American) 51.1 ml/min; Potassium 4.3 mmol/L (3.5-5.1)
[2020-10-26 08:39] LABS: Hematocrit (blood only) 34.9 % (37-47); Hemoglobin 11.3 g/dL (12.0-16.0); Mean Corpuscular Hemoglobin 31.8 pg (25-34); Mean Corpuscular Hgb Conc 32.4 g/dL (32-36); Mean Corpuscular Volume 98.3 fL (80-100); Mean Platelet Volume 11.2 fL (7.4-10.4); Platelet Count 147 K/uL (130-400); RDW Coefficient of Variation 14.6 % (11.5-14.5); RDW Standard Deviation 52.6 fL (36.4-46.3); Red Blood Count 3.55 M/uL (4.2-5.4); White Blood Count 5.22 K/uL (4.8-10.8)
--- NOTE | 2020-10-26 08:50 | Hospitalist Progress Note ---
Date of Service October 26, 2020 Assessment & Plan (1) Weakness: Generalized weakness Generalized debility/deconditioning secondary to comorbidities Multiple Falls CT head: No acute intracranial findings TSH: Normal Check Vit B12 Fall precautions PT/OT May need permanent placement Case management consulted (2) COVID-19: COVID-19 infection CXR:Borderline cardiomegaly, unchanged. No new focal lung consolidations to suggest pneumonia. Reports cough Saturating well on room air Currently does not meet any treatment criteria Chronic hallucinations Unclear etiology Psychiatry note reviewed Hypertension Continue lisinopril, metoprolol Dyslipidemia Continue atorvastatin Chronic left bundle branch block Chemotherapy-induced cardiomyopathy GERD Continue pantoprazole CKD stage III Renal function at baseline Monitor renal function Past tobacco use As per records History of recurrent non-Hodgkin's lymphoma History of brain metastasis S/P chemotherapy, radiation therapy Currently in remission DVT Px: SCDs Code Status Full Code Disposition To be determined Labs Checked ROS-No Headache, No Visual Changes, No Nausea, No Vomiting, No Fever, No Chills, No Neck Pain or Stiffness, No Chest Pain, No Palpitations, No SOB, No NELSON, No Cough, No Sputum, No Wheezing, No Abdominal Pain, No Diarrhea, No Hematemesis, No Hemoptysis, No Unexpected Weight Loss, No Flank pain, No Melena, No Hematochezia, No Frequency, No Urgency, No Burning, No Hematuria, No Rashes, No Diaphoresis. Appetite is Normal, Weak Physical Exam Gen-AAO x 3, NAD, Afebrile, obese Head-NCAT, EOMI, PERRLA, Anicteric Sclera, No Posterior Pharyngeal Erythema Neck-Supple, No JVD, No Thyromegaly, No Masses, No LAD, No Bruits Lungs-Clear to Auscultation Bilaterally, No Rales, No Rhonchi, No Wheezing, No Crepitus Chest-No S4, +S1, +S2, No S3, No Murmurs, No Rubs, No Gallops, No Ectopy Abdomen-Soft, Bowel Sounds Present, Non Tender, Non Distended, No Hepatomegaly, No Splenomegaly, No Palpable Masses, No Rebound, No Rigidity, No Guarding Musculoskeletal-Full Range of Motion Bilaterally, No CVAT Extremities-No Cyanosis, No Clubbing, No Edema Nuero-Cranial Nerves II-XII grossly intact, Motor WNL, DTRs WNL, Strength WNL, Non Focal Psych-Normal Mood Admission and Anticipated Discharge Date Admission Date: October 23, 2020 Results & Data Results & Data ([facility]) Vital Signs (Past 12 Hours) Vital Signs Temp Pulse Pulse Resp BP Pulse Ox 10/26/20 07:08 64 10/26/20 03:37 36.5 C 72 18 104/59 L 94 10/25/20 23:30 64 10/25/20 22:04 36.4 C L 65 16 125/82 96
[2020-10-26] MEDS ORDERED: SODIUM CHLORIDE 0.9% 1000ML 1,000 ML IV SCH (09:00)
[2020-10-26] MEDS: lisinopril 2.5 MG TAB PO SCH (09:35)
[2020-10-26] MEDS: PANTOprazole 40 MG TAB PO SCH (09:35)
[2020-10-26] MEDS: ESCITALOPRAM OXALATE 10 MG TAB PO SCH (09:36)
[2020-10-26] MEDS: ATORVASTATIN 20 MG TAB PO SCH (09:36)
[2020-10-26] MEDS: GABAPENTIN 100 MG CAP PO SCH ×2 (09:37→20:45)
[2020-10-26] MEDS: METOPROLOL SUCC 25MG EXT REL TAB PO SCH (09:37)
--- NOTE | 2020-10-27 07:08 | Hospitalist Progress Note ---
Date of Service October 27, 2020 Assessment & Plan (1) Weakness: Generalized weakness Generalized debility/deconditioning secondary to comorbidities Multiple Falls CT head: No acute intracranial findings TSH: Normal Check Vit B12 Fall precautions PT/OT May need permanent placement Case management consulted (2) COVID-19: COVID-19 infection CXR:Borderline cardiomegaly, unchanged. No new focal lung consolidations to suggest pneumonia. Reports cough Saturating well on room air Currently does not meet any treatment criteria Chronic hallucinations Unclear etiology Psychiatry note reviewed Hypertension Continue lisinopril, metoprolol Dyslipidemia Continue atorvastatin Chronic left bundle branch block Chemotherapy-induced cardiomyopathy GERD Continue pantoprazole CKD stage III Renal function at baseline Monitor renal function Past tobacco use As per records History of recurrent non-Hodgkin's lymphoma History of brain metastasis S/P chemotherapy, radiation therapy Currently in remission DVT Px: SCDs Code Status Full Code Disposition Placement tomorrow Labs Checked ROS-No Headache, No Visual Changes, No Nausea, No Vomiting, No Fever, No Chills, No Neck Pain or Stiffness, No Chest Pain, No Palpitations, No SOB, No NELSON, No Cough, No Sputum, No Wheezing, No Abdominal Pain, No Diarrhea, No Hematemesis, No Hemoptysis, No Unexpected Weight Loss, No Flank pain, No Melena, No Hematochezia, No Frequency, No Urgency, No Burning, No Hematuria, No Rashes, No Diaphoresis. Appetite is Normal, Weak Physical Exam Gen-AAO x 3, NAD, Afebrile, obese Head-NCAT, EOMI, PERRLA, Anicteric Sclera, No Posterior Pharyngeal Erythema Neck-Supple, No JVD, No Thyromegaly, No Masses, No LAD, No Bruits Lungs-Clear to Auscultation Bilaterally, No Rales, No Rhonchi, No Wheezing, No Crepitus Chest-No S4, +S1, +S2, No S3, No Murmurs, No Rubs, No Gallops, No Ectopy Abdomen-Soft, Bowel Sounds Present, Non Tender, Non Distended, No Hepatomegaly, No Splenomegaly, No Palpable Masses, No Rebound, No Rigidity, No Guarding Musculoskeletal-Full Range of Motion Bilaterally, No CVAT Extremities-No Cyanosis, No Clubbing, No Edema Nuero-Cranial Nerves II-XII grossly intact, Motor WNL, DTRs WNL, Strength WNL, Non Focal Psych-Normal Mood Admission and Anticipated Discharge Date Admission Date: October 23, 2020 Results & Data Results & Data ([facility]) Vital Signs (Past 12 Hours) Vital Signs Temp Pulse Resp BP Pulse Ox 10/26/20 23:02 36.5 C 72 18 104/60 94 10/26/20 19:11 36.6 C 64 18 100/57 L 98
[2020-10-27 07:27] LABS: Hematocrit (blood only) 35.8 % (37-47); Hemoglobin 11.5 g/dL (12.0-16.0); Mean Corpuscular Hemoglobin 31.8 pg (25-34); Mean Corpuscular Hgb Conc 32.1 g/dL (32-36); Mean Corpuscular Volume 98.9 fL (80-100); Mean Platelet Volume 10.7 fL (7.4-10.4); Platelet Count 172 K/uL (130-400); RDW Coefficient of Variation 14.6 % (11.5-14.5); RDW Standard Deviation 51.8 fL (36.4-46.3); Red Blood Count 3.62 M/uL (4.2-5.4); White Blood Count 5.33 K/uL (4.8-10.8)
[2020-10-27 08:09] LABS: Est GFR (African American) 45.9 ml/min; Est GFR (Non-African American) 39.6 ml/min; Potassium 4.3 mmol/L (3.5-5.1)
[2020-10-27 08:10] LABS: BUN Creatinine Ratio 23.7 (10-20); Calcium 8.6 mg/dl (8.5-10.1); Creatinine Clr Calc Pharmacy 44.3 ml/min
[2020-10-27] MEDS: PANTOprazole 40 MG TAB PO SCH (08:20)
[2020-10-27] MEDS: ATORVASTATIN 20 MG TAB PO SCH (08:20)
[2020-10-27] MEDS: METOPROLOL SUCC 25MG EXT REL TAB PO SCH (08:20)
[2020-10-27] MEDS: lisinopril 2.5 MG TAB PO SCH (08:21)
[2020-10-27] MEDS: GABAPENTIN 100 MG CAP PO SCH ×2 (08:21→20:18)
[2020-10-27] MEDS: ESCITALOPRAM OXALATE 10 MG TAB PO SCH (08:21)
[2020-10-28] MEDS: GABAPENTIN 100 MG CAP PO SCH ×2 (08:21→21:43)
[2020-10-28] MEDS: PANTOprazole 40 MG TAB PO SCH (08:22)
[2020-10-28] MEDS: ESCITALOPRAM OXALATE 10 MG TAB PO SCH (08:22)
[2020-10-28] MEDS: METOPROLOL SUCC 25MG EXT REL TAB PO SCH (08:22)
[2020-10-28] MEDS: ATORVASTATIN 20 MG TAB PO SCH (08:22)
[2020-10-28] MEDS: lisinopril 2.5 MG TAB PO SCH (08:22)
--- NOTE | 2020-10-28 09:23 | Discharge Summary ---
Date of Service October 28, 2020 Admission HPI Per Admitting Provider Patient is a 74-year-old female with history of chemotherapy-induced cardiomyopathy, CKD stage III, dyslipidemia, non-Hodgkin's lymphoma with intracranial spread, lymphoma, chronic left bundle branch block, past tobacco use and other medical problems presents with history of generalized weakness since 2 weeks duration. Patient is a poor historian. History is also obtained from patient's , old records and ER physician. Patient has been states that she has been falling multiple times since last few weeks secondary to lower extremity weakness. He states that he is no longer able to take care of his . Patient is having difficulty even to go to bathroom. Patient has been having hallucinations since about 2 years as per family. Patient uses walker for ambulation at baseline. She was tested positive for Covid while in ED. She denies any sick contact, recent travel but admits that her was tested positive as well. She has minimal non expectorant cough intermittently. She denies getting vaccinated for Covid. Denies any history of chest pain, SOB, dizziness, hemoptysis, fever, chills, headache, change in vision, nausea, vomiting, abdominal pain, diarrhea, change in appetite, weight loss, dysuria, hematuria, recent change in medications. Admission Exam Per Admitting Provider Physical Exam: Vitals signs as noted above General Appearance:Obese, +Alopecia, Chronic ill appearing, no apparent distress Head: normocephalic, Atraumatic Eyes: normal inspection, EOMI Neck: supple, Trachea midline Respiratory/Chest: Normal breath sounds, CTA Cardiovascular: S1, S2, No murmur Abdomen/GI:Soft, Non tender, Bowel sounds present Extremities/Musculoskeletal:normal inspection, 1-1+ B/L LE edema Neurologic/Psych:AAOX3, grossly moves all extremities Skin: normal color, warm Principal Diagnosis Generalized weakness Generalized debility/deconditioning secondary to comorbidities Multiple Falls COVID-19: Chronic hallucinations Hypertension Dyslipidemia Chronic left bundle branch block Chemotherapy-induced cardiomyopathy GERD CKD stage III Past tobacco use History of recurrent non-Hodgkin's lymphoma History of brain metastasis Discharge Exam See below Discharge Data Allergies Allergy/AdvReac Type Severity Reaction Status Date / Time Penicillins Allergy Severe Anaphylaxis Verified 10/23/20 16:32 pollen extracts Allergy Intermediate ITCHY Verified 10/23/20 16:32 EYES, SNEEZING, CONGESTION BASE METALS Allergy Mild Rash Uncoded 10/23/20 16:32 Consultations 10/23/20 15:35 ED Decision to Admit Stat 10/23/20 19:47 Consult Psychiatry Routine Ordered Studies 10/23/20 13:03 CT head/brain wo con Stat Current Diagnoses Weakness (10/23/20) COVID-19 (10/23/20) Allergies Penicillins Allergy (Severe, Verified 10/23/20 16:32) Anaphylaxis pollen extracts Allergy (Intermediate, Verified 10/23/20 16:32) ITCHY EYES, SNEEZING, CONGESTION BASE METALS Allergy (Mild, Uncoded 10/23/20 16:32) Rash Height/Weight/Isolation Height 5 ft Weight 119.4 kg Isolation Type COVID Precautions Chemistry 10/27/20 06:51 Sodium 142 Potassium 4.3 Chloride 109 H Carbon Dioxide 29 Anion Gap 4.0 BUN 31 H Creatinine 1.32 H Glucose 85 Hospital Course (1) Weakness: Generalized weakness Generalized debility/deconditioning secondary to comorbidities Multiple Falls CT head: No acute intracranial findings TSH: Normal Vit B12 Fall precautions PT/OT May need permanent placement Case management consulted (2) COVID-19: COVID-19 infection CXR:Borderline cardiomegaly, unchanged. No new focal lung consolidations to suggest pneumonia. Reports cough Saturating well on room air Currently does not meet any treatment criteria Chronic hallucinations Unclear etiology Psychiatry note reviewed Hypertension Continue lisinopril, metoprolol Dyslipidemia Continue atorvastatin Chronic left bundle branch block Chemotherapy-induced cardiomyopathy GERD Continue pantoprazole CKD stage III Renal function at baseline Monitor renal function Past tobacco use As per records History of recurrent non-Hodgkin's lymphoma History of brain metastasis S/P chemotherapy, radiation therapy Currently in remission DVT Px: SCDs Code Status Full Code Disposition Placement today Labs Checked ROS-No Headache, No Visual Changes, No Nausea, No Vomiting, No Fever, No Chills, No Neck Pain or Stiffness, No Chest Pain, No Palpitations, No SOB, No NELSON, No Cough, No Sputum, No Wheezing, No Abdominal Pain, No Diarrhea, No Hematemesis, No Hemoptysis, No Unexpected Weight Loss, No Flank pain, No Melena, No Hematochezia, No Frequency, No Urgency, No Burning, No Hematuria, No Rashes, No Diaphoresis. Appetite is Normal, Weak Physical Exam Gen-AAO x 3, NAD, Afebrile, obese Head-NCAT, EOMI, PERRLA, Anicteric Sclera, No Posterior Pharyngeal Erythema Neck-Supple, No JVD, No Thyromegaly, No Masses, No LAD, No Bruits Lungs-Clear to Auscultation Bilaterally, No Rales, No Rhonchi, No Wheezing, No Crepitus Chest-No S4, +S1, +S2, No S3, No Murmurs, No Rubs, No Gallops, No Ectopy Abdomen-Soft, Bowel Sounds Present, Non Tender, Non Distended, No Hepatomegaly, No Splenomegaly, No Palpable Masses, No Rebound, No Rigidity, No Guarding Musculoskeletal-Full Range of Motion Bilaterally, No CVAT Extremities-No Cyanosis, No Clubbing, No Edema Nuero-Cranial Nerves II-XII grossly intact, Motor WNL, DTRs WNL, Strength WNL, Non Focal Psych-Normal Mood Total Time Total Time Spent Total Time Spent (In Minutes): 45 min Total Time Includes: Examination of the Patient, Discharge Planning, Medication Reconciliation and Communication With Other Providers Discharge Plan Discharge Items Patient Disposition: Transfer Retirement Fac Reason For Visit: WEAKNESS Discharge Diagnosis: Generalized weakness Generalized debility/deconditioning secondary to comorbidities Multiple Falls COVID-19: Chronic hallucinations Hypertension Dyslipidemia Chronic left bundle branch block Chemotherapy-induced cardiomyopathy GERD CKD stage III Past tobacco use History of recurrent non-Hodgkin's lymphoma History of brain metastasis Condition on Discharge: Fair Activity: Resume your previous activity Lifting: None Bathing: No limitations Exercise/Sports: None Weightbearing: Full weightbearing Weightbearing Comment: WBAT Non-emergency contact: Primary Care Provider Call non-emergency contact if: you have any medication questions Follow-up/Referrals: PCP,NO [Primary Care Provider] - Diet: Regular Addtl Attending Provider Instructions: PT/OT eval and treat, Possible LTC placement Pending Studies at Discharge: No Stand-Alone Forms: My [facility] Skilled Items Patient informed of condition?: Yes DNR: No Discharge Level of Care: Skilled Communicable Disease: Yes Discharge Prognosis: Stable Lines: None Urinary Catheter: No Medications and DC Order Prescriptions: New polyethylene glycol 3350 [Miralax] 17 gram Powder In Packet 17 g PO DAILY PRN (Reason: constipation) Qty: 10 RF: 0 Desenex 2 % Powder 1 applic EXT PRN PRN (Reason: To affected area) Qty: 15 RF: 0 Continued atorvastatin 20 mg tablet 20 mg PO QAM RF: 0 metoprolol succinate 25 mg tablet extended release 24 hr 12.5 mg PO QAM RF: 0 lisinopril 2.5 mg tablet 2.5 mg PO QAM RF: 0 pantoprazole 40 mg Tablet,Delayed Release (Dr/Ec) 40 mg PO DAILY RF: 0 gabapentin 100 mg Capsule 100 mg PO BID RF: 0 escitalopram oxalate 5 mg Tablet 5 mg PO DAILY RF: 0 Admission Data Admit Date/Time: 10/23/20 17:34 Attending Provider: Wilber Crowell Admit Provider: Frandy Heard Primary Care Provider: PCP,NO Other Providers: [facility] ; [facility] ; Frandy Heard ; Liss Griffith ; Dr Dhruv ; Linda Durbin ; Yash Jamison
[2020-10-29] MEDS: GABAPENTIN 100 MG CAP PO SCH ×2 (08:12→21:20)
[2020-10-29] MEDS: ESCITALOPRAM OXALATE 10 MG TAB PO SCH (08:13)
[2020-10-29] MEDS: METOPROLOL SUCC 25MG EXT REL TAB PO SCH (08:14)
[2020-10-29] MEDS: ATORVASTATIN 20 MG TAB PO SCH (08:14)
[2020-10-29] MEDS: lisinopril 2.5 MG TAB PO SCH (08:14)
[2020-10-29] MEDS: PANTOprazole 40 MG TAB PO SCH (08:15)
--- NOTE | 2020-10-29 19:47 | Hospitalist Progress Note ---
Date of Service October 29, 2020 Assessment & Plan (1) Weakness: Generalized weakness Generalized debility/deconditioning secondary to comorbidities Multiple Falls CT head: No acute intracranial findings TSH: Normal Vit B12 Fall precautions PT/OT May need permanent placement Case management consulted (2) COVID-19: COVID-19 infection CXR:Borderline cardiomegaly, unchanged. No new focal lung consolidations to suggest pneumonia. Reports cough Saturating well on room air Currently does not meet any treatment criteria Chronic hallucinations Unclear etiology Psychiatry note reviewed Hypertension Continue lisinopril, metoprolol Dyslipidemia Continue atorvastatin Chronic left bundle branch block Chemotherapy-induced cardiomyopathy GERD Continue pantoprazole CKD stage III A/C RACHEAL, IVFs x 24 h Monitor renal function Past tobacco use As per records History of recurrent non-Hodgkin's lymphoma History of brain metastasis S/P chemotherapy, radiation therapy Currently in remission DVT Px: SCDs Code Status Full Code Disposition Placement pending Labs Checked ROS-No Headache, No Visual Changes, No Nausea, No Vomiting, No Fever, No Chills, No Neck Pain or Stiffness, No Chest Pain, No Palpitations, No SOB, No NELSON, No Cough, No Sputum, No Wheezing, No Abdominal Pain, No Diarrhea, No Hematemesis, No Hemoptysis, No Unexpected Weight Loss, No Flank pain, No Melena, No Hematochezia, No Frequency, No Urgency, No Burning, No Hematuria, No Rashes, No Diaphoresis. Appetite is Normal, Weak Physical Exam Gen-AAO x 3, NAD, Afebrile, obese Head-NCAT, EOMI, PERRLA, Anicteric Sclera, No Posterior Pharyngeal Erythema Neck-Supple, No JVD, No Thyromegaly, No Masses, No LAD, No Bruits Lungs-Clear to Auscultation Bilaterally, No Rales, No Rhonchi, No Wheezing, No Crepitus Chest-No S4, +S1, +S2, No S3, No Murmurs, No Rubs, No Gallops, No Ectopy Abdomen-Soft, Bowel Sounds Present, Non Tender, Non Distended, No Hepatomegaly, No Splenomegaly, No Palpable Masses, No Rebound, No Rigidity, No Guarding Musculoskeletal-Full Range of Motion Bilaterally, No CVAT Extremities-No Cyanosis, No Clubbing, No Edema Nuero-Cranial Nerves II-XII grossly intact, Motor WNL, DTRs WNL, Strength WNL, Non Focal Psych-Normal Mood Admission and Anticipated Discharge Date Admission Date: October 23, 2020 Results & Data Results & Data ([facility]) Vital Signs (Past 12 Hours) Vital Signs Temp Pulse Resp BP Pulse Ox 10/29/20 17:16 36.4 C L 82 20 101/66 98 10/29/20 14:12 96
[2020-10-29] MEDS: SODIUM CHLORIDE 0.9% 1000ML 1,000 ML IV SCH (20:02)
[2020-10-30 06:11] LABS: Hematocrit (blood only) 33.9 % (37-47); Hemoglobin 10.8 g/dL (12.0-16.0); Mean Corpuscular Hemoglobin 31.9 pg (25-34); Mean Corpuscular Hgb Conc 31.9 g/dL (32-36); Mean Platelet Volume 10.6 fL (7.4-10.4); Platelet Count 168 K/uL (130-400); RDW Coefficient of Variation 14.6 % (11.5-14.5); RDW Standard Deviation 53.1 fL (36.4-46.3); Red Blood Count 3.39 M/uL (4.2-5.4); White Blood Count 5.49 K/uL (4.8-10.8)
[2020-10-30] MEDS: SODIUM CHLORIDE 0.9% 1000ML 1,000 ML IV SCH (06:15)
[2020-10-30 06:39] LABS: BUN Creatinine Ratio 31.7 (10-20); Calcium 8.5 mg/dl (8.5-10.1); Est GFR (African American) 60.2 ml/min; Est GFR (Non-African American) 51.9 ml/min; Potassium 4.2 mmol/L (3.5-5.1)
[2020-10-30] MEDS: ATORVASTATIN 20 MG TAB PO SCH (08:07)
[2020-10-30] MEDS: ESCITALOPRAM OXALATE 10 MG TAB PO SCH (08:07)
[2020-10-30] MEDS: lisinopril 2.5 MG TAB PO SCH (08:08)
[2020-10-30] MEDS: PANTOprazole 40 MG TAB PO SCH (08:08)
[2020-10-30] MEDS: METOPROLOL SUCC 25MG EXT REL TAB PO SCH (08:08)
[2020-10-30] MEDS: GABAPENTIN 100 MG CAP PO SCH (08:08)
--- NOTE | 2020-10-30 10:57 | Hospitalist Progress Note ---
Date of Service October 30, 2020 Assessment & Plan (1) Weakness: Generalized weakness Generalized debility/deconditioning secondary to comorbidities Multiple Falls CT head: No acute intracranial findings TSH: Normal Vit B12 Fall precautions PT/OT May need permanent placement Case management consulted (2) COVID-19: COVID-19 infection CXR:Borderline cardiomegaly, unchanged. No new focal lung consolidations to suggest pneumonia. Reports cough Saturating well on room air Currently does not meet any treatment criteria Chronic hallucinations Unclear etiology Psychiatry note reviewed Hypertension Continue lisinopril, metoprolol Dyslipidemia Continue atorvastatin Chronic left bundle branch block Chemotherapy-induced cardiomyopathy GERD Continue pantoprazole CKD stage III A/C RACHEAL, IVFs x 24 h Monitor renal function Past tobacco use As per records History of recurrent non-Hodgkin's lymphoma History of brain metastasis S/P chemotherapy, radiation therapy Currently in remission DVT Px: SCDs Code Status Full Code Disposition Accepted today at [facility] Labs Checked ROS-No Headache, No Visual Changes, No Nausea, No Vomiting, No Fever, No Chills, No Neck Pain or Stiffness, No Chest Pain, No Palpitations, No SOB, No NELSON, No Cough, No Sputum, No Wheezing, No Abdominal Pain, No Diarrhea, No Hematemesis, No Hemoptysis, No Unexpected Weight Loss, No Flank pain, No Melena, No Hematochezia, No Frequency, No Urgency, No Burning, No Hematuria, No Rashes, No Diaphoresis. Appetite is Normal, Weak Physical Exam Gen-AAO x 3, NAD, Afebrile, obese Head-NCAT, EOMI, PERRLA, Anicteric Sclera, No Posterior Pharyngeal Erythema Neck-Supple, No JVD, No Thyromegaly, No Masses, No LAD, No Bruits Lungs-Clear to Auscultation Bilaterally, No Rales, No Rhonchi, No Wheezing, No Crepitus Chest-No S4, +S1, +S2, No S3, No Murmurs, No Rubs, No Gallops, No Ectopy Abdomen-Soft, Bowel Sounds Present, Non Tender, Non Distended, No Hepatomegaly, No Splenomegaly, No Palpable Masses, No Rebound, No Rigidity, No Guarding Musculoskeletal-Full Range of Motion Bilaterally, No CVAT Extremities-No Cyanosis, No Clubbing, No Edema Nuero-Cranial Nerves II-XII grossly intact, Motor WNL, DTRs WNL, Strength WNL, Non Focal Psych-Normal Mood Admission and Anticipated Discharge Date Admission Date: October 23, 2020 Results & Data Results & Data ([facility]) Vital Signs (Past 12 Hours) Vital Signs Temp Pulse Resp BP Pulse Ox 10/30/20 06:39 36.6 C 76 20 96/55 L 95 10/29/20 23:40 36.7 C 67 18 111/59 L 94
--- NOTE | 2020-11-05 17:34 | Coding Query ---
CODING QUERY To promote full compliance with coding requirements relating to patient care, provider participation is requested in all cases of crystal report developer uncertainty. Please assist us with the question(s) below: Coding Question(s): Patient admitted with weakness, repeat falls, lymphoma with intracrarnial mets, Covid-19 (no covid respiratory manifestations), and other comorbidities. Please document, if known or suspected, the etiology of the weakness. Thank you . Juan Guerra [facility] Physician's Response(s): Unable to determine Principal Diagnosis: "that condition established after study, to be chiefly responsible for occasioning the admission of the patient to the hospital for care." Co-Existing Principal Diagnosis: "when two or more diagnoses equally meet the criteria for principal diagnosis as determined by the circumstances of admission, diagnostic work up, and/or therapy provided, and the Alphabetic Index, Tabular List, or another coding guideline does not provide sequencing direction, any one of the diagnoses may be sequenced first." "When the physician has documented what appears to be a current diagnosis in the body of the record, but has not included the diagnosis in the final diagnostic statement, the physician should be asked whether the diagnosis should be added." (Source Coding Clinic 2 QTR90. p3-4) HEIDI
== END 2020-10-30 15:17 | DRG 91 ==
LOC: ED 12:10 → SUATTDRO 17:34 → 2W 17:34

== ENCOUNTER 2023-06-03 14:26 | Inpatient (IN) ==
--- NOTE | 2023-06-03 14:39 | Emergency Department Note ---
Impression & Plan Generalized weakness, Acute UTI (urinary tract infection), Non-ST elevation AR (NSTEMI), Vomiting ED Provider Note HISTORY OF PRESENT ILLNESS: Patient is a 77-year-old female presenting with generalized weakness and vomiting. Patient presents from [facility]. She reportedly woke up today and started vomiting. Patient denies any abdominal pain. Denies any chest pain or shortness of breath. Reports she feels very weak and unwell. No reported fever. Patient denies any dysuria or hematuria. Patient reportedly normally ambulates with a walker at baseline but was too weak to get up and get around today. Multiple episodes of vomiting at [facility]. ROS: as above PHYSICAL EXAM: Constitutional: Patient appears in no acute distress. HENT: Head: Normocephalic and atraumatic. Eyes: EOMI, PERRL Mouth/Throat: Mucous membranes moist. Neck: Trachea midline. Neck supple. Cardiovascular: Tachycardic with regular rhythm. No murmurs, rubs or gallops. Intact distal pulses. Pulmonary/Chest: No respiratory distress. Breath sounds clear and equal bilaterally. No wheezes or rales. Abdominal: Abdomen soft, no tenderness, rebound or guarding. Musculoskeletal: No tenderness or deformity noted. Non-pitting edema of bilateral lower extremities. Skin: Warm and dry. No rash, erythema, pallor or cyanosis Psychiatric: Appropriate mood and affect for situation. Neurological: Alert and keenly responsive. CN II-XII grossly intact MDM: - Vitals signs showed tachycardia - History obtained via patient and EMS. Patient presents with generalized weakness and vomiting. Patient reportedly woke up today and started vomiting. Denies any abdominal pain. Denies any chest pain or significant shortness of breath. Reports she feels very weak and unwell. No reported fevers. Denies any dysuria or hematuria. Normally ambulates with a walker at baseline but is too weak to get up and get around today. Multiple episodes of vomiting at [facility]. - Chronic conditions affecting care: non-Hodgkin's lymphoma - Differential diagnoses include, but are not limited to: cholecystitis; appendicitis; viral syndrome; electrolyte abnormality; ACS; pneumonia; UTI - Order placed for continuous cardiac monitoring. At this time, monitor showed rate of 113 bpm with normal sinus rhythm, per my interpretation. - External medical records reviewed. EMS run sheet was reviewed. Patient was tachycardic with EMS on their arrival. No medications given prehospital. - EKG interpreted by myself showed normal sinus rhythm. Rate 122 bpm. QTc 467. Noted to have a left bundle branch block. No acute ischemic changes. - Laboratory workup interpreted by myself showed leukocytosis (WBC 13.8) with left shift; thrombocytopenia (plt 116); stable electrolytes; elevated troponin (52.1) - Viral respiratory panel negative - CXR negative for pneumonia, per my interpretation - Repeat troponin rising to 57.8 - CT abdomen/pelvis wo contrast showed evidence concerning for cystitis. - Patient given 1L NS in ER. - UA shows evidence of infection. Given patient's anaphylaxis to penicillins, will treat with Levaquin. - Discussion was had with resident caregiver about patient's case and need for admission - Hospitalist consulted for admission - Patient admitted to [facility] service for further evaluation and management. ASSESSMENT AND PLAN: Diagnosis: generalized weakness; vomiting; NSTEMI; UTI Plan: admit Past Med/Surg History Medical History (Updated 06/03/23 @ 18:51 by Almita Holm MD) Brain tumor Lymphoma in remission Large cell lymphoma, lymph nodes of head, face, and neck Esophageal reflux Surgical History S/P hip replacement Family History Other Cancer Heart disease Social History Smoking Status: Never smoker Tobacco Type: Cigarettes Second Hand Exposure: No; Do You Dip or Chew Tobacco: No; Hx Alcohol Use: No Hx Substance Use: No Preferred Language: Azeri Communication Ability: Effective Air Hoist Operator Required: No Beliefs That Will Affect Care: None marital status: Current Living Situation: Spouse current occupational status: retired Feels Safe at Home: Yes Assistive Devices: Walker Allergies Allergies Allergy/AdvReac Type Severity Reaction Status Date / Time Penicillins Allergy Severe Anaphylaxis Verified 06/03/23 16:20 pollen extracts Allergy Intermediate ITCHY Verified 06/03/23 16:20 EYES, SNEEZING, CONGESTION BASE METALS Allergy Mild Rash Uncoded 06/03/23 16:20 Home Meds Home Medications Medication Instructions Recorded Confirmed atorvastatin 20 mg tablet 20 mg PO HS 11/10/18 06/03/23 gabapentin 100 mg capsule 100 mg PO BID 12/05/19 06/03/23 pantoprazole 40 mg tablet,delayed 40 mg PO DAILY 12/05/19 06/03/23 release acetaminophen 325 mg tablet 650 mg PO Q6H PRN PAIN/FEVER 06/03/23 06/03/23 (Tylenol) nystatin 100,000 unit/gram topical 1 applic topical BID 06/03/23 06/03/23 powder potassium chloride 20 mEq 40 meq PO BIDM 06/03/23 06/03/23 tablet,extended release promethazine 25 mg tablet 25 mg PO Q6H PRN NAUSEA/VOMITING 06/03/23 06/03/23 Results & Data (ED) Vital Signs Vital Signs - 24 hr 06/03/23 14:47 06/03/23 14:47 06/03/23 14:55 Temperature 36.5 C Temperature Source Oral Pulse Rate 120 H 120 H 120 H Pulse Rate from SpO2 Sensor Pulse Rhythm Regular Respiratory Rate 18 20 Blood Pressure 103/62 Blood Pressure Mean 75 Pulse Oximetry 92 95 Oxygen Delivery Method Room Air Room Air Sepsis Recent Fever Within 48 Hours No Sepsis New/Unexplained Change in Mental Status N/A Sepsis Action Taken by Nursing No Action Required 06/03/23 15:00 06/03/23 15:30 06/03/23 17:00 Temperature Temperature Source Pulse Rate 119 H 120 H 113 H Pulse Rate from SpO2 Sensor Pulse Rhythm Respiratory Rate 18 23 22 Blood Pressure 116/69 115/61 104/66 Blood Pressure Mean 84 79 85 Pulse Oximetry 98 99 98 Oxygen Delivery Method Sepsis Recent Fever Within 48 Hours Sepsis New/Unexplained Change in Mental Status Sepsis Action Taken by Nursing 06/03/23 18:20 Temperature Temperature Source Pulse Rate Pulse Rate from SpO2 Sensor 107 H Pulse Rhythm Respiratory Rate 16 Blood Pressure 115/57 L Blood Pressure Mean 76 Pulse Oximetry 93 Oxygen Delivery Method Sepsis Recent Fever Within 48 Hours Sepsis New/Unexplained Change in Mental Status Sepsis Action Taken by Nursing Laboratory Data 06/03/23 14:52 06/03/23 14:52 Lab Results 06/03/23 06/03/23 06/03/23 Range/Units 14:52 16:53 18:06 WBC 13.80 H (4.8-10.8) K/ul RBC 3.50 L (4.20-5.40) M/uL Hgb 11.1 L (12.0-16.0) g/dl Hct 36.5 L (37.0-47.0) % MCV 104.3 H (80.0-100.0) fL MCH 31.7 (25.0-34.0) pg MCHC 30.4 L (32.0-36.0) g/dL RDW Std Deviation 60.4 H (36.4-46.3) fL RDW Coeff of Lizette 15.8 H (11.5-14.5) % Plt Count 116 L (130-400) K/uL MPV 10.6 (9.4-12.4) fL Immature Gran % (Auto) 1.5 % Neut % (Auto) 93.3 % Lymph % (Auto) 3.3 % Starke % (Auto) 1.4 % Eos % (Auto) 0.1 % Baso % (Auto) 0.4 % Neut # (Auto) 12.89 H (1.40-6.50) K/uL Lymph # (Auto) 0.45 L (1.20-3.40) K/uL Starke # (Auto) 0.19 (0.11-0.59) K/uL Eos # (Auto) 0.01 (0.00-0.50) K/uL Baso # (Auto) 0.05 (0.00-0.20) K/uL Immature Gran # (Auto) 0.21 H (0.01-0.20) K/uL Absolute Nucleated RBC 0.03 (0.00-0.12) K/uL Nucleated RBC % (auto) 0.2 % Toxic Vacuolation 1+ Polychromasia 1+ Tear Drop Cells 1+ Echinocytes 1+ Sodium 141 (136-145) mmol/L Potassium 4.0 (3.5-5.1) mmol/L Chloride 108 H (98-107) mmol/L Carbon Dioxide 22 (21-32) mmol/L Anion Gap 11 (3-11) BUN 19 (6-23) mg/dl Creatinine 1.05 (0.6-1.2) mg/dl Est Cr Clr Drug Dosing 56.2 ml/min Est GFR ( Amer) 59.3 ml/min Est GFR (Non-Af Amer) 51.2 ml/min BUN/Creatinine Ratio 18.1 (10-20) Glucose 88 (70-99(Fasting)) mg/dl Calcium 8.4 L (8.6-10.3) mg/dl Magnesium 1.7 (1.7-2.4) mg/dl Total Bilirubin 1.2 H (0.2-1.0) mg/dl AST 28 (13-39) U/L ALT 24 (7-52) U/L Alkaline Phosphatase 158 H (34-104) U/L Troponin I High Sens 52.1 H* 57.8 H* (0-14) pg/ml Total Protein 6.3 (6.0-8.3) gm/dl Albumin 3.3 L (3.4-5.0) gm/dl Globulin 3.0 (2.5-4.0) gm/dl Albumin/Globulin Ratio 1.1 (0.9-2) Urine Color Dark Yellow Urine Appearance Turbid A (Clear) Urine pH 5.0 (4.5-7.5) Ur Specific [place] 1.018 (1.000-1.030) Urine Protein 2+ H (Negative) Urine Glucose (UA) Negative (Negative) Urine Ketones Trace H (Negative) Urine Blood 3+ H (Negative) Urine Nitrite Positive A (Negative) Urine Bilirubin Negative (Negative) Urine Urobilinogen Negative (Negative) Ur Leukocyte Esterase 3+ H (Negative) Urine WBC (Auto) >30 H (0-5) /hpf Urine RBC (Auto) 10-30 H (0-4) /hpf U Hyaline Cast (Auto) 1-5 (0-5) /lpf U Epithel Cells (Auto) >30 H (0-5) /lpf Urine Bacteria (Auto) 2+ H (Negative) Urine Yeast Not Reportable Adenovirus (PCR) Not Detected (NotDetected) B. pertussis DNA (PCR) Not Detected (NotDetected) B.parapertussis DNA PCR Not Detected (NotDetected) C. pneumoniae DNA (PCR) Not Detected (NotDetected) Coronavirus OC43 (PCR) Not Detected (NotDetected) Coronavirus HKU1 (PCR) Not Detected (NotDetected) Coronavirus 229E (PCR) Not Detected (NotDetected) SARS-CoV-2 (PCR) Not Detected (NotDetected) Coronavirus NL63 (PCR) Not Detected (NotDetected) Human Metapneumovir PCR Not Detected (NotDetected) Influenza Type A (PCR) Not Detected (NotDetected) Influenza Type B (PCR) Not Detected (NotDetected) M. pneumoniae (PCR) Not Detected (NotDetected) Parainfluenza 1 (PCR) Not Detected (NotDetected) Parainfluenza 2 (PCR) Not Detected (NotDetected) Parainfluenza 3 (PCR) Not Detected (NotDetected) Parainfluenza 4 (PCR) Not Detected (NotDetected) RSV (PCR) Not Detected (NotDetected) Entero/Rhino (PCR) Not Detected (NotDetected) Administered Medications Discontinued Medications Sodium Chloride (Nss) 1,000 mls @ 999 mls/hr IV .Q1H1M STEVE Stop: 06/03/23 15:45 Last Infusion: 06/03/23 15:49 Dose: Infused Documented By: Admin: 06/03/23 14:41 Dose: 999 mls/hr Documented By: IRVIN Imaging Data Radiologist's Impression: Chest X-Ray 06/03/23 14:36 SINGLE VIEW CHEST CLINICAL HISTORY: Generalized weakness. Vomiting. FINDINGS: An AP, portable, upright chest radiograph is compared to study dated 10/23/2020. Correlation is made with chest CT dated 10/10/2016. The examination is degraded by portable technique comment large body habitus, and patient rotation. Surgical clips are noted in the left lower neck. The heart is mildly enlarged. There is pulmonary vascular congestion. There is mild elevation of the right hemidiaphragm with bibasilar atelectasis. No airspace consolidation or large pleural effusion is identified. No pneumothorax is seen. The skeletal structures are osteopenic. The bony thorax is grossly intact. Cholecystectomy clips are noted in the right upper quadrant. IMPRESSION: Cardiomegaly with mild pulmonary vascular congestion. ACT 112: Negative or not required by law. Electronically signed by: Renaldo Leong M.D. 06/03/2023 3:29 PM Abdomen/Pelvis CT 06/03/23 17:06 CT SCAN OF THE ABDOMEN AND PELVIS WITHOUT IV CONTRAST CLINICAL HISTORY: Vomiting. COMPARISON STUDY: Abdominal CT dated 06/29/2020 TECHNIQUE: CT scan of the abdomen and pelvis is performed from the lung bases to the proximal femora. Images are reviewed in the axial, sagittal, and coronal planes. IV contrast was not administered for this examination. Note that the examination was performed in suboptimal fashion without oral and IV contrast. A dose lowering technique was utilized adhering to the principles of ALARA. The examination is degraded by large body habitus, and by streak artifact from the body wall abutting the CT gantry. There is also streak artifact from the arms which could not be elevated above the abdomen. CT DOSE: 1942.38 mGy.cm FINDINGS: Lung bases: The heart is normal in size and without pericardial effusion. The coronary arteries are densely calcified. The lung bases are clear noting bibasilar scarring/atelectasis. Liver: The unenhanced liver is mildly enlarged measuring 18 cm in length. The liver demonstrates diffusely diminished attenuation indicating steatosis. There is no intrahepatic biliary ductal dilatation. Gallbladder: Surgically absent noting clips in the gallbladder fossa. Spleen: Normal in size and attenuation. Pancreas: The unenhanced pancreas is moderately atrophic and grossly unremarkable. Adrenal glands: Unremarkable. Kidneys: The unenhanced kidneys demonstrate mild cortical atrophy and are without hydronephrosis. An extrarenal pelvis is seen on the right. There are no renal calculi identified. There is no evidence of contour deforming renal mass lesion. Abdominal vasculature: The abdominal aorta is normal in course and caliber noting mild atherosclerotic calcification. Bowel: There is no bowel obstruction. The appendix is well-visualized and normal. Peritoneum: There is no intraperitoneal free air or abdominal ascites. There is a small fat-containing umbilical hernia. Lymphadenopathy: None. Pelvic viscera: Evaluation of the pelvis is degraded by streak artifact from a right hip arthroplasty. The bladder wall is thickened and there is pericystic inflammation. The outside uterine fibroids. No adnexal lesion is seen. Skeletal structures: The skeletal structures are osteopenic. There is mild lumbosacral spondylosis. A right hip arthroplasty is in place. There is avascular necrosis of the left femoral head. No lytic or blastic lesions are seen. IMPRESSION: 1. There is evidence of cystitis. Correlate with clinical findings and urinalysis. 2. Hepatomegaly and hepatic steatosis. 3. 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 4. Additional findings as above. ACT 112: Negative or not required by law. Electronically signed by: Renaldo Leong M.D. 06/03/2023 5:36 PM Discharge Plan Visit Data Chief Complaint: Lethargic ED Provider: Almita Holm Discharge Problem: Generalized weakness, Acute UTI (urinary tract infection), Non-ST elevation AR (NSTEMI), Vomiting Forms Stand Alone Forms: [facility] Prescriptions Prescriptions: No Action atorvastatin 20 mg tablet 20 mg PO HS pantoprazole 40 mg Tablet,Delayed Release (Dr/Ec) 40 mg PO DAILY gabapentin 100 mg Capsule 100 mg PO BID acetaminophen [Tylenol] 325 mg Tablet 650 mg PO Q6H MDD 3 GRAMS APAP/24 HOURS PRN (Reason: PAIN/FEVER) promethazine 25 mg Tablet 25 mg PO Q6H PRN (Reason: NAUSEA/VOMITING) Rx Instructions: MAY GIVE IM IF UNABLE TO TAKE PO. STARTED 06/03/23, ENDS 06/17/23. nystatin 100,000 unit/gram Powder 1 applic TOPICAL BID Rx Instructions: STARTED 06/03/23 WITH PM DOSE FOR 14 DAYS, APPLY UNDER BREASTS potassium chloride 20 mEq Tablet Extended Release 40 meq PO BIDM Referrals Referrals: [facility] [Primary Care Provider] -
[2023-06-03] MEDS ORDERED: SODIUM CHLORIDE 0.9% 1,000 ML IV SCH (14:45)
[2023-06-03 15:20] LABS: Hematocrit (blood only) 36.5 % (37.0-47.0); Hemoglobin 11.1 g/dl (12.0-16.0); Mean Corpuscular Hemoglobin 31.7 pg (25.0-34.0); Mean Corpuscular Hgb Conc 30.4 g/dL (32.0-36.0); Mean Corpuscular Volume 104.3 fL (80.0-100.0); Mean Platelet Volume 10.6 fL (9.4-12.4); Nucleated RBC # (auto) 0.03 K/uL (0.00-0.12); Nucleated RBC % (auto) 0.2 %; Platelet Count 116 K/uL (130-400); RDW Coefficient of Variation 15.8 % (11.5-14.5); RDW Standard Deviation 60.4 fL (36.4-46.3)
[2023-06-03 15:30] LABS: Albumin Globulin Ratio 1.1 (0.9-2); Albumin Level 3.3 gm/dl (3.4-5.0); BUN Creatinine Ratio 18.1 (10-20); Bilirubin,Total 1.2 mg/dl (0.2-1.0); Calcium 8.4 mg/dl (8.6-10.3); Creatinine Clr Calc Pharmacy 56.2 ml/min; Est GFR (African American) 59.3 ml/min; Est GFR (Non-African American) 51.2 ml/min; Magnesium 1.7 mg/dl (1.7-2.4); Total Protein 6.3 gm/dl (6.0-8.3)
--- NOTE | 2023-06-03 15:30 | XRay Report ---
SINGLE VIEW CHEST CLINICAL HISTORY: Generalized weakness. Vomiting. FINDINGS: An AP, portable, upright chest radiograph is compared to study dated 10/23/2020. Correlation is made with chest CT dated 10/10/2016. The examination is degraded by portable technique comment lar ge body habitus, and patient rotation. Surgical clips are noted in the left lower neck. The heart is mildly enlarged. There is pulmonary vascular congestion. There is mild elevation of the right hemidi aphragm with bibasilar atelectasis. No airspace consolidation or large pleural effusion is identified . No pneumothorax is seen. The skeletal structures are osteopenic. The bony thorax is grossly intact. Cholecystectomy clips are noted in the right upper quadrant. IMPRESSION: Cardiomegaly with mild pulmonary vascular congestion. ACT 112: Negative or not required by law. Electronically signed by: Renaldo Leong M.D. 06/03/2023 3:29 PM
[2023-06-03 15:47] LABS: Troponin I High Sensitivity 52.1 pg/ml (0-14)
[2023-06-03 15:52] LABS: Basophils # (auto) 0.05 K/uL (0.00-0.20); Basophils % (auto) 0.4 %; Echinocytes 1+; Eosinophils # (auto) 0.01 K/uL (0.00-0.50); Eosinophils % (auto) 0.1 %; Immature Granulocytes # (auto) 0.21 K/uL (0.01-0.20); Immature Granulocytes % (auto) 1.5 %; Lymphocytes # (auto) 0.45 K/uL (1.20-3.40); Lymphocytes % (auto) 3.3 %; Monocytes # (auto) 0.19 K/uL (0.11-0.59); Monocytes % (auto) 1.4 %; Neutrophils # (auto) 12.89 K/uL (1.40-6.50); Neutrophils % (auto) 93.3 %; Polychromasia 1+; Tear Drop Cells 1+; Toxic Vacuolation 1+
[2023-06-03 15:53] LABS: Adenovirus PCR Not Detected (NotDetected); Bordetella parapertussis PCR Not Detected (NotDetected); Bordetella pertussis PCR Not Detected (NotDetected); Chlamydia pneumoniae PCR Not Detected (NotDetected); Coronavirus 229E PCR Not Detected (NotDetected); Coronavirus CoV-2 (COVID19)PCR Not Detected (NotDetected); Coronavirus HKU1 PCR Not Detected (NotDetected); Coronavirus NL63 PCR Not Detected (NotDetected); Coronavirus OC43PCR Not Detected (NotDetected); Human Metapneumovirus PCR Not Detected (NotDetected); Influenza A PCR Not Detected (NotDetected); Influenza B PCR Not Detected (NotDetected); Mycoplasma pneumoniae PCR Not Detected (NotDetected); Parainfluenza Virus 1 PCR Not Detected (NotDetected); Parainfluenza Virus 2 PCR Not Detected (NotDetected); Parainfluenza Virus 3 PCR Not Detected (NotDetected); Parainfluenza Virus 4 PCR Not Detected (NotDetected); Respiratory Syncytial VirusPCR Not Detected (NotDetected); Rhinovirus/Enterovirus PCR Not Detected (NotDetected)
--- NOTE | 2023-06-03 17:38 | CT Scan Report ---
CT SCAN OF THE ABDOMEN AND PELVIS WITHOUT IV CONTRAST CLINICAL HISTORY: Vomiting. COMPARISON STUDY: Abdominal CT dated 06/29/2020 TECHNIQUE: CT scan of the abdomen and pelvis is performed from the lung bases to the proximal femora. Images are reviewed in the axial, sagittal, and coronal planes. IV contrast was not administered for this examination. Note that the examination was performed in suboptimal fashion without oral and IV contrast. A dose lowering technique was utilized adhering to the principles of ALARA. The examination is degraded by large body habitus, and by streak artifact from the body wall abutting the CT gantry. There is also streak artifact from the arms which could not be elevated above the abdomen. CT DOSE: 1942.38 mGy.cm FINDINGS: Lung bases: The heart is normal in size and without pericardial effusion. The coronary arteries are d ensely calcified. The lung bases are clear noting bibasilar scarring/atelectasis. Liver: The unenhanced liver is mildly enlarged measuring 18 cm in length. The liver demonstrates diff usely diminished attenuation indicating steatosis. There is no intrahepatic biliary ductal dilatation . Gallbladder: Surgically absent noting clips in the gallbladder fossa. Spleen: Normal in size and attenuation. Pancreas: The unenhanced pancreas is moderately atrophic and grossly unremarkable. Adrenal glands: Unremarkable. Kidneys: The unenhanced kidneys demonstrate mild cortical atrophy and are without hydronephrosis. An extrarenal pelvis is seen on the right. There are no renal calculi identified. There is no evidence o f contour deforming renal mass lesion. Abdominal vasculature: The abdominal aorta is normal in course and caliber noting mild atheroscleroti c calcification. Bowel: There is no bowel obstruction. The appendix is well-visualized and normal. Peritoneum: There is no intraperitoneal free air or abdominal ascites. There is a small fat-containin g umbilical hernia. Lymphadenopathy: None. Pelvic viscera: Evaluation of the pelvis is degraded by streak artifact from a right hip arthroplasty . The bladder wall is thickened and there is pericystic inflammation. The outside uterine fibroids. N o adnexal lesion is seen. Skeletal structures: The skeletal structures are osteopenic. There is mild lumbosacral spondylosis. A right hip arthroplasty is in place. There is avascular necrosis of the left femoral head. No lytic o r blastic lesions are seen. IMPRESSION: 1. There is evidence of cystitis. Correlate with clinical findings and urinalysis. 2. Hepatomegaly and hepatic steatosis. 3. 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 4. Additional findings as above. ACT 112: Negative or not required by law. Electronically signed by: Renaldo Leong M.D. 06/03/2023 5:36 PM
[2023-06-03 18:25] LABS: Appearance Urine Turbid (Clear); Bacteria Urine Automated 2+ (Negative); Bilirubin Urine Negative (Negative); Blood Urine 3+ (Negative); Color Urine Dark Yellow; Epithelial Cell Urine Auto >30 /lpf (0-5); Glucose Urine UA Negative (Negative); Ketones Urine Trace (Negative); Leukocyte Esterase Urine 3+ (Negative); Nitrite Urine Positive (Negative); Protein Urine 2+ (Negative); Specific Gravity Urine 1.018 (1.000-1.030); Urobilinogen Urine Negative (Negative); WBC Urine Automated >30 /hpf (0-5)
[2023-06-03] MEDS ORDERED: levoFLOXacin/D5W 500 MG/100 ML BAG IV STA (20:07)
--- NOTE | 2023-06-03 20:16 | CT Scan Report ---
CT SCAN OF THE BRAIN WITHOUT IV CONTRAST CLINICAL HISTORY: Vomiting. Generalized weakness. COMPARISON STUDY: CT of the brain dated 10/23/2020. TECHNIQUE: Unenhanced axial CT scan of the brain is performed from the vertex to the skull base. A do se lowering technique was utilized adhering to the principles of ALARA. CT DOSE: 547.75 mGy.cm FINDINGS: Brain parenchyma: Right frontal encephalomalacia is unchanged. There is age related involutional fuentes ge noting advanced confluent subcortical and periventricular microangiopathic disease. There is no he morrhage, mass effect, or evidence of acute territorial ischemia by CT criteria. Watkins-white matter di fferentiation is preserved. No extra-axial fluid collection is seen. Ventricles, sulci, cisterns: Prominent secondary to involutional change. Intracranial vasculature: There is atherosclerotic calcification of the cavernous carotid arteries. Calvarium: Postsurgical changes noted on the right posterior convexity. There is a right frontal desiree hole. Sinuses and mastoids: The visualized paranasal sinuses are clear. The mastoid air cells are well pneu matized. Orbits: The bony orbits are grossly intact. There are bilateral ocular lens implants. IMPRESSION: Chronic and postsurgical changes as above with no hemorrhage, mass effect, or evidence of acute territorial ischemia by CT criteria. ACT 112: Negative or not required by law. Electronically signed by: Renaldo Leong M.D. 06/03/2023 8:14 PM
--- NOTE | 2023-06-03 20:47 | History & Physical Report ---
Date of Service June 03, 2023 Assessment & Plan (1) Sepsis due to urinary tract infection: (2) Sinus tachycardia: (3) Encephalopathy: (4) Confusion and disorientation: (5) Vomiting: (6) Elevated troponin: (7) Generalized weakness: (8) Dehydration, moderate: (9) Esophageal reflux: Plan Sepsis due to UTI/encephalopathy/moderate dehydration/generalized weakness/confusion- Follow urine culture and sensitivity Follow blood culture and sensitivity NPO due to encephalopathy and significant dehydration Continue empiric levofloxacin 500 mg IV daily, with history of anaphylaxis to penicillins 04/23/2023 UTI with 2 species of E. coli, pansensitive 06/05/2021 UTI with Proteus mirabilis, pansensitive to all but Bactrim 04/27/2021 UTI with ESBL E. coli, sensitive to levofloxacin and others Status post 1 L normal saline bolus in the ED NSS + KCl 20 mill equivalents at 100 mL/h x 2 liters Vomiting likely secondary to encephalopathy associated with UTI CT scan abdomen pelvis shows cystitis GERD/hepatomegaly/hepatic steatosis- Change pantoprazole to 40 mg IV daily due to n.p.o. status Elevated troponin- Initial troponin 52.1, with follow-up 57.8 Likely type II, supply/demand mismatch The patient will be admitted to telemetry for serial cardiac enzymes, serial EKG's, cardiac rhythm monitoring Orthopedics- Right total hip arthroplasty confirmed in position on CT Avascular necrosis of left proximal femur noted. Need to address further when patient is more alert CODE STATUS: Full code as noted on POLST History of Present Illness Chief Complaint: The patient was referred from [facility] due to report of vomiting when she first awoke this morning, and for a total of 4 times throughout the day today Primary Care Provider: [facility] The patient is a 77-year-old female with a past medical history including right shoulder rotator cuff arthropathy, urinary tract infection, previous COVID-19 infection, brain tumor, esophageal reflux, metastatic large cell and lymphoma in remission. She presents to the emergency department with a cute onset of nausea vomiting this morning, with a total of 4 episodes. She has had generalized weakness, feels dehydrated with mouth being very dry, but denies abdominal pain. Physical examination, and CT scan abdomen pelvis are consistent with sepsis secondary to cystitis/UTI, and is referred to the hospitalist service for admission and treatment Allergies Allergy/AdvReac Type Severity Reaction Status Date / Time Penicillins Allergy Severe Anaphylaxis Verified 06/03/23 16:20 pollen extracts Allergy Intermediate ITCHY Verified 06/03/23 16:20 EYES, SNEEZING, CONGESTION BASE METALS Allergy Mild Rash Uncoded 06/03/23 16:20 Home Medications Medication Instructions Recorded Confirmed Type atorvastatin 20 mg tablet 20 mg PO HS 11/10/18 06/03/23 History gabapentin 100 mg capsule 100 mg PO BID 12/05/19 06/03/23 History pantoprazole 40 mg tablet,delayed 40 mg PO DAILY 12/05/19 06/03/23 History release acetaminophen 325 mg tablet 650 mg PO Q6H PRN PAIN/FEVER 06/03/23 06/03/23 History (Tylenol) nystatin 100,000 unit/gram topical 1 applic topical BID 06/03/23 06/03/23 History powder potassium chloride 20 mEq 40 meq PO BIDM 06/03/23 06/03/23 History tablet,extended release promethazine 25 mg tablet 25 mg PO Q6H PRN NAUSEA/VOMITING 06/03/23 06/03/23 History Past Med/Surg History Medical History (Updated 06/03/23 @ 22:30 by Gagandeep Hoffman MD) Brain tumor Lymphoma in remission Large cell lymphoma, lymph nodes of head, face, and neck Esophageal reflux Surgical History S/P hip replacement Family History Other Cancer Heart disease Social History Smoking Status: Never smoker Tobacco Type: Cigarettes Second Hand Exposure: No; Do You Dip or Chew Tobacco: No; Hx Alcohol Use: No Hx Substance Use: No Preferred Language: [place] Communication Ability: Effective Splicing Technician Required: No Beliefs That Will Affect Care: None marital status: Current Living Situation: Spouse current occupational status: retired Feels Safe at Home: Yes Assistive Devices: Walker Review of Systems Review of Systems: The patient denies chest pain, palpitations, shortness of breath, dyspnea on exertion, cough, lower extremity swelling, fevers, chills, sweats, diarrhea , constipation, abdominal pain, pelvic pain, blood in urine or stool, dysuria, urinary frequency or urgency, memory loss, loss of consciousness, rash, abnormal bruising or bleeding, imbalance, focal weakness, numbness or tingling in arms or legs, generalized arthralgias or myalgias, back or neck pain, or night sweats. The review of systems is otherwise negative other than for that already noted above, and at least 10 systems have been reviewed. Physical Exam Physical Exam: The patient is awake, alert and oriented 3, somewhat lethargic but responds to questions well, normocephalic and atraumatic, lying in bed and in no acute distress. HEENT--PERRL, EOMI, mucous membranes and oropharynx moderately dry. Neck--supple. No JVD. No bruits. Thyroid normal, trachea midline, no adenopathy. Heart--normal S1 and S2. No murmurs, rubs or gallops. Lungs--clear bilaterally, no respiratory distress, no accessory muscle use. Abdomen--normal bowel sounds and soft. Nontender. Nondistended. Morbidly obese Extremities--no cyanosis or clubbing. No edema. Dermatologic--skin is dry Neurologic--cranial nerves II through XII grossly intact. Rheumatologic--limited exam due to fatigue and lethargy Psychiatric--normal affect. Results & Data Results & Data Vital Signs (Past 12 Hours) Vital Signs Temp Pulse Resp BP Pulse Ox O2 Del Method 06/03/23 18:20 16 115/57 L 93 06/03/23 17:00 113 H 22 104/66 98 06/03/23 15:30 120 H 23 115/61 99 06/03/23 15:00 119 H 18 116/69 98 06/03/23 14:55 120 H 06/03/23 14:47 120 H 20 95 Room Air 06/03/23 14:47 36.5 C 120 H 18 103/62 92 Room Air Laboratory Results Laboratory Results WBC 13.80 K/ul (4.8-10.8) H 06/03/23 14:52 RBC 3.50 M/uL (4.20-5.40) L 06/03/23 14:52 Hgb 11.1 g/dl (12.0-16.0) L 06/03/23 14:52 Hct 36.5 % (37.0-47.0) L 06/03/23 14:52 MCV 104.3 fL (80.0-100.0) H 06/03/23 14:52 MCH 31.7 pg (25.0-34.0) 06/03/23 14:52 MCHC 30.4 g/dL (32.0-36.0) L 06/03/23 14:52 RDW Std Deviation 60.4 fL (36.4-46.3) H 06/03/23 14:52 RDW Coeff of Lizette 15.8 % (11.5-14.5) H 06/03/23 14:52 Plt Count 116 K/uL (130-400) L 06/03/23 14:52 MPV 10.6 fL (9.4-12.4) 06/03/23 14:52 Immature Gran % (Auto) 1.5 % 06/03/23 14:52 Neut % (Auto) 93.3 % 06/03/23 14:52 Lymph % (Auto) 3.3 % 06/03/23 14:52 [place] % (Auto) 1.4 % 06/03/23 14:52 Eos % (Auto) 0.1 % 06/03/23 14:52 Baso % (Auto) 0.4 % 06/03/23 14:52 Neut # (Auto) 12.89 K/uL (1.40-6.50) H 06/03/23 14:52 Lymph # (Auto) 0.45 K/uL (1.20-3.40) L 06/03/23 14:52 [place] # (Auto) 0.19 K/uL (0.11-0.59) 06/03/23 14:52 Eos # (Auto) 0.01 K/uL (0.00-0.50) 06/03/23 14:52 Baso # (Auto) 0.05 K/uL (0.00-0.20) 06/03/23 14:52 Immature Gran # (Auto) 0.21 K/uL (0.01-0.20) H 06/03/23 14:52 Absolute Nucleated RBC 0.03 K/uL (0.00-0.12) 06/03/23 14:52 Nucleated RBC % (auto) 0.2 % 06/03/23 14:52 Toxic Vacuolation 1+ 06/03/23 14:52 Polychromasia 1+ 06/03/23 14:52 Tear Drop Cells 1+ 06/03/23 14:52 Echinocytes 1+ 06/03/23 14:52 Sodium 141 mmol/L (136-145) 06/03/23 14:52 Potassium 4.0 mmol/L (3.5-5.1) 06/03/23 14:52 Chloride 108 mmol/L (98-107) H 06/03/23 14:52 Carbon Dioxide 22 mmol/L (21-32) 06/03/23 14:52 Anion Gap 11 (3-11) 06/03/23 14:52 BUN 19 mg/dl (6-23) 06/03/23 14:52 Creatinine 1.05 mg/dl (0.6-1.2) 06/03/23 14:52 Est Cr Clr Drug Dosing 56.2 ml/min 06/03/23 14:52 Est GFR ( Amer) 59.3 ml/min 06/03/23 14:52 Est GFR (Non-Af Amer) 51.2 ml/min 06/03/23 14:52 BUN/Creatinine Ratio 18.1 (10-20) 06/03/23 14:52 Glucose 88 mg/dl (70-99(Fasting)) 06/03/23 14:52 Calcium 8.4 mg/dl (8.6-10.3) L 06/03/23 14:52 Magnesium 1.7 mg/dl (1.7-2.4) 06/03/23 14:52 Total Bilirubin 1.2 mg/dl (0.2-1.0) H 06/03/23 14:52 AST 28 U/L (13-39) 06/03/23 14:52 ALT 24 U/L (7-52) 06/03/23 14:52 Alkaline Phosphatase 158 U/L (34-104) H 06/03/23 14:52 Troponin I High Sens 57.8 pg/ml (0-14) H* 06/03/23 16:53 Total Protein 6.3 gm/dl (6.0-8.3) 06/03/23 14:52 Albumin 3.3 gm/dl (3.4-5.0) L 06/03/23 14:52 Globulin 3.0 gm/dl (2.5-4.0) 06/03/23 14:52 Albumin/Globulin Ratio 1.1 (0.9-2) 06/03/23 14:52 Urine Color Dark Yellow 06/03/23 18:06 Urine Appearance Turbid (Clear) A 06/03/23 18:06 Urine pH 5.0 (4.5-7.5) 06/03/23 18:06 Ur Specific [place] 1.018 (1.000-1.030) 06/03/23 18:06 Urine Protein 2+ (Negative) H 06/03/23 18:06 Urine Glucose (UA) Negative (Negative) 06/03/23 18:06 Urine Ketones Trace (Negative) H 06/03/23 18: Urine Blood 3+ (Negative) H 06/03/23 18: Urine Nitrite Positive (Negative) A 06/03/23 18: Urine Bilirubin Negative (Negative) 06/03/23 18: Urine Urobilinogen Negative (Negative) 06/03/23 18:06 Ur Leukocyte Esterase 3+ (Negative) H 06/03/23 18:06 Urine WBC (Auto) >30 /hpf (0-5) H 06/03/23 18:06 Urine RBC (Auto) 10-30 /hpf (0-4) H 06/03/23 18:06 U Hyaline Cast (Auto) 1-5 /lpf (0-5) 06/03/23 18:06 U Epithel Cells (Auto) >30 /lpf (0-5) H 06/03/23 18:06 Urine Bacteria (Auto) 2+ (Negative) H 06/03/23 18:06 Urine Yeast Not Reportable 06/03/23 18:06 Adenovirus (PCR) Not Detected (NotDetected) 06/03/23 14:52 B. pertussis DNA (PCR) Not Detected (NotDetected) 06/03/23 14:52 B.parapertussis DNA PCR Not Detected (NotDetected) 06/03/23 14:52 C. pneumoniae DNA (PCR) Not Detected (NotDetected) 06/03/23 14:52 Coronavirus OC43 (PCR) Not Detected (NotDetected) 06/03/23 14:52 Coronavirus HKU1 (PCR) Not Detected (NotDetected) 06/03/23 14:52 Coronavirus 229E (PCR) Not Detected (NotDetected) 06/03/23 14:52 SARS-CoV-2 (PCR) Not Detected (NotDetected) 06/03/23 14:52 Coronavirus NL63 (PCR) Not Detected (NotDetected) 06/03/23 14:52 Human Metapneumovir PCR Not Detected (NotDetected) 06/03/23 14:52 Influenza Type A (PCR) Not Detected (NotDetected) 06/03/23 14:52 Influenza Type B (PCR) Not Detected (NotDetected) 06/03/23 14:52 M. pneumoniae (PCR) Not Detected (NotDetected) 06/03/23 14:52 Parainfluenza 1 (PCR) Not Detected (NotDetected) 06/03/23 14:52 Parainfluenza 2 (PCR) Not Detected (NotDetected) 06/03/23 14:52 Parainfluenza 3 (PCR) Not Detected (NotDetected) 06/03/23 14:52 Parainfluenza 4 (PCR) Not Detected (NotDetected) 06/03/23 14:52 RSV (PCR) Not Detected (NotDetected) 06/03/23 14:52 Entero/Rhino (PCR) Not Detected (NotDetected) 06/03/23 14:52 Impressions Chest X-Ray 06/03/23 14:36 SINGLE VIEW CHEST CLINICAL HISTORY: Generalized weakness. Vomiting. FINDINGS: An AP, portable, upright chest radiograph is compared to study dated 10/23/2020. Correlation is made with chest CT dated 10/10/2016. The examination is degraded by portable technique comment large body habitus, and patient rotation. Surgical clips are noted in the left lower neck. The heart is mildly enlarged. There is pulmonary vascular congestion. There is mild elevation of the right hemidiaphragm with bibasilar atelectasis. No airspace consolidation or large pleural effusion is identified. No pneumothorax is seen. The skeletal structures are osteopenic. The bony thorax is grossly intact. Cholecystectomy clips are noted in the right upper quadrant. IMPRESSION: Cardiomegaly with mild pulmonary vascular congestion. ACT 112: Negative or not required by law. Electronically signed by: Renaldo Leong M.D. 06/03/2023 3:29 PM Abdomen/Pelvis CT 06/03/23 17:06 CT SCAN OF THE ABDOMEN AND PELVIS WITHOUT IV CONTRAST CLINICAL HISTORY: Vomiting. COMPARISON STUDY: Abdominal CT dated 06/29/2020 TECHNIQUE: CT scan of the abdomen and pelvis is performed from the lung bases to the proximal femora. Images are reviewed in the axial, sagittal, and coronal planes. IV contrast was not administered for this examination. Note that the examination was performed in suboptimal fashion without oral and IV contrast. A dose lowering technique was utilized adhering to the principles of ALARA. The examination is degraded by large body habitus, and by streak artifact from the body wall abutting the CT gantry. There is also streak artifact from the arms which could not be elevated above the abdomen. CT DOSE: 1942.38 mGy.cm FINDINGS: Lung bases: The heart is normal in size and without pericardial effusion. The coronary arteries are densely calcified. The lung bases are clear noting bibasilar scarring/atelectasis. Liver: The unenhanced liver is mildly enlarged measuring 18 cm in length. The liver demonstrates diffusely diminished attenuation indicating steatosis. There is no intrahepatic biliary ductal dilatation. Gallbladder: Surgically absent noting clips in the gallbladder fossa. Spleen: Normal in size and attenuation. Pancreas: The unenhanced pancreas is moderately atrophic and grossly unremarkable. Adrenal glands: Unremarkable. Kidneys: The unenhanced kidneys demonstrate mild cortical atrophy and are without hydronephrosis. An extrarenal pelvis is seen on the right. There are no renal calculi identified. There is no evidence of contour deforming renal mass lesion. Abdominal vasculature: The abdominal aorta is normal in course and caliber noting mild atherosclerotic calcification. Bowel: There is no bowel obstruction. The appendix is well-visualized and normal. Peritoneum: There is no intraperitoneal free air or abdominal ascites. There is a small fat-containing umbilical hernia. Lymphadenopathy: None. Pelvic viscera: Evaluation of the pelvis is degraded by streak artifact from a right hip arthroplasty. The bladder wall is thickened and there is pericystic inflammation. The outside uterine fibroids. No adnexal lesion is seen. Skeletal structures: The skeletal structures are osteopenic. There is mild lumbosacral spondylosis. A right hip arthroplasty is in place. There is avascular necrosis of the left femoral head. No lytic or blastic lesions are seen. IMPRESSION: 1. There is evidence of cystitis. Correlate with clinical findings and urinalysis. 2. Hepatomegaly and hepatic steatosis. 3. 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 4. Additional findings as above. ACT 112: Negative or not required by law. Electronically signed by: Renaldo Leong M.D. 06/03/2023 5:[address] 06/03/23 18:34 CT SCAN OF THE BRAIN WITHOUT IV CONTRAST CLINICAL HISTORY: Vomiting. Generalized weakness. COMPARISON STUDY: CT of the brain dated 10/23/2020. TECHNIQUE: Unenhanced axial CT scan of the brain is performed from the vertex to the skull base. A dose lowering technique was utilized adhering to the principles of ALARA. CT DOSE: 547.75 mGy.cm FINDINGS: Brain parenchyma: Right frontal encephalomalacia is unchanged. There is age related involutional change noting advanced confluent subcortical and periventricular microangiopathic disease. There is no hemorrhage, mass effect, or evidence of acute territorial ischemia by CT criteria. Watkins-white matter differentiation is preserved. No extra-axial fluid collection is seen. Ventricles, sulci, cisterns: Prominent secondary to involutional change. Intracranial vasculature: There is atherosclerotic calcification of the cavernous carotid arteries. Calvarium: Postsurgical changes noted on the right posterior convexity. There is a right frontal desiree hole. Sinuses and mastoids: The visualized paranasal sinuses are clear. The mastoid air cells are well pneumatized. Orbits: The bony orbits are grossly intact. There are bilateral ocular lens implants. IMPRESSION: Chronic and postsurgical changes as above with no hemorrhage, mass effect, or evidence of acute territorial ischemia by CT criteria. ACT 112: Negative or not required by law. Electronically signed by: Renaldo Leong M.D. 06/03/2023 8:14 PM Code Status & VTE Plan Code Status Full code, POLST VTE Prophylaxis Plan VTE Prophylaxis will be ordered: Yes PG Care Time/CCT Total # of Minutes Spent Total Time Spent with Patient: Total time spent is greater than 50% in coordination of care (as documented) at patient's floor/unit and/or counseling patient: Coding Level of Care Code 71786 INT INP/OBS CARE 3/75MIN Diagnoses Sepsis due to urinary tract infection A41.9; N39.0 Sinus tachycardia R00.0 Encephalopathy G93.40 Confusion and disorientation R41.0 Vomiting R11.10 Elevated troponin R79.89 Generalized weakness R53.1 Dehydration, moderate E86.0 Esophageal reflux K21.9
[2023-06-03] MEDS ORDERED: ONDANSETRON INJ 2 MG/ML 2 ML VIAL IV PRN (23:07)
[2023-06-03] MEDS ORDERED: ACETAMINOPHEN 1,000 MG/100 ML VIAL IV PRN (23:07)
[2023-06-04] MEDS: NSS + 20MEQ KCL 20 MEQ/1,000 ML BAG IV SCH ×2 (00:05→09:42)
[2023-06-04] MEDS: ENOXAPARIN INJ 40 MG/0.4 ML SYR SQ SCH ×3 (00:05→21:14)
[2023-06-04 06:20] LABS: Hematocrit (blood only) 29.9 % (37.0-47.0); Hemoglobin 9.2 g/dl (12.0-16.0); Mean Corpuscular Hemoglobin 32.5 pg (25.0-34.0); Mean Corpuscular Hgb Conc 30.8 g/dL (32.0-36.0); Mean Corpuscular Volume 105.7 fL (80.0-100.0); Mean Platelet Volume 10.5 fL (9.4-12.4); Platelet Count 108 K/uL (130-400); RDW Coefficient of Variation 16.1 % (11.5-14.5); RDW Standard Deviation 62.9 fL (36.4-46.3); Red Blood Count 2.83 M/uL (4.20-5.40); White Blood Count 16.78 K/ul (4.8-10.8)
[2023-06-04 06:43] LABS: Albumin Level 2.7 gm/dl (3.4-5.0); BUN Creatinine Ratio 16.3 (10-20); Bilirubin,Total 0.8 mg/dl (0.2-1.0); Calcium 7.9 mg/dl (8.6-10.3); Creatinine Clr Calc Pharmacy 44.5 ml/min; Est GFR (African American) 46.3 ml/min; Est GFR (Non-African American) 39.9 ml/min; Globulin 2.7 gm/dl (2.5-4.0); Magnesium 1.7 mg/dl (1.7-2.4); Potassium 4.8 mmol/L (3.5-5.1); Total Protein 5.4 gm/dl (6.0-8.3); Troponin I High Sensitivity 72.5 pg/ml (0-14)
[2023-06-04 06:46] LABS: Basophils # (auto) 0.06 K/uL (0.00-0.20); Basophils % (auto) 0.4 %; Dohle Bodies 1+; Echinocytes 1+; Eosinophils # (auto) 0.03 K/uL (0.00-0.50); Eosinophils % (auto) 0.2 %; Immature Granulocytes # (auto) 0.32 K/uL (0.01-0.20); Immature Granulocytes % (auto) 1.9 %; Lymphocytes # (auto) 1.45 K/uL (1.20-3.40); Lymphocytes % (auto) 8.6 %; Monocytes # (auto) 0.83 K/uL (0.11-0.59); Monocytes % (auto) 4.9 %; Neutrophils # (auto) 14.09 K/uL (1.40-6.50); Polychromasia 1+
[2023-06-04] MEDS: LACTATED RINGER'S 1,000 ML IV SCH ×2 (10:32→21:04)
[2023-06-04] MEDS ORDERED: PANTOprazole 40 MG in SYRINGE 0 ML IV SCH (11:00)
--- NOTE | 2023-06-04 11:42 | Hospitalist Progress Note ---
Date of Service June 04, 2023 Assessment & Plan (1) Sepsis due to urinary tract infection: Plan: Presented from [facility] [place] with nausea/vomiting, generalized weakness and a general feeling of being unwell. No fevers or abdominal pain. CT abdomen/pelvis with cystitis and fatty liver Urinalysis consistent with UTI No fever but had tachycardia and leukocytosis, UTI as the source of her sepsis. Blood pressures are normal Admitted and started on levofloxacin given previous history of ESBL E. coli sensitive levofloxacin and history of anaphylaxis with penicillins Feeling improved, will advance diet as tolerated-start with clears Leukocytosis has worsened at 16 but clinically she is better and remains afebrile Continue empiric levofloxacin 500 mg IV daily Follow urine culture-growing gram-negative bacilli No blood cultures were drawn prior to initiation of antibiotics She has received IV fluids and these will be continued until her p.o. intake is adequate Vomiting likely secondary to encephalopathy associated with UTI Stable for downgrade to medical/surgical unit Follow CBC, BMP (2) Encephalopathy: Plan: seems to be much improved, baseline she is conversational but confused at times (3) Vomiting: Plan: resolved, advance diet as tolerated-clears now continue IVFs until taking adequate po (4) Elevated troponin: Plan: Initial troponin 52.1, with serial trend peaking at 73 and without any chest pain. ECG with sinus tachycardia, right bundle branch block, unchanged from previous This is demand myocardial ischemia from sepsis Stable to monitor off telemetry Is on atorvastatin for hyperlipidemia (5) Generalized weakness: Plan: Secondary to sepsis, PT/OT consults placed. She does typically ambulate with a walker She has a bed hold at a care home (6) Esophageal reflux: Plan: Change IV PPI to p.o. (7) Avascular necrosis of bone of left hip: Plan: Noted on CT abdomen/pelvis Follow-up with orthopedics as an outpatient Continue gabapentin for pain control (8) CKD (chronic kidney disease) stage 3, GFR 30-59 ml/min: Plan: Creatinine up slightly today to 1.29 from 1.05 Continue IV fluids Follow BMP Avoid nephrotoxins, renally dose medications (9) Anemia: Plan: Hemoglobin lower from admission at 9.2, some dilutional effect from IV fluids Macrocytic with MCV 105 Platelets also mildly low with thrombocytopenia of 108, could be related to sepsis Check B12 and folate, iron studies, TSH Follow CBC (10) Fatty liver: Plan: Because of her elevated alkaline phosphatase Needs low carbohydrate diet Plan DVT prophylaxis-Lovenox 40 Mg SQ twice daily Disposition-downgrade from PCU to medical/surgical unit, PT/OT consults placed CODE STATUS: Full code as noted on POLST Admission and Anticipated Discharge Date Admission Date: June 03, 2023 Subjective Pt reports feeling better. Wants the heart monitor removed. Has no other compla ints except has a dry mouth and requesting gingerale. Tele with NSR, PVCs, rates in 80s Physical Exam Constitutional: WD/WN, vitals as above Neck: trachea midline, no thyromegaly Respiratory: normal respiratory effort, lungs clear to auscultation Cardiovascular: Rate/Rhythm: regular rate and regular rhythm Heart Sounds: no murmur Extremities: + edema (1+ edema legs bilat) Chest (Breasts): Chest: normal inspection of chest Gastrointestinal (Abdomen): normal bowel sounds, soft, nontender, no hepatosplenomegaly Musculoskeletal: Extremities: extremities normal to inspection; no cyanosis and no clubbing Skin: no rashes, warm and dry Neurologic: moves all extremities and awake; no focal motor deficits Psychiatric: Orientation: alert, oriented to person, oriented to place and cooperative Results & Data Results & Data Vital Signs (Past 12 Hours) Vital Signs Temp Pulse Resp BP Pulse Ox O2 Del Method 06/04/23 10:42 36.5 C 80 18 115/75 96 Room Air 06/04/23 07:45 36.7 C 76 18 108/71 96 Room Air 06/04/23 03:28 36.5 C 82 21 100/63 95 Room Air Laboratory Results CBC, BMP, troponin, LFTs reviewed PG Care Time/CCT Total # of Minutes Spent Total Time Spent with Patient: Total time spent is greater than 50% in coordination of care (as documented) at patient's floor/unit and/or counseling patient: Coding Level of Care Code 08957 SUB INP/OBS CARE 3/50MIN Diagnoses Sepsis due to urinary tract infection A41.9; N39.0 Encephalopathy G93.40 Vomiting R11.10 Elevated troponin R79.89 Generalized weakness R53.1 Esophageal reflux K21.9 Avascular necrosis of bone of left hip M87.052 CKD (chronic kidney disease) stage 3, GFR 30-59 ml/min N18.30 Anemia D64.9 Fatty liver K76.0
[2023-06-04] MEDS: ACETAMINOPHEN 325 MG TAB PO PRN ×2 (16:20→22:24)
[2023-06-04] MEDS: GABAPENTIN 100 MG CAP PO SCH (20:34)
[2023-06-04] MEDS: ATORVASTATIN 20 MG TAB PO SCH (20:34)
[2023-06-04] MEDS ORDERED: levoFLOXacin/D5W 750 MG/150 ML BAG IV SCH (21:00)
[2023-06-05] MEDS ORDERED: ACETAMINOPHEN 1,000 MG/100 ML VIAL IV STA (04:39)
[2023-06-05 06:43] LABS: Albumin Level 2.6 gm/dl (3.4-5.0); BUN Creatinine Ratio 19.2 (10-20); Bilirubin,Total 0.8 mg/dl (0.2-1.0); Calcium 7.8 mg/dl (8.6-10.3); Est GFR (African American) 63.7 ml/min; Globulin 2.5 gm/dl (2.5-4.0); Magnesium 1.7 mg/dl (1.7-2.4); Potassium 4.2 mmol/L (3.5-5.1); Total Protein 5.1 gm/dl (6.0-8.3)
[2023-06-05 07:03] LABS: Ferritin 455.8 ng/ml (8-388); Thyroid Stimulating Hormone 5.872 uIu/ml (0.300-4.500)
[2023-06-05 07:04] LABS: Folate (Folic Acid),Ser orPlas 3.55 ng/ml (>5.38)
[2023-06-05 07:40] LABS: T4 Free Thyroxine 1.07 ng/dl (0.61-1.60)
[2023-06-05] MEDS ORDERED: FOLIC ACID 1 MG in SYRINGE 9.8 ML IV STA (08:21)
[2023-06-05 08:28] LABS: Basophils # (auto) 0.04 K/uL (0.00-0.20); Basophils % (auto) 0.3 %; Dohle Bodies 1+; Eosinophils # (auto) 0.08 K/uL (0.00-0.50); Eosinophils % (auto) 0.7 %; Hemoglobin 9.8 g/dl (12.0-16.0); Immature Granulocytes % (auto) 1.7 %; Lymphocytes # (auto) 0.81 K/uL (1.20-3.40); Lymphocytes % (auto) 6.9 %; Mean Corpuscular Hemoglobin 31.7 pg (25.0-34.0); Mean Corpuscular Hgb Conc 30.6 g/dL (32.0-36.0); Mean Corpuscular Volume 103.6 fL (80.0-100.0); Mean Platelet Volume 10.7 fL (9.4-12.4); Monocytes # (auto) 0.55 K/uL (0.11-0.59); Monocytes % (auto) 4.7 %; Neutrophils # (auto) 10.04 K/uL (1.40-6.50); Neutrophils % (auto) 85.7 %; Platelet Count 92 K/uL (130-400); Platelet Estimate Decreased (Normal); Polychromasia 1+; RDW Coefficient of Variation 15.9 % (11.5-14.5); RDW Standard Deviation 61.1 fL (36.4-46.3); Red Blood Count 3.09 M/uL (4.20-5.40); Toxic Granulation 1+; White Blood Count 11.72 K/ul (4.8-10.8)
[2023-06-05] MEDS: ENOXAPARIN INJ 40 MG/0.4 ML SYR SQ SCH ×2 (09:29→19:40)
[2023-06-05] MEDS: ERTAPENEM SODIUM 1,000 MG in SYRINGE 0 ML IV SCH (09:30)
[2023-06-05] MEDS: PANTOprazole 40 MG TAB PO SCH (09:30)
[2023-06-05] MEDS: GABAPENTIN 100 MG CAP PO SCH ×2 (09:30→19:39)
--- NOTE | 2023-06-05 13:25 | Hospitalist Progress Note ---
Date of Service June 05, 2023 Assessment & Plan (1) Sepsis due to urinary tract infection: Plan: Presented from [facility] with nausea/vomiting, generalized weakness and a general feeling of being unwell. No fevers or abdominal pain. CT abdomen/pelvis with cystitis and fatty liver Urinalysis consistent with UTI Blood cultures not collected on admission With tachycardia and leukocytosis, UTI as the source of her sepsis. Blood pressures are normal Admitted and started on levofloxacin given previous history of ESBL E. coli sensitive levofloxacin and history of anaphylaxis with penicillins Leukocytosis improving, remains afebrile Urine culture with ESBL E. coli now resistant to levofloxacin-change antibiotics to IV ertapenem and recommend 7-day course through 06/11 Nausea/vomiting resolved-advance diet to regular DC IV fluids Vomiting likely secondary to encephalopathy associated with UTI Follow CBC, BMP (2) Encephalopathy: Plan: seems to be much improved, baseline she is conversational but confused at times, talks to herself frequently (3) Vomiting: Plan: resolved, advance diet to regular and DC IV fluids (4) Elevated troponin: Plan: Initial troponin 52.1, with serial trend peaking at 73 and without any chest pain. ECG with sinus tachycardia, right bundle branch block, unchanged from previous This is demand myocardial ischemia from sepsis Stable to monitor off telemetry Is on atorvastatin for hyperlipidemia (5) Generalized weakness: Plan: Secondary to sepsis, PT/OT consults placed. She does typically ambulate with a walker She is a bed hold at a snf (6) Esophageal reflux: Plan: Continue Protonix (7) Avascular necrosis of bone of left hip: Plan: Noted on CT abdomen/pelvis. She denies any pain in the hips Follow-up with orthopedics as an outpatient if desired but she is mostly wheelchair-bound Continue gabapentin for pain control Add Voltaren gel to right shoulder for chronic pain (8) CKD (chronic kidney disease) stage 3, GFR 30-59 ml/min: Plan: Creatinine at baseline 0.99 Follow BMP Avoid nephrotoxins, renally dose medications (9) Anemia: Plan: Hemoglobin 9.8, some dilutional effect from IV fluids Macrocytic with MCV 105 Also with mild thrombocytopenia at 92, could be related to sepsis B12 normal, TSH mildly elevated with normal free T4 Folate is quite low at 3.5-replace with folic acid 1 mg p.o. daily Iron studies show anemia of chronic disease Follow CBC (10) Fatty liver: Plan: Is the cause of her elevated alkaline phosphatase Needs low carbohydrate diet, weight loss Plan DVT prophylaxis-Lovenox 40 Mg SQ twice daily Disposition-continued stay and medical/surgical unit, improving, PT/OT consults placed but she is reportedly wheelchair-bound and [facility] Plan to return to [facility] at discharge. Will need ultrasound-guided peripheral IV to finish out 7-day course of ertapenem Called her on 06/05 and left a voicemail CODE STATUS: Full code as noted on [facility] Admission and Anticipated Discharge Date Admission Date: June 03, 2023 Subjective Patient confused but reports right shoulder pain, otherwise mutters to herself frequently. Denies shortness of breath or abdominal pain. She thinks she is eating. Physical Exam Constitutional: WD/WN, vitals as above + morbidly obese Neck: trachea midline, no thyromegaly Respiratory: normal respiratory effort, lungs clear to auscultation Cardiovascular: Rate/Rhythm: regular rate and regular rhythm Heart Sounds: no murmur Extremities: + edema (1+ edema legs bilat) Chest (Breasts): Chest: normal inspection of chest Gastrointestinal (Abdomen): normal bowel sounds, soft, nontender, no hepatosplenomegaly Musculoskeletal: Extremities: + extremities abnormal to inspection (Right shoulder appears permanently dislocated), no cyanosis and no clubbing Skin: no rashes, warm and dry Neurologic: moves all extremities and awake; no focal motor deficits Psychiatric: Orientation: alert, oriented to person, oriented to place and cooperative Results & Data Results & Data Vital Signs (Past 12 Hours) Vital Signs Temp Pulse Resp BP Pulse Ox O2 Del Method 06/05/23 07:17 36.7 C 89 18 153/88 H 94 Room Air Laboratory Results CBC, BMP, TSH, free T4, iron studies, B12, folate, LFTs reviewed Urine culture reviewed PG Care Time/CCT Total # of Minutes Spent Total Time Spent with Patient: Total time spent is greater than 50% in coordination of care (as documented) at patient's floor/unit and/or counseling patient: Coding Level of Care Code 74958 SUB INP/OBS CARE 3/50MIN Diagnoses Sepsis due to urinary tract infection A41.9; N39.0 Encephalopathy G93.40 Vomiting R11.10 Elevated troponin R79.89 Generalized weakness R53.1 Esophageal reflux K21.9 Avascular necrosis of bone of left hip M87.052 CKD (chronic kidney disease) stage 3, GFR 30-59 ml/min N18.30 Anemia D64.9 Fatty liver K76.0
[2023-06-05] MEDS: DICLOFENAC SOD 1% GEL 100 GM TUBE EXT SCH ×3 (14:31→19:40)
--- NOTE | 2023-06-05 19:29 | Electrocardiogram Report ---
Test Reason : Blood Pressure : / mmHG Vent. Rate : 122 BPM Atrial Rate : 122 BPM P-R Int : 192 ms QRS Dur : 130 ms QT Int : 328 ms P-R-T Axes : 008 -39 112 degrees QTc Int : 467 ms Sinus tachycardia Left axis deviation Left bundle branch block Abnormal ECG When compared with ECG of 23-OCT-2020 13:34, Vent. rate has increased BY 65 BPM Confirmed by Juancarlos Grullon ([id number]) on 06/05/2023 7:28:49 PM Referred By: [facility] Confirmed By:Juancarlos Grullon
[2023-06-05] MEDS: ACETAMINOPHEN 325 MG TAB PO PRN (19:39)
[2023-06-05] MEDS: ATORVASTATIN 20 MG TAB PO SCH (19:41)
[2023-06-06 07:05] LABS: Basophils # (auto) 0.01 K/uL (0.00-0.20); Basophils % (auto) 0.1 %; Eosinophils # (auto) 0.01 K/uL (0.00-0.50); Eosinophils % (auto) 0.1 %; Hematocrit (blood only) 32.6 % (37.0-47.0); Hemoglobin 9.8 g/dl (12.0-16.0); Immature Granulocytes # (auto) 0.07 K/uL (0.01-0.20); Immature Granulocytes % (auto) 0.9 %; Lymphocytes # (auto) 0.73 K/uL (1.20-3.40); Lymphocytes % (auto) 9.3 %; Mean Corpuscular Hemoglobin 31.5 pg (25.0-34.0); Mean Corpuscular Hgb Conc 30.1 g/dL (32.0-36.0); Mean Corpuscular Volume 104.8 fL (80.0-100.0); Mean Platelet Volume 11.1 fL (9.4-12.4); Monocytes # (auto) 0.39 K/uL (0.11-0.59); Neutrophils # (auto) 6.62 K/uL (1.40-6.50); Neutrophils % (auto) 84.6 %; Platelet Count 88 K/uL (130-400); RDW Coefficient of Variation 15.9 % (11.5-14.5); RDW Standard Deviation 60.7 fL (36.4-46.3); Red Blood Count 3.11 M/uL (4.20-5.40); White Blood Count 7.83 K/ul (4.8-10.8)
[2023-06-06 07:36] LABS: Albumin Globulin Ratio 0.9 (0.9-2); Albumin Level 2.5 gm/dl (3.4-5.0); BUN Creatinine Ratio 15.5 (10-20); Bilirubin,Total 0.5 mg/dl (0.2-1.0); Creatinine Clr Calc Pharmacy 44.5 ml/min; Est GFR (African American) 46.3 ml/min; Est GFR (Non-African American) 39.9 ml/min; Globulin 2.8 gm/dl (2.5-4.0); Magnesium 1.8 mg/dl (1.7-2.4); Potassium 3.8 mmol/L (3.5-5.1); Total Protein 5.3 gm/dl (6.0-8.3)
[2023-06-06] MEDS: ERTAPENEM SODIUM 1,000 MG in SYRINGE 0 ML IV SCH (08:08)
[2023-06-06] MEDS: GABAPENTIN 100 MG CAP PO SCH (08:40)
[2023-06-06] MEDS: DICLOFENAC SOD 1% GEL 100 GM TUBE EXT SCH ×4 (08:40→21:52)
[2023-06-06] MEDS: PANTOprazole 40 MG TAB PO SCH (08:40)
[2023-06-06] MEDS: FOLIC ACID 1 MG TAB PO SCH (08:40)
[2023-06-06] MEDS: ENOXAPARIN INJ 40 MG/0.4 ML SYR SQ SCH ×2 (08:40→21:52)
[2023-06-06 12:05] LABS: Allen Test Pos (Pos); Base Excess ABG -2.5 mEq/L (-9-1.8); HCO3 ABG 23 mmol/L (19-24); Oxygen Saturation ABG 98.8 % (90-95); PCO2 ABG 39 mmHg (35-46); PO2 ABG 142 mmHg (80-95); pH ABG 7.37 (7.35-7.45)
--- NOTE | 2023-06-06 12:14 | XRay Report ---
SINGLE VIEW CHEST CLINICAL HISTORY: Lethargy. FINDINGS: 2 AP, portable, upright chest radiographs are compared to study dated 124. Correlation is m cornelia with chest CT dated 10/10/2016. The examination is degraded by portable technique, large body habi tus, and patient rotation. Surgical clips are noted in the left lower neck. The heart is mildly enla rged. There is pulmonary vascular congestion. There is mild elevation of the right hemidiaphragm with bibasilar atelectasis. No airspace consolidation or large pleural effusion is identified. No pneumot horax is seen. The skeletal structures are osteopenic. The bony thorax is grossly intact. Cholecystec pearl clips are noted in the right upper quadrant. IMPRESSION: Cardiomegaly with mild pulmonary vascular congestion. No significant change from 06/03/2023 . ACT 112: Negative or not required by law. Electronically signed by: Renaldo Leong M.D. 06/06/2023 12:13 PM
[2023-06-06] MEDS: FERROUS GLUCONATE 324 MG TAB PO SCH (16:43)
--- NOTE | 2023-06-06 17:39 | Hospitalist Progress Note ---
Date of Service June 06, 2023 Assessment & Plan (1) Sepsis due to urinary tract infection: Plan: ESBL E. coli isolated in the urine. She is now on intravenous ertapenem through June 11. CT abdomen/pelvis with cystitis and fatty liver (2) Encephalopathy: Plan: Acute combined toxic and metabolic encephalopathy present on admission. Gabapentin has been discontinued. Continue to treat UTI. No evidence of CO2 narcosis on ABGs. (3) Elevated troponin: Plan: Probable supplydemand mismatch. No evidence of acute coronary syndrome. (4) Generalized weakness: Plan: Secondary to sepsis. PT/OT consults placed. She does typically ambulate with a walker (5) Esophageal reflux: Plan: Stable. Continue Protonix (6) Avascular necrosis of bone of left hip: Plan: Noted on CT abdomen/pelvis. She denies any pain in the hips. Follow-up with orthopedics as an outpatient if desired but she is mostly wheelchair-bound. Gabapentin is temporarily on hold. (7) CKD (chronic kidney disease) stage 3, GFR 30-59 ml/min: Plan: Monitor intake and output. Serial labs (8) Anemia: Plan: Macrocytic. Low levels of folic acid noted. She is now on folic acid supplementation. No overt evidence of blood loss. She is not iron deficient Plan Anticipate eventual return to [facility]. Will request consent for midline IV placement when she is more alert. She will remain on parenteral ertapenem through June 11. Admission and Anticipated Discharge Date Admission Date: June 03, 2023 Subjective The patient is lethargic. Stat ABGs are negative for CO2 narcosis. This may be medication related. Gabapentin has been discontinued. She is now on parenteral Lasix therapy to ensure dry lungs. Ertapenem has been recommended through June 11. She will need midline IV placed if she returns to [facility] before then. Review of Systems 2 Review of Systems: The patient is unable to answer any questions regarding review of systems at this time Physical Exam 2 Physical Exam: General-lethargic. Nonverbal . Morbidly obese HEENT-head atraumatic and normocephalic, pupils equal and reactive to light, extraocular muscles intact Neck-no lymphadenopathy or thyromegaly, trachea midline Chest-diminished breath sounds bilaterally. No wheezing or rhonchi Cardiac-regular rate and rhythm, normal S1 and S2 Abdomen-normal bowel sounds, no hepatosplenomegaly Extremities-chronic appearing bilateral lower extremity edema below the knees Neuro-lethargic. Cannot assess Psych-lethargic cannot assess Results & Data Results & Data Vital Signs (Past 12 Hours) Vital Signs Temp Pulse Resp BP Pulse Ox O2 Del Method O2 Flow Rate 06/06/23 15:40 36.8 C 66 18 110/70 93 Room Air 06/06/23 14:42 16 95 Room Air 06/06/23 13:40 61 16 99 Nasal Cannula 1 06/06/23 07:38 36.4 C L 76 16 100/69 98 Room Air 06/06/23 07:37 Room Air Laboratory Results 06/06/23 06:30 06/06/23 06:30 PG Care Time/CCT Total # of Minutes Spent Total Time Spent with Patient: Total time spent is greater than 50% in coordination of care (as documented) at patient's floor/unit and/or counseling patient: Coding Level of Care Code 84500 SUB INP/OBS CARE 3/50MIN Diagnoses Sepsis due to urinary tract infection A41.9; N39.0 Encephalopathy G93.40 Elevated troponin R79.89 Generalized weakness R53.1 Esophageal reflux K21.9 Avascular necrosis of bone of left hip M87.052 CKD (chronic kidney disease) stage 3, GFR 30-59 ml/min N18.30 Anemia D64.9
[2023-06-06] MEDS: ATORVASTATIN 20 MG TAB PO SCH (21:51)
[2023-06-06] MEDS: FUROSEMIDE 40 MG/4 ML VIAL IV SCH (21:51)
[2023-06-07 07:00] LABS: BUN Creatinine Ratio 18.5 (10-20); Calcium 8.1 mg/dl (8.6-10.3); Creatinine Clr Calc Pharmacy 46.3 ml/min; Est GFR (African American) 48.5 ml/min; Est GFR (Non-African American) 41.9 ml/min; Potassium 3.1 mmol/L (3.5-5.1)
[2023-06-07 07:21] LABS: Basophils # (auto) 0.03 K/uL (0.00-0.20); Basophils % (auto) 0.6 %; Eosinophils # (auto) 0.04 K/uL (0.00-0.50); Eosinophils % (auto) 0.7 %; Hematocrit (blood only) 34.9 % (37.0-47.0); Hemoglobin 10.8 g/dl (12.0-16.0); Immature Granulocytes # (auto) 0.06 K/uL (0.01-0.20); Immature Granulocytes % (auto) 1.1 %; Lymphocytes # (auto) 0.91 K/uL (1.20-3.40); Lymphocytes % (auto) 16.9 %; Mean Corpuscular Hemoglobin 31.9 pg (25.0-34.0); Mean Corpuscular Hgb Conc 30.9 g/dL (32.0-36.0); Mean Corpuscular Volume 102.9 fL (80.0-100.0); Mean Platelet Volume 11.5 fL (9.4-12.4); Monocytes # (auto) 0.39 K/uL (0.11-0.59); Monocytes % (auto) 7.2 %; Neutrophils # (auto) 3.96 K/uL (1.40-6.50); Neutrophils % (auto) 73.5 %; Platelet Count 85 K/uL (130-400); RDW Coefficient of Variation 15.8 % (11.5-14.5); RDW Standard Deviation 60.6 fL (36.4-46.3); Red Blood Count 3.39 M/uL (4.20-5.40); White Blood Count 5.39 K/ul (4.8-10.8)
[2023-06-07] MEDS: ENOXAPARIN INJ 40 MG/0.4 ML SYR SQ SCH ×2 (07:34→21:04)
[2023-06-07] MEDS: ERTAPENEM SODIUM 1,000 MG in SYRINGE 0 ML IV SCH (07:35)
[2023-06-07] MEDS: DICLOFENAC SOD 1% GEL 100 GM TUBE EXT SCH ×4 (07:35→21:04)
[2023-06-07] MEDS: FERROUS GLUCONATE 324 MG TAB PO SCH ×2 (07:35→16:55)
[2023-06-07] MEDS: FOLIC ACID 1 MG TAB PO SCH (07:35)
[2023-06-07] MEDS: PANTOprazole 40 MG TAB PO SCH (07:35)
[2023-06-07] MEDS: FUROSEMIDE 40 MG/4 ML VIAL IV SCH ×2 (07:36→21:04)
[2023-06-07] MEDS: POTASSIUM CHLORIDE CRTAB 20 MEQ TABCR PO SCH ×2 (12:07→21:04)
--- NOTE | 2023-06-07 15:44 | Hospitalist Progress Note ---
Date of Service June 07, 2023 Assessment & Plan (1) Sepsis due to urinary tract infection: Plan: ESBL E. coli isolated in the urine. She is now on intravenous ertapenem through June 11. CT abdomen/pelvis revealed cystitis and fatty liver (2) Encephalopathy: Plan: Acute combined toxic and metabolic encephalopathy present on admission. Gabapentin has been discontinued. Continue to treat UTI. No evidence of CO2 narcosis on ABGs. Improved (3) Elevated troponin: Plan: Probable supplydemand mismatch. No evidence of acute coronary syndrome. (4) Generalized weakness: Plan: Secondary to sepsis. PT/OT consults placed. She says that she can ambulate with a walker (5) Esophageal reflux: Plan: Stable. Continue Protonix (6) Avascular necrosis of bone of left hip: Plan: Noted on CT abdomen/pelvis. She denies any pain in the hips while at rest. Follow-up with orthopedics as an outpatient if desired but she is mostly wheelchair-bound. Gabapentin has been discontinued due to lethargy (7) CKD (chronic kidney disease) stage 3, GFR 30-59 ml/min: Plan: Stable. Monitor intake and output. Serial labs (8) Anemia: Plan: Macrocytic. Low levels of folic acid noted. She is now on folic acid supplementation. No overt evidence of blood loss. She is not iron deficient Plan Anticipate eventual return to [facility]. Possibly tomorrow, June 08. Ultrasound-guided IV placement for continued ertapenem through June 11 Admission and Anticipated Discharge Date Admission Date: June 03, 2023 Subjective Awake and able to converse today. Gabapentin was discontinued yesterday, June 06, due to lethargy. Hopefully she can get along without it. White blood cell count continues to trend downward. She remains on ertapenem 1 g IV daily through June 11. IV team has stated that an ultrasound-guided IV would be appropriate for treatment and she does not need a midline or PICC placed. Will repeat chest x-ray again tomorrow, June 08. Potassium replacement underway. Hopefully she can return to [facility] tomorrow, June 08 on IV or ertapenem 1 g daily through June 11 she continues to diurese nicely with parenteral Lasix 60 mg IV every 12 hours. Review of Systems 2 Review of Systems: Constitutional-no fever or chills ENT-no blurred vision, no double vision, no epistaxis, no sore throat Respiratory-no cough, no wheezing, no shortness of breath Cardiac-no palpitations, no chest pain, no syncope GI-no nausea, vomiting, diarrhea, melena, hematochezia -no urinary retention, no urinary incontinence, no dysuria, no hematuria Musculoskeletal-no joint pain, no muscle tenderness Skin-no bruising, no rashes, no pruritus Neuro-no isolated weakness, no paresthesia, no weakness Psych-no depression, no anxiety Physical Exam 2 Physical Exam: General-much less lethargic. She is able to converse appropriately. Morbidly obese and appears to be bedfast HEENT-head atraumatic and normocephalic, pupils equal and reactive to light, extraocular muscles intact Neck-no lymphadenopathy or thyromegaly, trachea midline Chest-diminished breath sounds bilaterally from anterior approach. No wheezing or rhonchi Cardiac-regular rate and rhythm, normal S1 and S2 Abdomen-normal bowel sounds, no hepatosplenomegaly Extremities-chronic appearing bilateral lower extremity edema below the knees Neuro- no apparent focal deficits Psych-flat affect Results & Data Results & Data Vital Signs (Past 12 Hours) Vital Signs Temp Pulse Resp BP BP Pulse Ox O2 Del Method 06/07/23 15:33 36.4 C L 69 16 117/78 95 Room Air 06/07/23 09:46 Room Air 06/07/23 07:29 36.5 C 75 18 119/75 95 Room Air Laboratory Results 06/07/23 06:24 06/07/23 06:24 PG Care Time/CCT Total # of Minutes Spent Total Time Spent with Patient: Total time spent is greater than 50% in coordination of care (as documented) at patient's floor/unit and/or counseling patient: Coding Level of Care Code 03621 SUB INP/OBS CARE 3/50MIN Diagnoses Sepsis due to urinary tract infection A41.9; N39.0 Encephalopathy G93.40 Elevated troponin R79.89 Generalized weakness R53.1 Esophageal reflux K21.9 Avascular necrosis of bone of left hip M87.052 CKD (chronic kidney disease) stage 3, GFR 30-59 ml/min N18.30 Anemia D64.9
[2023-06-07 19:33] VITALS: PULSE 73
[2023-06-07] MEDS: ATORVASTATIN 20 MG TAB PO SCH (21:04)
[2023-06-08] MEDS: ACETAMINOPHEN 325 MG TAB PO PRN (04:32)
[2023-06-08 06:22] LABS: Basophils # (auto) 0.03 K/uL (0.00-0.20); Basophils % (auto) 0.5 %; Eosinophils % (auto) 1.5 %; Hematocrit (blood only) 35.7 % (37.0-47.0); Hemoglobin 10.9 g/dl (12.0-16.0); Immature Granulocytes # (auto) 0.05 K/uL (0.01-0.20); Immature Granulocytes % (auto) 0.8 %; Lymphocytes # (auto) 1.19 K/uL (1.20-3.40); Mean Corpuscular Hemoglobin 31.1 pg (25.0-34.0); Mean Corpuscular Hgb Conc 30.5 g/dL (32.0-36.0); Mean Platelet Volume 11.4 fL (9.4-12.4); Monocytes # (auto) 0.68 K/uL (0.11-0.59); Monocytes % (auto) 10.3 %; Neutrophils # (auto) 4.57 K/uL (1.40-6.50); Neutrophils % (auto) 68.9 %; Platelet Count 73 K/uL (130-400); RDW Coefficient of Variation 15.8 % (11.5-14.5); RDW Standard Deviation 58.6 fL (36.4-46.3); White Blood Count 6.62 K/ul (4.8-10.8)
[2023-06-08 06:37] LABS: BUN Creatinine Ratio 20.3 (10-20); Calcium 8.2 mg/dl (8.6-10.3); Est GFR (African American) 44.6 ml/min; Est GFR (Non-African American) 38.5 ml/min; Potassium 3.6 mmol/L (3.5-5.1)
[2023-06-08] MEDS ORDERED: bisacodyL 10 MG SUPP PR STA (07:18)
[2023-06-08 07:35] VITALS: RESP 18; TEMP 97.9; O2SAT 92
[2023-06-08] MEDS: POTASSIUM CHLORIDE CRTAB 20 MEQ TABCR PO SCH (07:38)
[2023-06-08] MEDS: ENOXAPARIN INJ 40 MG/0.4 ML SYR SQ SCH (07:38)
[2023-06-08] MEDS: PANTOprazole 40 MG TAB PO SCH (07:40)
[2023-06-08] MEDS: FERROUS GLUCONATE 324 MG TAB PO SCH (07:40)
[2023-06-08] MEDS: FOLIC ACID 1 MG TAB PO SCH (07:40)
[2023-06-08] MEDS: DICLOFENAC SOD 1% GEL 100 GM TUBE EXT SCH ×2 (07:41→12:40)
[2023-06-08] MEDS: FUROSEMIDE 40 MG/4 ML VIAL IV SCH (07:42)
[2023-06-08] MEDS: ERTAPENEM SODIUM 1,000 MG in SYRINGE 0 ML IV SCH (07:48)
--- NOTE | 2023-06-08 07:52 | XRay Report ---
XR chest 1V portable HISTORY: Shortness of breath. Pulmonary vascular congestion. COMPARISON: Chest 06/06/2023. FINDINGS: There are low lung volumes. No pneumothorax. No pleural effusions. The heart remains enlarg ed. Diffuse interstitial thickening persists and favors mild congestive change. No new focal lung con solidations identified. Prior cholecystectomy. Old, healed left clavicle fracture. IMPRESSION: No change in the cardiomegaly and mild pulmonary vascular congestion. ACT 112: Negative or not required by law. Electronically signed by: Tarun Howard M.D. 06/08/2023 7:51 AM
[2023-06-08] MEDS ORDERED: POLYETHYLENE (MIRALAX) 17 GM PACK PO SCH (09:00)
--- NOTE | 2023-06-08 13:52 | Discharge Summary ---
Date of Service June 08, 2023 Admission HPI Per Admitting Provider The patient is a 77-year-old female with a past medical history including right shoulder rotator cuff arthropathy, urinary tract infection, previous COVID-19 infection, brain tumor, esophageal reflux, metastatic large cell and lymphoma in remission. She presents to the emergency department with a cute onset of nausea vomiting this morning, with a total of 4 episodes. She has had generalized weakness, feels dehydrated with mouth being very dry, but denies abdominal pain. Physical examination, and CT scan abdomen pelvis are consistent with sepsis secondary to cystitis/UTI, and is referred to the hospitalist service for admission and treatment Principal Diagnosis ESBL E. coli UTI, sepsis, acute metabolic encephalopathy, pulmonary vascular congestion, demand ischemia, folate deficiency Discharge Exam General-alert and oriented. Morbidly obese HEENT-head atraumatic and normocephalic, pupils equal and reactive to light, extraocular muscles intact Neck-no lymphadenopathy or thyromegaly, trachea midline Chest-diminished breath sounds bilaterally from anterior approach. No wheezing or rhonchi Cardiac-regular rate and rhythm, normal S1 and S2 Abdomen-normal bowel sounds, no hepatosplenomegaly Extremities-chronic appearing bilateral lower extremity edema below the knees Neuro- no apparent focal deficits Psych-flat affect Discharge Data Allergies Allergy/AdvReac Type Severity Reaction Status Date / Time Penicillins Allergy Severe Anaphylaxis Verified 06/03/23 16:20 pollen extracts Allergy Intermediate ITCHY Verified 06/03/23 16:20 EYES, SNEEZING, CONGESTION BASE METALS Allergy Mild Rash Uncoded 06/03/23 16:20 Consultations 06/03/23 18:36 ED Decision to Admit Stat Ordered Studies 06/03/23 17:06 CT Abd and Pelvis [CT abd pelvis wo con] Stat 06/03/23 18:34 CT head/brain wo con Stat Hospital Course (1) Sepsis due to urinary tract infection: ESBL E. coli isolated in the urine. She is now on intravenous ertapenem through June 11. CT abdomen/pelvis revealed cystitis and fatty liver (2) Encephalopathy: Acute combined toxic and metabolic encephalopathy present on admission. Gabapentin has been discontinued. Continue to treat UTI. No evidence of CO2 narcosis on ABGs. Improved (3) Elevated troponin: Probable supplydemand mismatch. No evidence of acute coronary syndrome. (4) Generalized weakness: Secondary to sepsis. PT/OT consults placed. She says that she can ambulate with a walker (5) Esophageal reflux: Stable. Continue Protonix (6) Avascular necrosis of bone of left hip: Noted on CT abdomen/pelvis. She denies any pain in the hips while at rest. Follow-up with orthopedics as an outpatient if desired but she is mostly wheelchair-bound. Gabapentin has been discontinued due to lethargy (7) CKD (chronic kidney disease) stage 3, GFR 30-59 ml/min: Stable. Monitor intake and output. Serial labs (8) Anemia: Macrocytic. Low levels of folic acid noted. She is now on folic acid supplementation. No overt evidence of blood loss. She is not iron deficient Plan Discharge back to [place] care today, June 08. She will remain on intravenous ertapenem through June 11 Total Time Total Time Spent Total Time Spent (In Minutes): 45 minutes Discharge Plan Discharge Items Patient Disposition: Transfer [facility] Reason For Visit: SEPSIS DUE TO UTI Discharge Diagnosis: ESBL E. coli UTI, sepsis, acute metabolic encephalopathy, pulmonary vascular congestion, demand ischemia, folate deficiency Activity: Resume your previous activity Non-emergency contact: Primary Care Provider Call non-emergency contact if: you have any medication questions and your symptoms worsen Follow-up/Referrals: [facility] [Primary Care Provider] - Diet: Regular and Heart Healthy Addtl Attending Provider Instructions: Continue intravenous ertapenem through June 11 Pending Studies at Discharge: No Stand-Alone Forms: My [facility] Skilled Items Patient informed of condition?: Yes DNR: Yes Discharge Level of Care: Skilled Communicable Disease: No Discharge Prognosis: Stable Lines: US Guided Peripheral IV Urinary Catheter: No Medications and DC Order Prescriptions: New ertapenem 1 gram recon soln 500 mg IV Q8H 3 Days Qty: 10 0RF folic acid 1 mg Tablet 1 mg PO QAM Qty: 0 0RF polyethylene glycol 3350 [Miralax] 17 gram Powder In Packet 17 g PO DAILY Qty: 0 0RF ferrous gluconate 324 mg (38 mg iron) Tablet 324 mg PO BIDM Qty: 0 0RF Continued atorvastatin 20 mg tablet 20 mg PO HS pantoprazole 40 mg Tablet,Delayed Release (Dr/Ec) 40 mg PO DAILY acetaminophen [Tylenol] 325 mg Tablet 650 mg PO Q6H MDD 3 GRAMS APAP/24 HOURS PRN (Reason: PAIN/FEVER) promethazine 25 mg Tablet 25 mg PO Q6H PRN (Reason: NAUSEA/VOMITING) Rx Instructions: MAY GIVE IM IF UNABLE TO TAKE PO. STARTED 06/03/23, ENDS 06/17/23. nystatin 100,000 unit/gram Powder 1 applic TOPICAL BID Rx Instructions: STARTED 06/03/23 WITH PM DOSE FOR 14 DAYS, APPLY UNDER BREASTS potassium chloride 20 mEq Tablet Extended Release 40 meq PO BIDM Discontinued gabapentin 100 mg Capsule 100 mg PO BID Discharge Orders: Discharge Order (Routine); Ordered 06/08/23 Ordered By: Lewis Peguero Admission Data Admit Date/Time: 06/03/23 20:46 Attending Provider: Lewis Peguero Admit Provider: Gagandeep Hoffman Primary Care Provider: Viktor Salcedo Other Providers: Viktor Salcedo; Gagandeep Hoffman Coding Level of Care Code 08605 INP/OBS DISCH >30 MIN Diagnoses Sepsis due to urinary tract infection A41.9; N39.0 Encephalopathy G93.40 Elevated troponin R79.89 Generalized weakness R53.1 Esophageal reflux K21.9 Avascular necrosis of bone of left hip M87.052 CKD (chronic kidney disease) stage 3, GFR 30-59 ml/min N18.30 Anemia D64.9
[2023-06-08 14:11] VITALS: BP 117/78
[2023-06-09] MEDS ORDERED: levoFLOXacin/D5W 500 MG/100 ML BAG IV SCH (20:00)
== END 2023-06-08 15:05 | DRG 871 ==
LOC: ED 14:26 → SUATTDRO 20:46 → 4W 20:46 → 3E 06-04 15:52